=== PATIENT | female | born 1945 | race Caucasian/White ===

== ENCOUNTER 2019-07-04 01:27 | Day surgery (SDC) | payer MEDICARE, SELFPAY ==
[2019-07-02 13:31] VITALS: BMI 25.4
[2019-07-04 08:20] VITALS: BP 146/88; PULSE 80; RESP 16; TEMP 36.2; O2SAT 98; BMI 25.4
[2019-07-04] MEDS: LACTATED RINGERS 1,000 ML 150 ML IV CONT (08:57)
--- NOTE | 2019-07-04 09:13 | P.PNAN_ITS ---
Anes - Initial Pre Proc Eval Procedure: Operation Date: 07/04/19 09:30 Proposed Procedures p Screening Colonoscopy - Christopher Madsen MD Date/Time: 07/04/19 09:13 Surgeon: Christopher Madsen MD Pre Op Diagnosis: Hx Of Colon Polyps Patient Data Age: 73 Gender: F Height: 5 ft 2.4 in Weight: 64 kg Last Vital Signs Temp 97.2 F L 07/04/19 08:20 Pulse 80 07/04/19 08:20 Resp 16 07/04/19 08:20 BP 146/88 H 07/04/19 08:20 Pulse Ox 98 07/04/19 08:20 Allergies Allergy/AdvReac Type Severity Reaction Status Date / Time cephalothin [From Seffin] Allergy Mild Hypotension Verified 07/04/19 08:44 codeine Allergy Mild HYPERACTIVE Verified 07/04/19 08:44 morphine Allergy Unknown Nausea and Verified 07/04/19 08:44 Vomiting ibuprofen AdvReac Mild Confusion Verified 07/04/19 08:44 Home Medications Medication Instructions Recorded Confirmed Type losartan 100 1 tablet PO DAILY #90 tablet 05/12/19 07/04/19 Rx mg-hydrochlorothiazide 12.5 mg tablet paroxetine HCl 10 mg PO DAILY 07/02/19 07/04/19 History Patient hx anesthesia problems: none Family hx anesthesia problems: none [facility] Past Medical History Medical History (Updated 07/04/19 @ 08:50 by Shaq Epps MD) Hypertension Family History Family History (System 06/30/19 @ 14:22 by Estella Maxwell) Mother Hypertension Cerebrovascular accident Family history of coronary artery disease Social History Social History (System 06/30/19 @ 14:22 by Estella Maxwell) Smoking status: Smoker, status unknown Alcohol intake: current Anes - Eval Final PreProcedure Day of Procedure 07/04/19 09:13 Patient weight: normal Heart: regular rate and rhythm Lungs: clear to auscultation Airway: Mallampati scale class II Neurological: alert and oriented Last oral intake: >/= 8 hours ASA classification: II Emergent: no Anesthetic plan: proceed Anesthesia type and monitoring: general GIVS and standard monitoring Informed Consent: The patient's anesthetic plan and its attendant risks and benefits were discussed with the patient/family/POA. Questions were solicited and answers provided to the satisfaction of the patient/family/POA.
--- NOTE | 2019-07-04 09:22 | P.HP_ITS ---
History of Present Illness History of Present Illness Consent: Risks, benefits, and alternatives have been discussed and questions answered. Patient agrees to proceed with procedure. Chief complaint: Hx Of Colon Polyps Narrative: Daja Mckinley is a 73 year old female for screening colonoscopy. She has a history of polyps. [facility] Past Medical History Medical History Hypertension Family History Family History Mother Hypertension Cerebrovascular accident Family history of coronary artery disease Social History Social History Smoking status: Smoker, status unknown Alcohol intake: current Meds Home Medications and Allergies Home Medications Medication Instructions Recorded Confirmed Type losartan 100 1 tablet PO DAILY #90 tablet 05/12/19 07/04/19 Rx mg-hydrochlorothiazide 12.5 mg tablet paroxetine HCl 10 mg PO DAILY 07/02/19 07/04/19 History Allergies Allergy/AdvReac Type Severity Reaction Status Date / Time cephalothin [From Seffin] Allergy Mild Hypotension Verified 07/04/19 08:44 codeine Allergy Mild HYPERACTIVE Verified 07/04/19 08:44 morphine Allergy Unknown Nausea and Verified 07/04/19 08:44 Vomiting ibuprofen AdvReac Mild Confusion Verified 07/04/19 08:44 Vital Signs Vital Signs - 24 hr 07/04/19 08:20 Temperature 36.2 C L Pulse Rate 80 Respiratory Rate 16 Blood Pressure 146/88 H Pulse Oximetry 98 Exam Resp: Auscultation: clear to auscultation bilaterally Cardio: Rate: regular rate Rhythm: regular rhythm GI: GI Palp: Yes Soft to palpation and No Tenderness to palpation present (GI) Assessment and Plan Assessment and plan (1) Personal history of colonic polyps: Code(s): Z86.010 - Personal history of colonic polyps Status: Acute Assessment and Plan: Colonoscopy with possible biopsy or polypectomy or cautery or injection of substances.
[2019-07-04 09:50] VITALS: BP 141/59; PULSE 60; RESP 20; O2SAT 99
[2019-07-04 10:00] VITALS: BP 146/56; PULSE 61; RESP 18; O2SAT 99
[2019-07-04 10:10] VITALS: BP 159/58; PULSE 61; RESP 18; O2SAT 100
== END 2019-07-04 10:31 | disposition home or self-care (01) ==
PROVIDERS: PCP Family Medicine; Visit Provider Internal Medicine Gastroenterology
PROC: 0DJD8ZZ Inspection of Lower Intestinal Tract, Via Natural or Artificial Opening Endoscopic (ICD-10-PCS; CPT 45378; principal; 2019-07-04 09:30)
DX: Z12.11 Encounter for screening for malignant neoplasm of colon (principal); D12.4 Benign neoplasm of descending colon; I10 Essential (primary) hypertension
CPT/HCPCS: 45385; 88305; J2704; J7120

== ENCOUNTER 2020-08-06 14:25 | Outpatient (CLI) | payer MEDICARE, SELFPAY | END 2020-08-06 14:26 | disposition home or self-care (01) | PROVIDERS: PCP Family Medicine; Visit Provider Internal Medicine Gastroenterology | DX: R19.7 Diarrhea, unspecified (principal) | CPT/HCPCS: 87324; 87493 ==

== ENCOUNTER 2020-11-17 07:31 | Outpatient (CLI) | payer MEDICARE, SELFPAY ==
--- NOTE | ~2020-11-17 | CT_ITS ---
EXAMINATION: CT abdomen pelvis w con EXAM DATE: 11/17/2020 08:07 INDICATION: R10.30 - Lower abdominal pain, unspecified . TECHNIQUE: Spiral CT of the abdomen and pelvis was performed following intravenous injection of 100 m L Omnipaque 350. Axial, coronal and sagittal images of the abdomen and pelvis were reviewed. The do se-length product (DLP) for this examination was 349.86 mGy-cm. The exposure was tailored according to patient size (auto mA exposure control), and iterative reconstruction (ASIR) was used as additiona l dose reduction technique. Comparison is made to prior examination from 07/20/2017. FINDINGS: Left adrenal nodularity, probably coupled adenomas larger measuring about 2.8 cm. Appearanc e unchanged. Liver, spleen, right adrenal gland and pancreas are unremarkable. Gallbladder is unrema rkable. No biliary obstruction. Portal and splenic veins are patent. Kidneys enhance symmetrically . There is no hydronephrosis. The uterus is unremarkable. The bladder is unremarkable. There is no retroperitoneal or pelvic lymphadenopathy. There is moderate scattered arteriosclerotic disease . There is nonrotation/malrotation spectrum with the small bowel on the right and most of the colon on the left, although cecal base is subhepatic in position and has fluid, but does not appear obstructed . Colonic redundancy with moderate amount of colonic stool throughout the other portions of the colon . The cecum is subhepatic in position with multiple loops of small bowel and has fluid, but is normal in caliber. The appendix is normal. The stomach and small bowel are unremarkable. There is expecte d amount of colonic stool. No free intraperitoneal gas. The heart is normal in size. There are n o pericardial or pleural effusions. The lung bases are unremarkable. Mild lumbar levoscoliosis. The re are no osteoblastic or osteolytic lesions identified. IMPRESSION: 1. Malrotation/nonrotation spectrum with cecum subhepatic in position, cecal air-fluid level but no obstruction suspected. 2. Left adrenal adenomas. 3. Small umbilical hernia. Reviewed, dictated and finalized at location B. IMPRESSION: 1. Malrotation/nonrotation spectrum with cecum subhepatic in position, cecal a ir-fluid level but no obstruction suspected. 2. Left adrenal adenomas. 3. Small umbilical hernia.
[2020-11-17 07:59] LABS: Estimated Glomerular Filt Rate > 60
== END 2020-11-17 07:32 | disposition home or self-care (01) ==
LOC: ANHIMG 07:36
PROVIDERS: PCP Family Medicine; Visit Provider Internal Medicine Gastroenterology
DX: R10.30 Lower abdominal pain, unspecified (principal); D35.02 Benign neoplasm of left adrenal gland; K42.9 Umbilical hernia without obstruction or gangrene
CPT/HCPCS: 74177; Q9967

== ENCOUNTER 2021-01-08 13:03 | Outpatient (CLI) | payer MEDICARE, SELFPAY | END 2021-01-08 13:04 | disposition home or self-care (01) | PROVIDERS: PCP Family Medicine; Visit Provider Nurse Practitioner Family | DX: R19.7 Diarrhea, unspecified (principal) | CPT/HCPCS: 87324 ==

== ENCOUNTER 2021-02-17 13:09 | Outpatient (CLI) | payer MEDICARE, SELFPAY | END 2021-02-17 13:10 | disposition home or self-care (01) | PROVIDERS: PCP Family Medicine; Visit Provider Nurse Practitioner Family | DX: K52.9 Noninfective gastroenteritis and colitis, unspecified (principal); A04.72 Enterocolitis due to Clostridium difficile, not specified as recurrent | CPT/HCPCS: 87045; 87177; 87209; 87324; 87427 ==

== ENCOUNTER 2021-03-09 00:58 | Day surgery (SDC) | payer MEDICARE, SELFPAY ==
[2021-02-28 12:07] VITALS: BMI 27.3
--- NOTE | 2021-03-08 16:14 | PM.HPGS ---
History of Present Illness History of Present Illness Consent: Risks, benefits, and alternatives have been discussed and questions answered. Patient agrees to proceed with procedure. 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 Now she has chronic diarrhea, despite no longer having infection. We are suspecting that she may have developed inflammatory bowel disease secondary to her prolonged illness, or have at the minimum, microscopic colitis Review of Systems Review of Systems: All systems reviewed & are unremarkable except as noted in HPI and below PMFSH Past Medical History Medical History Abdominal pain BMI 26.0-26.9,adult BMI 27.0-27.9,adult BMI 28.0-28.9,adult Cigarette smoker one half pack a day or less Hypertension Normal colonoscopy Family History Family History Mother Hypertension Cerebrovascular accident Family history of coronary artery disease Social History Social History Social History: yes Smoking packs per day: 0.50 Smoking cigarettes per day: 10.0 Years smoked: 50 Smoking pack-years: 25.00 Smoking status: Current every day smoker Alcohol intake: current Drinks per week: 2 Substance use: never Living arrangements: alone Spiritual care concerns: No Meds Home Medications and Allergies Home Medications Medication Instructions Recorded Confirmed Type escitalopram oxalate 10 mg tablet 10 mg PO DAILY 05/26/20 02/28/21 History dicyclomine 10 mg capsule 10 mg PO QID PRN #120 cap 10/22/20 02/28/21 Rx diphenoxylate-atropine 2.5 1 tablet PO TID #270 tablet 12/23/20 02/28/21 Rx mg-0.025 mg tablet losartan 100 1 tablet PO DAILY #90 tablet 02/23/21 03/09/21 Rx mg-hydrochlorothiazide 12.5 mg tablet Lactobacillus rhamnosus GG 1 cap PO DAILY 02/28/21 02/28/21 History [Culturelle] Saccharomyces boulardii [Florastor] 250 mg PO DAILY 02/28/21 02/28/21 History Allergies Allergy/AdvReac Type Severity Reaction Status Date / Time cephalothin [From Seffin] Allergy Mild Hypotension Verified 03/09/21 06:48 codeine Allergy Mild HYPERACTIVE Verified 03/09/21 06:48 morphine Allergy Unknown Nausea and Verified 03/09/21 06:48 Vomiting ibuprofen AdvReac Mild Confusion Verified 03/09/21 06:48 Exam Const: General: alert Orientation/consciousness: patient oriented x3 Resp: Auscultation: clear to auscultation bilaterally Cardio: Rhythm: regular rhythm GI: GI Palp: Yes Soft to palpation and No Tenderness to palpation present (GI) Neuro: General: patient oriented x3 Assessment and Plan Assessment and plan (1) Chronic diarrhea: Code(s): K52.9 - Noninfective gastroenteritis and colitis, unspecified Status: Acute Assessment and Plan: Colonoscopy with possible biopsy or polypectomy or cautery or injection of substances.
[2021-03-09 06:50] VITALS: BP 182/65; PULSE 86; TEMP 36.1; O2SAT 95
[2021-03-09] MEDS: LACTATED RINGERS 1,000 ML 150 ML IV CONT (07:12)
--- NOTE | 2021-03-09 07:19 | WPDANESEPPF ---
Anes - Initial Pre Proc Eval Procedure: Operation Date: 03/09/21 08:00 Proposed Procedures p Colonoscopy - Christopher Madsen MD Date/Time: 03/09/21 07:19 Surgeon: Christopher Madsen MD Pre Op Diagnosis: diarrhea Patient Data Age: 75 Gender: F Height: 1.57 m Weight: 71.5 kg Last Vital Signs Temp 36.1 C L 03/09/21 06:50 Pulse 86 03/09/21 06:50 BP 182/65 H 03/09/21 06:50 Pulse Ox 95 03/09/21 06:50 Allergies Allergy/AdvReac Type Severity Reaction Status Date / Time cephalothin [From Seffin] Allergy Mild Hypotension Verified 03/09/21 06:48 codeine Allergy Mild HYPERACTIVE Verified 03/09/21 06:48 morphine Allergy Unknown Nausea and Verified 03/09/21 06:48 Vomiting ibuprofen AdvReac Mild Confusion Verified 03/09/21 06:48 Home Medications Medication Instructions Recorded Confirmed Type escitalopram oxalate 10 mg tablet 10 mg PO DAILY 05/26/20 02/28/21 History dicyclomine 10 mg capsule 10 mg PO QID PRN #120 cap 10/22/20 02/28/21 Rx diphenoxylate-atropine 2.5 1 tablet PO TID #270 tablet 12/23/20 02/28/21 Rx mg-0.025 mg tablet losartan 100 1 tablet PO DAILY #90 tablet 02/23/21 03/09/21 Rx mg-hydrochlorothiazide 12.5 mg tablet Lactobacillus rhamnosus GG 1 cap PO DAILY 02/28/21 02/28/21 History [Culturelle] Saccharomyces boulardii [Florastor] 250 mg PO DAILY 02/28/21 02/28/21 History Patient hx anesthesia problems: none Family hx anesthesia problems: none Results Review: All pre-operative results and documents have been reviewed as part of the pre-operative evaluation. [facility] Past Medical History Medical History Abdominal pain BMI 26.0-26.9,adult BMI 27.0-27.9,adult BMI 28.0-28.9,adult Cigarette smoker one half pack a day or less Hypertension Normal colonoscopy Family History Family History Mother Hypertension Cerebrovascular accident Family history of coronary artery disease Social History Social History Social History: yes Smoking packs per day: 0.50 Smoking cigarettes per day: 10.0 Years smoked: 50 Smoking pack-years: 25.00 Smoking status: Current every day smoker Alcohol intake: current Drinks per week: 2 Substance use: never Living arrangements: alone Spiritual care concerns: No Anes - Eval Final PreProcedure Day of Procedure 03/09/21 07:19 Patient weight: overweight Heart: regular rate and rhythm Lungs: clear to auscultation Airway: Mallampati scale class II Neurological: alert and oriented Last oral intake: >/= 8 hours ASA classification: III Emergent: no Anesthetic plan: proceed Anesthesia type and monitoring: general GIVS and standard monitoring Results Review: All pre-operative results and documents have been reviewed as part of the pre-operative evaluation. Informed Consent: The patient's anesthetic plan and its attendant risks and benefits were discussed with the patient/family/POA. Questions were solicited and answers provided to the satisfaction of the patient/family/POA.
[2021-03-09 08:28] VITALS: BP 123/50; PULSE 56; RESP 16; O2SAT 97
[2021-03-09 08:38] VITALS: BP 175/65; PULSE 61; RESP 23; O2SAT 100
[2021-03-09 08:48] VITALS: BP 179/89; PULSE 66; RESP 23; O2SAT 98
== END 2021-03-09 08:58 | disposition home or self-care (01) ==
PROVIDERS: PCP Family Medicine; Visit Provider Internal Medicine Gastroenterology
PROC: 0DJD8ZZ Inspection of Lower Intestinal Tract, Via Natural or Artificial Opening Endoscopic (ICD-10-PCS; CPT 45378; principal; 2021-03-09 08:00)
DX: K52.9 Noninfective gastroenteritis and colitis, unspecified (principal); K63.5 Polyp of colon; K62.1 Rectal polyp; K64.8 Other hemorrhoids; I10 Essential (primary) hypertension; F17.210 Nicotine dependence, cigarettes, uncomplicated
CPT/HCPCS: 45380; 45385; 88305; J2704; J7120

== ENCOUNTER 2021-05-21 15:09 | Outpatient (CLI) | payer MEDICARE, SELFPAY ==
[2021-05-21 05:28] LABS: Toxigenic C. Diff NEGATIVE (NEGATIVE)
== END 2021-05-21 15:10 | disposition home or self-care (01) ==
LOC: ANHLAB 05-31 10:33
PROVIDERS: PCP Family Medicine; Visit Provider Internal Medicine Gastroenterology
DX: R19.7 Diarrhea, unspecified (principal)
CPT/HCPCS: 87324; 87493; 89055

== ENCOUNTER 2021-06-25 19:56 | Emergency (ER) | payer MEDICARE, SELFPAY ==
[2021-06-25] VITALS (7 sets, daily range): BP systolic 136–210; BP diastolic 73–84; PULSE 71–82; RESP 10–20; TEMP 36.3; O2SAT 96–100
--- NOTE | ~2021-06-25 | CT_ITS ---
EXAMINATION: CT abdomen pelvis w con DATE: 06/25/2021 20:59 INDICATION: Lower abdominal pain. History of irritable bowel syndrome. TECHNIQUE: Computed tomography (CT) of the abdomen and pelvis was performed with 100 cc Omnipaque 350 intravenous contrast. The dose-length product was 326.17 mGy-cm. Automated exposure control and ite rative reconstruction technique were employed. COMPARISON: CT dated 11/17/2020. FINDINGS: There is malrotation of the bowel. No bowel obstruction identified. Small fat-containing um bilical hernia. Prominent parametrial vessels are noted bilaterally, which can be seen with pelvic co ngestion syndrome. There is atherosclerosis of the aorta without aneurysm. The liver, spleen, pancrea s, right adrenal gland and kidneys are unremarkable. Gallbladder is present. No lymphadenopathy. No l ytic or blastic lesions. Moderate lower lumbar spondylosis with grade 1 spondylolisthesis at L4-5 sec ondary to facet hypertrophy. There are left adrenal adenoma glands. IMPRESSION: 1. Dilated bilateral parametrial vessels, which can be seen with pelvic congestion syndrome. 2: Bowel malrotation. No obstruction. Reviewed, dictated and finalized at location A. [employer] IMPRESSION: 1. Dilated bilateral parametrial vessels, which can be seen with pelvic congest ion syndrome. 2: Bowel malrotation. No obstruction.
--- NOTE | 2021-06-25 20:06 | ECG_ITS ---
Measurements Intervals [place] Rate: 75 P: 51 DE: 219 QRS: -22 QRSD: 146 T: 114 QT: 413 QTc: 464 Interpretive Statements SINUS RHYTHM WITH FIRST DEGREE AV BLOCK LEFT BUNDLE BRANCH BLOCK [120+ ms QRS DURATION, 80+ ms Q/S IN V1/V2, 85+ ms R IN I/aVL/V5/V6] BASELINE ARTIFACT V5 ABNORMAL ECG NO PREVIOUS ECG AVAILABLE FOR COMPARISON Electronically Signed On 06-26-2021 11:05:38 [employer] by Jong Villanueva M.D.
[2021-06-25 20:16] LABS: Basophils Absolute Auto 0.1 K/mm3 (0.0-0.1); Basophils Percent Auto 0.5 % (0.2-1.2); Eosinophils Absolute Auto 0.2 K/mm3 (0-0.3); Eosinophils Percent Auto 1.3 % (0-4.4); Hematocrit 40.1 % (37.0-47.0); Hemoglobin 13.8 g/dL (12.0-15.0); Immature Granulocyte Absolute 0.03 K/mm3 (0.00-0.031); Immature Granulocyte Percent A 0.3 % (0-0.5); Lymphocytes Absolute Auto 4.17 K/mm3 (0.9-3.2); Mean Corpuscular HGB Conc 34.4 g/dl (32-36); Mean Corpuscular Hemoglobin 31.3 pg (26-34); Mean Corpuscular Volume 90.9 fl (80-100); Mean Platelet Volume 9.2 fl (7.4-10.4); Monocytes Absolute Auto 0.8 K/mm3 (0.1-0.6); Monocytes Percent Auto 7.5 % (2.6-8.5); Neutrophils Percent Auto 53.4 % (45.5-73.1); Platelet Count Result 430 k/mm3 (150-375); Red Blood Count 4.41 M/mm3 (4.2-5.4); Red Cell Distribution Width 13.1 % (11.5-14.5); White Blood Count 11.3 K/mm3 (4.5-10.0)
[2021-06-25] MEDS: SODIUM CHLORIDE 0.9% IV 1,000 ML 999 ML IV CONT (20:27)
[2021-06-25 20:32] LABS: Alanine Aminotransferase 19 U/L (4-35); Albumin Level 4.6 g/dL (3.5-5.1); Alkaline Phosphatase 144 U/L (38-126); Anion Gap 9 mmol/L (8-16); Aspartate Amino Transferase 40 U/L (14-36); Bilirubin,Total 0.4 mg/dL (0.2-1.3); Blood Urea Nitrogen 9 mg/dL (7-17); Calcium 9.1 mg/dL (8.4-10.2); Carbon Dioxide 27 mmol/L (22-30); Chloride 95 mmol/L (98-107); Estimated CRCL calculation 53 ml/min; Estimated Glomerular Filt Rate > 60; Glucose 114 mg/dL (65-110); Lipase 61 U/L (23-300); Potassium 3.6 mmol/L (3.4-5.0); Sodium 131 mmol/L (137-145)
[2021-06-25 21:28] LABS: Add Urine Microscopic? NO; Appearance Urine Clear (Clear); Bilirubin Urine Negative (Negative); Blood Urine Negative (Negative); Color Urine Colorless (Yellow); Glucose Urine UA Negative (Negative); Ketones Urine Negative (Negative); Leukocyte Esterase Ur Negative LEU/UL (Negative); Nitrate Urine Negative (Negative); Protein Urine Negative (Negative); Specific Grav Ur 1.016 (1.001-1.035); Urobilinogen Urine Negative mg/dL (<2.0)
--- NOTE | 2021-06-25 21:41 | ED.ABDPAIN ---
HPI - Abdominal Pain General Chief Complaint: Abdominal Pain Stated Complaint: Abd pain, lightheaded Time Seen by Provider: 06/25/21 20:00 Source: patient History of Present Illness HPI narrative: Patient presents with abdominal pain weakness and feeling she is going to pass out. Patient reports intermittent abdominal pain for many years who she sees Dr. Madsen for. Today her symptoms appear to be a little bit worse and she was seeing black spots like she was going to pass out so she came to the ER for evaluation. She denies chest pain or shortness of breath just reports feeling weak all over. Her abdominal pain is achy, constant is primarily in her lower abdomen no radiation no clear aggravating or alleviating factors. Related Data Home Medications Medication Instructions Recorded Confirmed escitalopram oxalate 10 mg tablet 10 mg PO DAILY 05/26/20 05/17/21 Culturelle 1 cap PO DAILY 02/28/21 05/17/21 Saccharomyces boulardii [Florastor] 250 mg PO DAILY 02/28/21 05/17/21 Allergies Allergy/AdvReac Type Severity Reaction Status Date / Time cephalothin [From Seffin] Allergy Mild Hypotension Verified 05/17/21 13:04 codeine Allergy Mild HYPERACTIVE Verified 05/17/21 13:04 morphine Allergy Unknown Nausea and Verified 05/17/21 13:04 Vomiting ibuprofen AdvReac Mild Confusion Verified 05/17/21 13:04 Review of Systems Review of Systems: CONSTITUTIONAL: Denies fever, chills, or sweats. EYES: Denies visual changes, redness, or discharge. ENT: Denies rhinorrhea, congestion, sore throat, or otalgia. CARDIOVASCULAR: Denies chest pain, palpitations, or edema. RESPIRATORY: Denies cough or dyspnea. GASTROINTESTINAL: Denies nausea, vomiting, or diarrhea. GENITOURINARY: Denies dysuria or hematuria. SKIN: Denies rash or itching. MUSCULOSKELETAL: Denies back pain, joint pain, or myalgia. NEUROLOGIC: Denies headache, numbness, or focal weakness. PSYCHIATRIC: Denies anxiety or depression. All systems reviewed & are unremarkable except as noted in HPI and below PMFSH Past Medical History Medical History Abdominal pain BMI 26.0-26.9,adult BMI 27.0-27.9,adult BMI 28.0-28.9,adult Cigarette smoker one half pack a day or less Hypertension Irritable bowel syndrome with diarrhea Normal colonoscopy Family History Family History Mother Hypertension Cerebrovascular accident Family history of coronary artery disease Social History Social History Social History: yes Smoking packs per day: 0.50 Smoking cigarettes per day: 10.0 Years smoked: 50 Smoking pack-years: 25.00 Alcohol intake: current Drinks per week: 2 Substance use: never Spiritual care concerns: No Exam Narrative: GENERAL: Well-appearing, well-nourished, and in no acute distress. HEAD: Normocephalic, atraumatic. EYES: PERRLA and EOMI. ENT: Nares clear, no rhinorrhea or epistaxis. Mucous membranes moist. NECK: Supple. No masses. No JVD CHEST: Clear to auscultation. No respiratory distress. No wheezes rales or rhonchi HEART: Regular rate and rhythm. No murmur heard. Normal peripheral pulses. ABDOMEN: Mild tenderness with palpation of the lower abdomen no rebound or guarding soft, nondistended sounds. EXTREMITIES: Normal range of motion. No edema. SKIN: Warm, dry, no rash. NEURO: No focal deficits. Alert and oriented x3. PSYCH: Normal mood and affect. Course Reevaluation(s) Reevaluation #1: Patient is feeling improved results and plan reviewed with patient. Patient is comfortable outpatient plan. Date: 06/25/21 Time: 21:44 Vital Signs Vital signs: Vital Signs Temperature 36.3 C L 06/25/21 20:01 Pulse Rate 82 06/25/21 20:01 Respiratory Rate 20 06/25/21 20:01 Blood Pressure 210/73 H 06/25/21 20:01 Pulse Oximetry 100 06/25/21 20:01 Temperature 36.3 C L
== END 2021-06-25 22:05 | disposition home or self-care (01) ==
PROVIDERS: Emergency Provider Emergency Medicine; PCP Family Medicine
DX: R42 Dizziness and giddiness (principal); R10.30 Lower abdominal pain, unspecified; I10 Essential (primary) hypertension; K58.0 Irritable bowel syndrome with diarrhea; F17.210 Nicotine dependence, cigarettes, uncomplicated; I44.7 Left bundle-branch block, unspecified; I44.0 Atrioventricular block, first degree
CPT/HCPCS: 36415; 74177; 80053; 81003; 83690; 85025; 93005; 96361; 96365; 99284; J0131; J7030; Q9967

== ENCOUNTER 2021-12-21 12:41 | Outpatient (CLI) | payer MEDICARE, SELFPAY ==
[2021-12-28 20:47] LABS: Calprotectin, Stool 35 mcg/g
== END 2021-12-21 12:42 | disposition home or self-care (01) ==
LOC: ANHLAB 12:43
PROVIDERS: PCP Family Medicine; Visit Provider Internal Medicine Gastroenterology
DX: K52.9 Noninfective gastroenteritis and colitis, unspecified (principal)
CPT/HCPCS: 83993

== ENCOUNTER → 2022-01-10 14:40 | Outpatient (CLI) | payer MEDICARE, SELFPAY ==
--- NOTE | ~2022-01-10 | MM_ITS ---
EXAMINATION: MM screening [facility] BI w galindo HISTORY: Screening mammogram TECHNIQUE: Craniocaudal and mediolateral oblique 3-D tomosynthesis images were obtained and synthetic 2-D images were generated. CAD analysis was submitted and interpreted. COMPARISON: 09/27/2017, 07/28/2014 BREAST PARENCHYMAL COMPOSITION: There are scattered areas of fibroglandular density. FINDINGS: There is no suspicious mass, calcification, or architectural distortion to suggest malignan cy in either breast. There has been no suspicious interval change. IMPRESSION: 1. No mammographic evidence of malignancy. 2. Recommend routine screening mammography in one year. BI-RADS Category 1: Negative Reviewed, dictated and finalized at location A.
--- NOTE | ~2022-01-10 | DEXA_ITS ---
Bone Density Report Name: RAFAEL MCNALLY Age: 76 Sex: Female Ethnicity: White Date of : 1945 Indication: postmenopausal; screening for osteoporosis; height loss; history of glucocorticoids; prior fracture; Referring Provider: Johanny, Altagracia Renee Study: Bone densitometry was performed. Exam Date: January 10, 2022 Accession number: [id number] Bone Density: Region BMD T-score Z-score Classification AP Spine (L1-L4) 1.103 0.5 3.1 Normal Femoral Neck (Left) 0.729 -1.1 1.1 Osteopenia Total Hip (Left) 0.895 -0.4 1.6 Normal Femoral Neck (Right) 0.664 -1.7 0.6 Osteopenia Total Hip (Right) 0.827 -0.9 1.0 Normal Total Hip Mean 0.861 -0.7 1.3 Normal World Health Organization criteria for BMD impression classify patients as: Normal (T-score at or above -1.0), Osteopenia (T-score between -1.0 and -2.5), or Osteoporosis (T-score at or below -2.5). 10-year Fracture Risk(1): Major Osteoporotic Fracture 29% Hip Fracture 11% Reported Risk Factors: [place] (), Neck BMD=0.664, BMI=27.5, previous fracture, smoking, glucocorticoids (1) FRAX(R) Version 3.08. Fracture probability calculated for an untreated patient. Fracture probability may be lower if the patient has received treatment. Previous Exams: Region Exam Age BMD T-score BMD Change BMD Change Date g/cm2 vs Baseline vs Previous AP Spine(L1-L4) 01/10/2022 76 1.103 0.5 0.081 -0.010 09/27/2017 72 1.113 0.6 0.091 0.056* 07/28/2014 68 1.057 0.1 0.035 -0.012 09/04/2012 66 1.069 0.2 0.047 0.081* 03/19/2009 63 0.988 -0.5 -0.034 0.025* 11/13/2006 61 0.964 -0.8 -0.059 -0.059 09/14/2004 59 1.022 -0.2 Total Hip(Left) 01/10/2022 76 0.895 -0.4 -0.056 -0.028* 09/27/2017 72 0.923 -0.2 -0.028 -0.039* 07/28/2014 68 0.962 0.2 0.011 -0.020 09/04/2012 66 0.982 0.3 0.031 0.096* 03/19/2009 63 0.886 -0.5 -0.065 -0.053* 11/13/2006 61 0.939 0.0 -0.012 -0.012 09/14/2004 59 0.951 0.1 Total Hip(Right) 01/10/2022 76 0.827 -0.9 -0.089 -0.017 09/27/2017 72 0.844 -0.8 -0.072 -0.087* 07/28/2014 68 0.930 -0.1 0.014 0.033* 09/04/2012 66 0.898 -0.4 -0.019 0.057* 03/19/2009 63 0.840 -0.8 -0.076 -0.065* 11/13/2006 61 0.905 -0.3 -0.011 -0.011 09/14/2004 59 0.916 -0.2
== END ==
PROVIDERS: PCP Family Medicine; Visit Provider Nurse Practitioner Obstetrics & Gynecology
DX: Z12.31 Encounter for screening mammogram for malignant neoplasm of breast (principal); Z78.0 Asymptomatic menopausal state; M85.851 Other specified disorders of bone density and structure, right thigh; M85.852 Other specified disorders of bone density and structure, left thigh
CPT/HCPCS: 77063; 77067; 77080

== ENCOUNTER 2022-07-04 15:34 | Outpatient (CLI) | payer MEDICARE, SELFPAY ==
[2022-07-04 16:35] LABS: Toxigenic C. Diff NEGATIVE (NEGATIVE)
== END 2022-07-04 15:35 | disposition home or self-care (01) ==
PROVIDERS: PCP Family Medicine; Visit Provider Nurse Practitioner Family
DX: R19.7 Diarrhea, unspecified (principal)
CPT/HCPCS: 87493

== ENCOUNTER 2022-07-17 13:59 | Emergency (ER) | payer MEDICARE, SELFPAY ==
[2022-07-17] VITALS (7 sets, daily range): BP systolic 155–196; BP diastolic 63–97; PULSE 52–59; RESP 17–20; TEMP 36.6; O2SAT 96–99
--- NOTE | ~2022-07-17 | XR_ITS ---
EXAMINATION: XR chest 1V portable INDICATION: Chest pain TECHNIQUE: Portable AP chest at 1739 hours COMPARISON: None available FINDINGS: The lungs are free of acute opacities. No pleural effusion or pneumothorax. The cardiomedia stinal silhouette is normal. Calcified left hilar lymph nodes are consistent with old granulomatous d isease. There is partially imaged orthopedic hardware in the left humerus. IMPRESSION: 1. No acute cardiopulmonary abnormality. Reviewed, dictated and finalized at location F.
--- NOTE | ~2022-07-17 | CT_ITS ---
EXAMINATION: CT brain wo con DATE: 07/17/2022 15:46 INDICATION: Head injury. Headache. Hypertension. TECHNIQUE: Computed tomography (CT) of the head was performed without intravenous contrast. The mA wa s adjusted according to patient size. Iterative reconstruction technique was employed. Exam dose: 60 5.33 mGy-cm total exam DLP. COMPARISON: 08/05/2012 CT brain FINDINGS: There is nonspecific diminished attenuation of the cerebral white matter, likely due to chr onic small vessel ischemic changes. Prominent bilateral carotid siphon and supraclinoid internal manzanares tid artery calcifications are noted. Bilateral chronic basal ganglia lacunar infarcts. No intracranial mass lesion or hemorrhage or recent cerebrovascular accident is evident. No midline s hift or mass effect. No subdural or epidural hematoma. There is opacification of some posterior inferior right mastoid air cells. The mastoid air cells and included paranasal sinuses are otherwise unremarkable. No fracture or bone destruction of the cranial vault. IMPRESSION: Bilateral chronic basal ganglia lacunar infarcts Cerebral atherosclerosis and chronic small vessel ischemic changes of the cerebral white matter No acute intracranial finding or skull fracture Reviewed, dictated and finalized at Location A. Reviewed, dictated and finalized at location B. IMPRESSION: Bilateral chronic basal ganglia lacunar infarcts Cerebral atherosclerosis and chronic small vessel ischemic changes of the cereb ral white matter No acute intracranial finding or skull fracture
--- NOTE | ~2022-07-17 | CT_ITS ---
EXAMINATION: CTA chest abdomen DATE: 07/17/2022 18:39 INDICATION: Chest and abdominal pain TECHNIQUE: Computed tomographic angiography (CTA) of the chest and abdomen was performed with 100 mL Omnipque-350 intravenous contrast. Maximum intensity projection 3D-reconstructions of the aorta and o ther arteries were constructed by the technologist on a separate workstation. The dose-length product (DLP) was 286.43 mGy-cm. Automated exposure control and iterative reconstruction technique were empl oyed. COMPARISON: 06/25/2021 FINDINGS: CHEST CTA: There is no aneurysm or dissection of the thoracic aorta. There is mild calcified atherosclerosis wit hout hemodynamically significant stenosis. There is mild scarring of the lung apices. Mild emphysema is noted. There is mild dependent atelectasis. No pleural effusion or pneumothorax. No pathologically enlarged thoracic lymph nodes are identified. The heart size is normal. Calcified coronary artery at herosclerosis is noted. Calcified pulmonary nodules and calcified left hilar and subcarinal lymph nod es are consistent with old granulomatous disease. ABDOMEN AND PELVIS CTA: There is no aneurysm or dissection of the abdominal aorta. There is calcified atherosclerosis and mod erate stenosis at the origin of the celiac axis. There is calcified atherosclerosis at the origins of the superior mesenteric and inferior mesenteric arteries without hemodynamically significant stenosi s. An accessory mesenteric vessel arises from the mid abdominal aorta. There are two renal arteries b ilaterally. There is mild to moderate stenosis at the origin of the larger of the two right renal art eries. The liver, spleen, pancreas, gallbladder, and right adrenal gland are normal. There is a chron ic low-density left adrenal mass, consistent with an adenoma. The kidneys are unremarkable. No pathol ogically enlarged abdominal lymph nodes are identified. No free intraperitoneal gas or evidence of nettie wel obstruction. Severe lumbar spondylosis is noted. IMPRESSION: 1. No aneurysm or dissection of the aorta. Additional vascular disease of the abdomen as described ab ove. Reviewed, dictated and finalized at location F. IMPRESSION: 1. No aneurysm or dissection of the aorta. Additional vascular disease of the a bdomen as described above.
--- NOTE | 2022-07-17 17:31 | ECG_ITS ---
Measurements Intervals [place] Rate: 56 P: 54 SC: 200 QRS: -28 QRSD: 150 T: 142 QT: 444 QTc: 431 Interpretive Statements SINUS BRADYCARDIA LEFT BUNDLE BRANCH BLOCK ABNORMAL ECG COMPARED TO ECG 06/25/2021 20:11:00 SINUS BRADYCARDIA NOW PRESENT Electronically Signed On 07-17-2022 21:41:53 CDT by Richard Fernandes D.O.
--- NOTE | 2022-07-17 17:34 | ED.GENADULT ---
HPI - General Adult General Chief complaint: Recheck/Abnormal Lab/Rx Stated complaint: High Blood Pressure Time Seen by Provider: 07/17/22 17:12 History of Present Illness HPI narrative: 76-year-old female with a history of hypertension and IBS reports for evaluation of high blood pressure. Patient was at her GI appointment today, they took her vitals and her BP was 190 systolic and they sent her to the ED. Patient is complaining of frontal headache which she reports is at baseline headache for her. She reported migrating abdominal pain which she attributed to gas pains. The pain did not radiate anywhere and she reports it is unchanged from her normal gas pains. She denies CP, vision changes, focal numbness or weakness, difficulty ambulating, dizziness or lightheadedness, shortness of breath, back pain, neck pain. Pt reports her BP at home usually runs 130-140/70s. She did take her BP medications this morning and reports taking them daily as prescribed. She denies personal history of CA, heart failure, diabetes, hyperlipidemia. Reports no family history of CAD or diabetes. Related Data Home Medications Medication Instructions Recorded Confirmed escitalopram oxalate 10 mg tablet 10 mg PO DAILY 05/26/20 07/17/22 (Lexapro) Saccharomyces boulardii 250 mg 250 mg PO DAILY 02/28/21 07/17/22 capsule (Florastor) Allergies Allergy/AdvReac Type Severity Reaction Status Date / Time cephalothin [From Seffin] Allergy Mild Hypotension Verified 07/18/22 16:55 codeine Allergy Mild HYPERACTIVE Verified 07/18/22 16:55 morphine Allergy Unknown Nausea and Verified 07/18/22 16:55 Vomiting ibuprofen AdvReac Mild Confusion Verified 07/18/22 16:55 Review of Systems Review of Systems: CONSTITUTIONAL: Denies fever, chills EYES: Denies visual changes, redness, or discharge. ENT: Denies rhinorrhea, congestion, sore throat, or otalgia. CARDIOVASCULAR: Denies palpitations, or edema. RESPIRATORY: Denies cough or dyspnea. GASTROINTESTINAL: Denies abdominal pain, nausea, vomiting, or diarrhea. GENITOURINARY: Denies dysuria or hematuria. SKIN: Denies rash or itching. MUSCULOSKELETAL: Denies back pain, joint pain, or myalgia. NEUROLOGIC: Denies numbness, dizziness, or weakness. PSYCHIATRIC: Denies anxiety or depression. [facility] Past Medical History Medical History Abdominal pain BMI 26.0-26.9,adult BMI 27.0-27.9,adult BMI 28.0-28.9,adult Cigarette smoker one half pack a day or less Hypertension Irritable bowel syndrome with diarrhea Normal colonoscopy Surgical History Surgical History History of bladder surgery History of shoulder surgery History of tonsillectomy Family History Family History Mother Hypertension Cerebrovascular accident Family history of coronary artery disease Father Tuberculosis Sibling Brain aneurysm Social History Social History Social History: yes Smoking packs per day: 0.50 Smoking cigarettes per day: 10.0 Years smoked: 50 Smoking pack-years: 25.00 Smoking status: Current every day smoker Tobacco type: cigarettes Second hand tobacco smoke exposure: No Alcohol intake: current Drinks per week: 2 Substance use: never Substance use type: does not use Living arrangements: alone 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 Patient resting in exam bed comfortably. She is pleasant and conversational. HEAD: Normocephalic, atraumatic. EYES: PERRLA and EOMI. ENT: Nares clear, no rhinorrhea or epistaxis. Mu
[2022-07-17] MEDS: ASPIRIN 81 MG CHEWABLE TABLET 324 MG PO (17:52)
[2022-07-17 18:02] LABS: Basophils Absolute Auto 0.1 K/mm3 (0.0-0.1); Basophils Percent Auto 0.5 % (0.2-1.2); Eosinophils Absolute Auto 0.2 K/mm3 (0-0.3); Eosinophils Percent Auto 1.8 % (0-4.4); Hematocrit 35.3 % (37.0-47.0); Hemoglobin 12.1 g/dL (12.0-15.0); Immature Granulocyte Absolute 0.02 K/mm3 (0.00-0.031); Immature Granulocyte Percent A 0.2 % (0-0.5); Lymphocytes Absolute Auto 3.14 K/mm3 (0.9-3.2); Lymphocytes Percent Auto 32.4 % (18.3-44.2); Mean Corpuscular HGB Conc 34.3 g/dl (32-36); Mean Corpuscular Hemoglobin 30.4 pg (26-34); Mean Corpuscular Volume 88.7 fl (80-100); Monocytes Absolute Auto 0.7 K/mm3 (0.1-0.6); Monocytes Percent Auto 7.1 % (2.6-8.5); Neutrophils Absolute Auto 5.6 K/mm3 (1.3-6.7); Platelet Count Result 320 k/mm3 (150-375); Red Blood Count 3.98 M/mm3 (4.2-5.4); Red Cell Distribution Width 13.1 % (11.5-14.5); White Blood Count 9.7 K/mm3 (4.5-10.0)
[2022-07-17 18:11] LABS: Appearance Urine Clear (Clear); Bilirubin Urine Negative (Negative); Blood Urine Negative (Negative); Color Urine Yellow (Yellow); Glucose Urine UA Negative (Negative); Ketones Urine Negative (Negative); Leukocyte Esterase Ur Negative LEU/UL (Negative); Nitrate Urine Negative (Negative); Protein Urine Negative (Negative); Specific Grav Ur 1.006 (1.001-1.035); Urobilinogen Urine 0.2 mg/dL (<2.0)
[2022-07-17 18:12] LABS: Alanine Aminotransferase 17 U/L (6-35); Albumin Level 4.3 g/dL (3.5-5.1); Alkaline Phosphatase 114 U/L (38-126); Anion Gap 6 mmol/L (8-16); Aspartate Amino Transferase 20 U/L (14-36); Bilirubin,Total 0.5 mg/dL (0.2-1.3); Blood Urea Nitrogen 8 mg/dL (7-17); Calcium 8.7 mg/dL (8.4-10.2); Carbon Dioxide 30 mmol/L (22-30); Chloride 101 mmol/L (98-107); Estimated CRCL calculation 52 ml/min; Estimated Glomerular Filt Rate > 60; Glucose 96 mg/dL (65-110); Lipase 26 U/L (23-300); Potassium 3.9 mmol/L (3.4-5.0); Sodium 137 mmol/L (137-145)
[2022-07-17 18:14] LABS: Add Urine Microscopic? NO
[2022-07-17 18:19] LABS: Partial Thromboplastin Time 25.3 SECONDS (22.3-36.8); Prothrombin Time 12.9 Seconds (11.1-14.7)
[2022-07-17 18:25] LABS: Troponin I < 0.012 ng/mL (0.000-0.034)
[2022-07-17 21:10] LABS: Troponin I < 0.012 ng/mL (0.000-0.034)
[2022-07-17] MEDS: amLODIPine BESYLATE 5 MG TABLET PO (21:48)
--- NOTE | 2022-07-17 22:23 | PC.NURSE ---
Manual blood pressure on left arm had a systolic of 240. Manual blood pressure on right arm had a systolic of 220. Zoe notified.
[2022-07-17] MEDS: hydrALAZINE HCL 20 MG/ML VIAL 10 MG IV PUSH (22:47)
== END 2022-07-17 23:16 | disposition home or self-care (01) ==
PROVIDERS: Emergency Provider Physician Assistant; PCP Family Medicine
DX: I10 Essential (primary) hypertension (principal); R51.9 Headache, unspecified; K58.0 Irritable bowel syndrome with diarrhea; F17.210 Nicotine dependence, cigarettes, uncomplicated; I67.2 Cerebral atherosclerosis; K55.1 Chronic vascular disorders of intestine; I70.1 Atherosclerosis of renal artery; E27.8 Other specified disorders of adrenal gland; I44.7 Left bundle-branch block, unspecified; R00.1 Bradycardia, unspecified
CPT/HCPCS: 36415; 70450; 71045; 71275; 74175; 80053; 81003; 83690; 84484; 85025; 85610; 85730; 93005; 96365; 96372; 96375; 99284; A9270; J0131; J0360; Q9967

== ENCOUNTER 2022-07-18 16:52 | Emergency (ER) | payer MEDICARE, SELFPAY ==
[2022-07-18 17:03] VITALS: BP 177/52; PULSE 60; RESP 20; TEMP 36.7; O2SAT 98
[2022-07-18 21:17] VITALS: BP 173/69; PULSE 57; RESP 18; O2SAT 96
--- NOTE | 2022-07-18 22:25 | ED.RECABL ---
HPI - Recheck/Abnormal Lab/Rx General Chief Complaint: Recheck/Abnormal Lab/Rx Stated Complaint: high BP Time Seen by Provider: 07/18/22 22:04 History of Present Illness HPI narrative: Patient is a 76-year-old female with a history of hypertension here due to elevated blood pressure rates at home. She was seen in the ED and evaluated last evening for the same. She had a full work-up including head CT, CTA, labs, EKG and chest x-ray all of which were reassuring. She was placed on amlodipine after discussion with her primary care doctor. Patient has been taking her blood pressure every 30 minutes at home and is concerned that her systolic read is still over 170. She continues to deny any chest pain, shortness of breath, fevers or chills, altered mental status, headache or visual changes. Related Data Home Medications Medication Instructions Recorded Confirmed escitalopram oxalate 10 mg tablet 10 mg PO DAILY 05/26/20 07/17/22 (Lexapro) Saccharomyces boulardii 250 mg 250 mg PO DAILY 02/28/21 07/17/22 capsule (Florastor) Allergies Allergy/AdvReac Type Severity Reaction Status Date / Time cephalothin [From Seffin] Allergy Mild Hypotension Verified 07/18/22 16:55 codeine Allergy Mild HYPERACTIVE Verified 07/18/22 16:55 morphine Allergy Unknown Nausea and Verified 07/18/22 16:55 Vomiting ibuprofen AdvReac Mild Confusion Verified 07/18/22 16:55 Review of Systems Review of Systems: Gen.: Denies fevers or chills Eyes: Denies eye pain or visual change ENT: Denies congestion Respiratory: Denies shortness of breath or cough CV: Denies chest pain or palpitations GI: Denies abdominal pain nausea, emesis or diarrhea denies burning, urgency, frequency or hematuria Musculoskeletal: Denies back pain or muscle pain Neuro: Denies numbness, tingling, weakness or focal weakness Skin: Denies rash Except as documented, all other systems reviewed and negative [facility] Past Medical History Medical History Abdominal pain BMI 26.0-26.9,adult BMI 27.0-27.9,adult BMI 28.0-28.9,adult Cigarette smoker one half pack a day or less Hypertension Irritable bowel syndrome with diarrhea Normal colonoscopy Surgical History Surgical History History of bladder surgery History of shoulder surgery History of tonsillectomy Family History Family History Mother Hypertension Cerebrovascular accident Family history of coronary artery disease Father Tuberculosis Sibling Brain aneurysm Social History Social History Social History: yes Smoking packs per day: 0.50 Smoking cigarettes per day: 10.0 Years smoked: 50 Smoking pack-years: 25.00 Smoking status: Current every day smoker Tobacco type: cigarettes Second hand tobacco smoke exposure: No Alcohol intake: current Drinks per week: 2 Substance use: never Substance use type: does not use Living arrangements: alone 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 Head: Normocephalic and atraumatic. EYES: PERRLA/EOMI, conjunctivae clear NOSE: No nasal drainage EARS: External ear normal in appearance THROAT: Oropharynx is clear. Mucous membranes are moist. NECK: Supple. No adenopathy, no masses. RESPIRATORY: Airway patent, respirations nonlabored. Clear to auscultation bilaterally, no rales, rhonchi, wheezing. CARDIOVASCULAR: Regular rate and rhythm without murmurs, rubs, or gallops. ABDOMINAL: Normoactive bowel sounds. Soft, nontender, nondistended. No rebound tenderness or guarding. MUSCU
[2022-07-18 22:34] VITALS: BP 172/60; PULSE 59; RESP 16; O2SAT 97
== END 2022-07-18 22:36 | disposition home or self-care (01) ==
PROVIDERS: Emergency Provider Physician Assistant; PCP Family Medicine
DX: I10 Essential (primary) hypertension (principal); K58.0 Irritable bowel syndrome with diarrhea; F17.210 Nicotine dependence, cigarettes, uncomplicated
CPT/HCPCS: 99281

== ENCOUNTER 2022-07-22 12:11 | Outpatient (CLI) | payer MEDICARE, SELFPAY ==
[2022-07-27 19:56] LABS: Gastrin 18 pg/mL (<=100)
[2022-07-28 04:27] LABS: Calcitonin <2 pg/mL (<=5)
== END 2022-07-22 12:12 | disposition home or self-care (01) ==
PROVIDERS: PCP Family Medicine; Visit Provider Nurse Practitioner Family
DX: K52.9 Noninfective gastroenteritis and colitis, unspecified (principal)
CPT/HCPCS: 36415; 82308; 82941; 83497; 87045; 87177; 87209; 87269; 87427

== ENCOUNTER 2024-07-21 16:07 | Outpatient (CLI) | payer MEDICARE, SELFPAY ==
--- NOTE | ~2024-07-21 | CT_ITS ---
EXAMINATION: CT abdomen pelvis w con DATE: 07/21/2024 16:55 INDICATION: Left lower quadrant abdominal pain TECHNIQUE: Computed tomography (CT) of the abdomen and pelvis was performed with 100 mL Omnipaque-350 intravenous contrast. Automated exposure control and iterative reconstruction technique were employe d. The dose-length product was 414.26 mGy-cm. COMPARISON: 07/17/2022 FINDINGS: Minimal bibasilar atelectasis. Small fat-containing Bochdalek hernia along the posterior right hemidi aphragm. Heart size normal. Atherosclerotic coronary artery calcification. No pericardial or pleural effusion. Small sliding-type hiatal hernia. Liver, gallbladder, spleen, pancreas, bilateral kidneys a nd right adrenal gland are normal. 2.7 x 1.2 cm left adrenal mass which without significant interval change since prior CT and with characteristic low-attenuation on noncontrast CT dated 07/20/2017 consi stent with an adenoma. Which would be most consistent with an adenoma. Bowels are normal with no evid ent wall thickening or obstruction. The appendix is not visualized. No pericecal inflammatory change to suggest acute appendicitis. Bladder, uterus and bilateral adnexa are unremarkable. No free intrape ritoneal gas or fluid. No pathologically enlarged abdominal or pelvic lymphadenopathy. There is calci fied atherosclerosis of the aorta and many of the other arteries. Small fat-containing umbilical mia ia. Mild lumbar levocurvature with severe spondylosis. IMPRESSION: 1. No acute intra-abdominal/pelvic process. 2. Small sliding-type hiatal hernia. 3. Small fat-containing umbilical hernia. Reviewed, dictated and finalized at location B.
[2024-07-21 16:48] LABS: Estimated Glomerular Filt Rate > 60
--- OUTSIDE RECORDS SUMMARY | 2024-07-21 17:26 | XMS_ITS | Clinical Summary ---
Author Organization [facility] [address] Address [address] [place] [address] Care Team Providers Care Clinical Data Specialist Name Role Phone Jong Villanueva MD Unavailable [phone] Vira Fuentes Primary Care Provider [phone] Christopher Madsen MD Unavailable Allergies Active Allergy Reactions Criticality Noted Date Comments Cefuroxime Hives Medium Codeine Nausea only Low Diphenadryl Anxiety Low 10/02/2022 Medications dicyclomine (BENTYL) 20 mg tablet Take 1 tablet (20 mg total) by mouth as needed 04/19/2022 Active escitalopram (LEXAPRO) 10 mg tablet Take 1 tablet (10 mg total) by mouth daily 04/27/2022 Active losartan (COZAAR) 100 mg tablet 1 tablet (100 mg total) daily 05/03/2022 Active diphenoxylate-a tropine (LOMOTIL) 2.5-0.025 mg per tabletIndicatio ns:diarrhea Take 1 tablet by mouth as needed for diarrhea Active metoprolol XL (TOPROL-XL) 25 mg extended release tablet Take 1 tablet (25 mg total) by mouth daily Active cholecalciferol (VITAMIN D-3) 1,000 unit capsule Take 1 capsule (1,000 Units total) by mouth daily Active amLODIPine (NORVASC) 5 mg tablet Take 1 tablet (5 mg total) by mouth daily 11/06/2022 Active Active Problems No known active problems Surgical History Surgery Date Site/Laterality Comments BLADDER SURGERY Bladder Surgery - (Added by TW Conv) Medical History Medical History Date Comments Anxiety Hypertension Family History Medical History Relation Name Comments Hypertension Daughter Hypertension Mother Stroke Mother Cataracts Other Cataract Both E yes - (Added by TW Conv) Brain Aneurysm Sister Diabetes Son Hypertension Son Relation Name Status Comments Daughter Alive Mother Other Sister Son Alive Social History Tobacco Use Types Packs/Day Years Used Date Smoking Tobacco: Former Cigarettes Smokeless Tobacco: Never Tobacco Cessation:Counseling Given: Not Answered Comments Unknown Sex and Gender Information Value Date Recorded Sex Assigned at Not on file 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 Gender Identity Not on file Sexual Orientation Not on file Obstetrics History Last Filed Vital Signs Vital Sign Reading Time Taken Comments Blood Pressure 145/78 01/17/2023 9:37 AM CDT Pulse 57 01/17/2023 9:37 AM CDT Temperature 36.7 C (98.1 F) 01/17/2023 9:37 AM CDT Respiratory Rate - - Oxygen Saturation 99% 01/17/2023 9:37 AM CDT Inhaled Oxygen Concentration - - Weight 64.9 kg (143 lb) 01/17/2023 9:37 AM CDT Height 157.5 cm (5' 2 ) 01/17/2023 9:37 AM CDT Body Mass Index 26.16 01/17/2023 9:37 AM CDT Plan of Treatment Health Maintenance Due Date Last Done Comments Depression Screening 1945 Fall Risk Assessment 1945 Osteoporosis Screening-Bone Density Scan 1945 DTaP/Tdap/Td Vaccine (1 - Tdap) 09/12/1954 Hepatitis B Screening 09/12/1961 Pneumococcal vaccine 65+ (1 of 1 - PCV) 09/12/1993 Well Visit 65+ 09/12/2008 Zoster Vaccine (2 of 3) 04/23/2012 02/27/2012 Covid-19 Vaccine (6 2023-2 5 season) 2023 01/30/2022, 10/29/2021, 03/11/2021, Additional history exists Influenza Vaccine (#1) 2023 , 03/11/2021, 01/30/2020, Additional history exists Insurance MEDICARE COMMERCIAL GENERIC MEDICARE MEDICARE COMMERCIAL GENERIC Care Teams Clinical Data Specialist Relationship Specialty Start Date End Date Vira Fuentes PA [address] [place] [address] PCP - General Physician Commodity Supervisor 09/04/22 Jong Villanueva MD Consulting Physician Cardiology 06/21/21 Christopher Madsen MD [address] [facility] [facility] [address] [address] Referring Physician Gastroenterology 10/02/22
--- OUTSIDE RECORDS SUMMARY | 2024-07-21 17:26 | XMS_ITS | Referral Summary ---
Author Organization [facility] [address] Address [address] [place] [address] Care Team Providers Care Merchandise Support Associate Name Role Phone Jong Villanueva MD Unavailable [phone] Vira Fuentes Primary Care Provider [phone] Christopher Madsen MD Unavailable Allergies Active Allergy [...] Active Active Problems No known active problems Social History Tobacco Use Types Packs/Day Years Used Date Smoking Tobacco: Former Cigarettes Smokeless Tobacco: Never Tobacco Cessation:Counseling Given: Not Answered Comments Unknown Sex and Gender Information Value Date Recorded Sex Assigned at Not on file 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 Gender Identity Not on file Sexual Orientation Not on file Last Filed Vital Signs Vital Sign Reading [...] 01/17/2023 9:37 AM CDT Plan of Treatment Not on file Insurance MEDICARE COMMERCIAL GENERIC MEDICARE MEDICARE COMMERCIAL [facility] Care Teams Merchandise Support Associate Relationship Specialty Start Date End Date Vira Fuentes PA [address] [place] [address] PCP - General Physician Disbursement Clerk 09/04/22 Jong Villanueva MD Consulting Physician Cardiology 06/21/21 Christopher Madsen MD [address] [facility] [address] [facility] [address] [place] [address] Referring Physician Gastroenterology 10/02/22
--- OUTSIDE RECORDS SUMMARY | 2024-07-21 17:26 | XMS_ITS | Clinical Summary ---
Author Organization [facility] [employer] Address [address] [place] [address] [place] [address] Care Team Providers Care Fiber Optic Splicer Name Role Phone Guilherme Alexis MD Primary Care Provider [phone] Source Comments [facility] [employer],non-owned Affiliates and Associated Physician Practices is amultiple site organization consisting of ambulatory clinics and hospital sitesin [place], [place], [place] and [place]. This disclosure is being madepursuant to the Care Everywhere program and may not contain all information available regarding this patient. Last updated 18.[facility] [employer] Allergies Active Allergy Reactions Criticality Noted Date Comments Cefuroxime Itching 10/14/2018 Ibuprofen Other 10/14/2018 Affects her brain function Medications * Be aware that medications may not be up to date on this document. Alwaysverify current medications with the patient. Medication Sig Dispensed Refills Start Date End Date Status medroxyPROGESTERone (PROVERA) 2.5 MG tablet Take 2.5 mg by mouth once daily Active estradiol (ESTRACE) 0.25 MG TABS Take by mouth Twice Daily, Three Times a Week Active escitalopram (LEXAPRO) 10 MG tablet Take 10 mg by mouth once daily Active losartan-hydroCHLOROth iazide (HYZAAR) 100-12.5 MG tablet Take 1 tablet by mouth once daily Active Cholecalciferol (VITAMIN D-3) 1000 units Take by mouth once daily Active Aspirin (SB LOW DOSE ASA EC) 81 MG Take 81 mg by mouth once daily Active Active Problems No known active problems Social History Tobacco Use Types Packs/Day Years Used Date Smoking Tobacco: Every Day Smokeless Tobacco: Never Sex and Gender Information Value Date Recorded Sex Assigned at Not on file Gender Identity Not on file Sexual Orientation Not on file Plan of Treatment Health Maintenance Due Date Last Done Comments BONE DENSITY TESTING 1945 MEDICARE AWV 12 MONTHS 1945 DTAP/TDAP/TD VACCINES (1 - Tdap) 09/12/1962 PNEUMOCOCCAL VACCINE 50+ (1 of 2 - PCV) 09/12/1962 ZOSTER VACCINE (1 of 2) 09/12/1993 Respiratory Syncytial Virus (RSV) Vaccine Pt: or over 60 yrs (1 - 1-dose 75+ series) 09/12/2018 COVID-19 VACCINE ( - 2023-2 5 season) 2023 INFLUENZA VACCINE (#1) 2023 DEPRESSION SCREENING 04/23/2024 HEPATITIS B VACCINE Aged Out No longe r eligible based on patient's age to complete this topic HIB VACCINE Aged Out No longer eligi ble based on patient's age to complete this topic HPV VACCINE Aged Out No longer eligi ble based on patient's age to complete this topic MENINGOCOCCAL (Group B) VACC INE SHARED DECISION-MAKING Aged Out No longer eligibl e based on patient's age to complete this topic MENINGOCOCCAL GROUPS A/C/Y/W VACCINE Aged Out No longer eligible b ased on patient's age to complete this topic Care Teams Fiber Optic Splicer Relationship Specialty Start Date End Date Guilherme Alexis MD [address] [place] [address] PCP - General 03/10/21
[2024-07-21 17:46] LABS: Alanine Aminotransferase 17 U/L (6-35); Albumin Level 4.2 g/dL (3.5-5.1); Alkaline Phosphatase 167 U/L (38-126); Anion Gap 10 mmol/L (4-12); Aspartate Amino Transferase 22 U/L (14-36); Bilirubin,Total 0.7 mg/dL (0.2-1.3); Blood Urea Nitrogen 8 mg/dL (7-17); Calcium 9.1 mg/dL (8.4-10.2); Carbon Dioxide 27 mmol/L (22-30); Chloride 92 mmol/L (98-107); Estimated Glomerular Filt Rate > 60; Glucose 96 mg/dL (65-110); Potassium 4.3 mmol/L (3.4-5.0); Sodium 129 mmol/L (137-145)
[2024-07-21 17:55] LABS: Basophils Absolute Auto 0.1 K/mm3 (0.0-0.1); Basophils Percent Auto 0.7 % (0.2-1.2); Eosinophils Absolute Auto 0.2 K/mm3 (0-0.3); Eosinophils Percent Auto 2.8 % (0-4.4); Hematocrit 36.3 % (37.0-47.0); Hemoglobin 12.1 g/dL (12.0-15.0); Immature Granulocyte Absolute 0.02 K/mm3 (0.00-0.031); Immature Granulocyte Percent A 0.2 % (0-0.5); Lymphocytes Absolute Auto 2.57 K/mm3 (0.9-3.2); Lymphocytes Percent Auto 31.7 % (18.3-44.2); Mean Corpuscular HGB Conc 33.3 g/dl (32-36); Mean Corpuscular Hemoglobin 29.5 pg (26-34); Mean Corpuscular Volume 88.5 fl (80-100); Mean Platelet Volume 10.4 fl (7.4-10.4); Monocytes Absolute Auto 0.6 K/mm3 (0.1-0.6); Monocytes Percent Auto 7.5 % (2.6-8.5); Neutrophils Absolute Auto 4.6 K/mm3 (1.3-6.7); Neutrophils Percent Auto 57.1 % (45.5-73.1); Platelet Count Result 354 k/mm3 (150-375); Red Cell Distribution Width 12.9 % (11.5-14.5); White Blood Count 8.1 K/mm3 (4.5-10.0)
== END 2024-07-21 16:08 | disposition home or self-care (01) ==
PROVIDERS: Physician Assistant Medical; PCP Family Medicine; Visit Provider Family Medicine
DX: K44.9 Diaphragmatic hernia without obstruction or gangrene (principal); K42.9 Umbilical hernia without obstruction or gangrene
CPT/HCPCS: 36415; 74177; 80053; 85025; Q9967

== ENCOUNTER 2024-09-20 19:37 | Emergency (ER) | payer MEDICARE, OTHER, SELFPAY ==
--- NOTE | ~2024-09-20 | XR_ITS ---
EXAMINATION: XR chest 2V DATE: 09/21/2024 00:01 INDICATION: Presyncope TECHNIQUE: frontal and lateral views of the chest were obtained. COMPARISON: Chest radiograph and CT dated 07/17/2022 FINDINGS: A few small bilateral calcified pulmonary nodules along with calcified mediastinal and bilateral agueda r lymph nodes consistent with old granulomatous disease. Small fat-containing Bochdalek hernia at the posterior right lung base seen on CT is also evident on the lateral radiograph. No new airspace opac ities, pulmonary edema, pleural effusion or pneumothorax. Cardiomediastinal silhouette is within norm al limits for AP technique. Old healed proximal left humeral fracture with internal fixation. IMPRESSION: 1. No acute cardiopulmonary disease. Reviewed, dictated and finalized at location A.
--- NOTE | ~2024-09-20 | CT_ITS ---
EXAMINATION: CT abdomen pelvis w con DATE: 09/21/2024 00:41 INDICATION: Left lower quadrant abdominal pain TECHNIQUE: Computed tomography (CT) of the abdomen and pelvis was performed with 100 mL Omnipaque-350 intravenous contrast. Automated exposure control and iterative reconstruction technique were employe d. The dose-length product was 325.62 mGy-cm. COMPARISON: None FINDINGS: Small fat-containing Bochdalek hernia at the posterior right lung base with minimal right basilar ate lectasis. Heart size is normal. No pericardial or pleural effusion. Small sliding-type hiatal hernia. Liver, gallbladder, spleen, pancreas, bilateral kidneys and right adrenal gland are normal. Unchange d 2.6 x 1.4 cm left adrenal mass with characteristic low-attenuation on noncontrast CT dated 8 consistent with an adenoma. Intestinal malrotation with the small bowel in the right abdomen and th e colon in the left abdomen. No bowel obstruction. Normal appendix. Bladder, uterus and bilateral adn exa are unremarkable. There is calcified atherosclerosis of the aorta and many of the other arteries. No free intraperitoneal gas or fluid. No pathologically enlarged abdominal or pelvic lymphadenopathy . Severe lower lumbar spondylosis. IMPRESSION: 1. No acute intra-abdominal/pelvic process. 2. Intestinal malrotation. 3. Small sliding-type hiatal hernia. Reviewed, dictated and finalized at location A.
--- OUTSIDE RECORDS SUMMARY | 2024-09-20 19:41 | XMS_ITS | Clinical Summary ---
Author Organization [facility] [employer] Address [address] [place] [address] [place] [address] Care Team Providers Care Metal Mover Name Role Phone Guilherme Alexis MD Primary Care Provider [phone] Source Comments [facility] [employer]non-owned Affiliates and Associated Physician Practices is amultiple site organization consisting of ambulatory clinics and hospital sitesin [place], [place], [place] and [place]. This disclosure is being madepursuant to the Care Everywhere program and may not contain all information available regarding this patient. Last updated 18.[facility] [employer] Allergies Active Allergy Reactions Criticality Noted Date Comments Cefuroxime Itching 10/14/2018 Ibuprofen Other 10/14/2018 Affects her brain function Medications * Be aware that medications may not be up to date on this document. Alwaysverify current medications with the patient. medroxyPROGESTER one (PROVERA) 2.5 MG tablet Take 2.5 mg by mouth once daily Active estradiol (ESTRACE) 0.25 MG TABS Take by mouth Twice Daily, Three Times a Week Active escitalopram (LEXAPRO) 10 MG tablet Take 10 mg by mouth once daily Active losartan-hydroCH LOROthiazide (HYZAAR) 100-12.5 MG tablet Take 1 tablet by mouth once daily Active Cholecalciferol (VITAMIN D-3) 1000 units Take by mouth once daily Active Aspirin (SB LOW DOSE ASA EC) 81 MG Take 81 mg by mouth once daily Active Active Problems No known active problems Social History Tobacco Use Types Packs/Day Years Used Date Smoking Tobacco: Every Day Smokeless Tobacco: Never Comments Unknown Sex and Gender Information Value Date Recorded Sex Assigned at Not on file Legal Sex Female 3:43 PM CDT Gender Identity Not on file Sexual Orientation [...] VACCINE ( - 2023-2 5 season) 2023 DEPRESSION SCREENING 04/23/2024 INFLUENZA VACCINE (Season Ended) 2024 HEPATITIS B VACCINE Aged Out No longe [...] on patient's age to complete this topic Insurance MEDICARE MEDICARE MEDICARE COMMERCIAL GENERIC MEDICARE MEDICARE Care Teams Metal Mover Relationship Specialty Start Date End Date Guilherme Alexis MD [address] [place] [address] PCP - General 03/10/21
--- OUTSIDE RECORDS SUMMARY | 2024-09-20 19:41 | XMS_ITS | Clinical Summary ---
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 Gender Identity Not on file Sexual [...] 9:37 AM CDT Height 157.5 cm (5' 2) 01/17/2023 9:37 AM CDT Body Mass Index [...] (2 of 3) 04/23/2012 02/27/2012 Covid-19 Vaccine (2023-2 5 season) 2023 01/30/2022, 10/29/2021, 03/11/2021, Additional history exists Influenza Vaccine (Season Ended) 2024 01/30/2022, 03/11/2021, 01/30/2020, Additional history exists Insurance MEDICARE COMMERCIAL GENERIC MEDICARE MEDICARE COMMERCIAL GENERIC Care Teams Automobile Assembler Relationship Specialty Start Date End Date Vira Fuentes PA [address] [place] [address] PCP - General Physician Taxation Inspector 09/04/22 Jong Villanueva MD Consulting Physician Cardiology 06/21/21 Christopher Madsen MD [address] [facility] [address] [address] Referring Physician Gastroenterology 10/02/22
--- OUTSIDE RECORDS SUMMARY | 2024-09-20 19:41 | XMS_ITS | Data Portability ---
Author Organization [facility] [place] Address [address] [place] [address] Care Team Providers Care Hand Edger Name Role Phone POLA ARRIAGA Primary Care Provider [phone] Assessment Encounter Date Assessment Date Assessment LastModified by Organization Details LastModified Time 01/21/2020 01/21/2020 26yrs Not SA Pap Hx wnl per pt. [email or web address] Not available 01/21/2020 12:52:11 08/02/2021 08/02/2021 Annual gynecological exam performed. Patient will come back in a year unless there are new symptoms. This patient is a [age] -year-old female with pelvic pain. We have agreed to complete the evaluation with pelvic ultrasound. The patient will return after the pelvic ultrasound to discuss those findings and to develop a treatment plan. A comprehensive history and physical exam was performed today. We spent over 25 minutes [id number]. The patient was given precautions. She will contact clinic if pelvic pain increases in frequency or intensity. Also notify clinic of any new symptoms associated with pelvic pain. She does not appear to have an acute pelvic infection today, but was asked to contact us Immediately with nausea, vomiting, fever, chills. [email or web address] Not available 08/02/2021 11:13:02 Plan of Treatment Reminders Order Date Submit Date Provider Last Modified By Organization Details Last Modified Time Details Appointments None recorded. Lab None recorded. Referral dermatologi st referral - Pruritic rashPlease contact this patient to schedule an appointment or if she has already been seen, please fax over the consults notes. Thank you.Ax Survey Worker d are the patients demographic s and most recent office visit notes.If you have any questions, please contact me at [phone].Thank you,Shi, Referral's 2021 [facility], [address] [place], [address], 15:38:52 Procedures None recorded. Surgeries None recorded. Imaging DEXA, axial skeleton + vertebral fracture assessment 2021 [facility], [address], [place], [address], 2 12:19:15 MAMMO, screening, bilateral [email or web address] [place] [address] Imaging, [address], [place], [address], 0 15:18:45 DEXA, axial skeleton + vertebral fracture assessment 2019 020 [email or web address] [place] [facility], [address], [place], [address], 0 15:18:45 Medication Orders escitalopra m 10 mg tablet 2021 [id number], [address] [facility], [place], [place], [id number], 11:14:01 Lexapro 10 mg tablet [address] [facility], [address] [place], [address], 0 12:51:13 Patient TargetsNo targets recorded. Patient InstructionsNo instructions recorded. Reason for Referral Configuration Consultant Referral for P ruritic rash Pruritic rash Pruritic rashPlease contact this patient to schedule an appointment or if she has already been seen, please fax over the consults notes. Thank you.Attached are the patients demographics and most recent office visit notes.If you have any questions, please contact me at [phone].Thank you,Shi, Referral's Referring Physician: Altagracia Orlando, BENCH EXAMINER, Encounter Date: 08/02/2021 Results Created Date Observation Date Name Description Value Unit Range Abnormal Flag Note LastModifiedBy Organization Detail LastModifiedTime 08/03/19 22 08/02/2021 CULTU RE: URINE result report SEE RESULT S BELOW Test: Cultu re: Urine Speci men Sourc e: Urine - Clean Catch Speci men Type: Urine Speci men Date: 2021 11:06 AM Resul t Date: 2021 9:43 PM Resul t Statu s: Final resul t Abnor mal: No Resul ting Lab: [facility] [address] [facility] [address] Tel: CULTU RE ----- ----- ----- --- No growt h in 1 day (dete ction level of 10,00 0 colon ies / ml.) Not Available [facility] (Lab) [address] [facility], [place], [address], 08/03/2021 22:45:48 08/04/19 22 08/03/2021 urina lysis , dipst ick Leukocytes +3 Not Available Cara huddleston [address], [place], [address], 08/03/2021 17:41:30 08/04/19 22 08/03/2021 urina lysis , dipst ick Nitrite normal Not Available [place] [address], [place], [address], 08/03/2021 17:41:30 08/04/19 22 08/03/2021 urina lysis , dipst ick Urobilinogen normal Not Available Shala berumen [address], [place], [address], 08/03/2021 17:41:30 08/04/19 22 08/03/2021 urina lysis , dipst ick Protein trace Not Available [place] [address], [place], [address], 08/03/2021 17:41:30 08/04/19 22 08/03/2021 urina lysis , dipst ick pH 8 Not Available [place] [address], [place], [address], 08/03/2021 17:41:30 08/04/19 22 08/03/2021 urina lysis , dipst ick Specific [place] 1.010 Not Available [facility] lisandra [address], [place], [address], 08/03/2021 17:41:30 08/04/19 22 08/03/2021 urina lysis , dipst ick Ketone normal Not Available [place] [address], [place], [address], 08/03/2021 17:41:30 08/04/19 22 08/03/2021 urina lysis , dipst ick Bilirubin normal Not Available [facility] [address], [place], [address], 08/03/2021 17:41:30 08/04/19 22 08/03/2021 urina lysis , dipst ick Glucose normal Not Available [place] [address], [place], [address], 08/03/2021 17:41:30 08/04/19 22 08/03/2021 urina lysis , dipst ick Appearance normal Not Available Cara huddleston [address], [place], [address], 08/03/2021 17:41:30 08/04/19 22 08/03/2021 urina lysis , dipst ick Color normal Not Available [place] [address], [place], [address], 08/03/2021 17:41:30 01/12/20 22 01/10/2022 MAMMO , scree frank, bilat eral No observ ation record ed. [email or web address] [place] [facility] [address], [place], [address], 01/13/2022 14:42:53 01/20/20 DEXA, axial skele ton + verte bral fract ure asses sment No observ ation record ed. [email or web address] [place] [facility] [address], [place], [address], 01/19/2022 12:19:20 01/23/20 23 05/12/2022 CT, abdom en, w/wo contr ast No observ ation record ed. [email or web address] [facility] [address] [place], [address], 01/22/2023 16:08:33 Result Notes None recorded. Problems Name Problem SNOMED Code Status Onset Date Resolution Date Notes Provider Name and Address Organization Details Recorded Time Screenin g for malignan t neoplasm of rectum Completed 201308/01/2021 Screening for malignant neoplasms of the rectum;Pr actice ID: 0001 Rachael choudhary [facility] 2 18:30:59 Feces contents abnormal [id number] Completed 201408/01/2021 Nonspecif ic abnormal findings in stool contents; Practice ID: 0001 Rachael choudhary [facility] 2 18:30:59 Adult health examinat ion Completed 201408/01/2021 Routine general medical examinati on at a health care facility; Practice ID: 0001 Rachael choudhary [facility] 2 18:30:59 Speciali zed medical examinat ion Completed 201408/01/2021 Routine gynecolog ical examinati on;Practi ce ID: 0001 Rachael Easton [facility] 2 18:30:59 Screenin g for malignan t neoplasm of cervix Completed 201408/01/2021 Pap Smear;Pra ctice ID: 0001 [facility] 18:30:[address] Concept Completed 201508/01/2021 Encntr for general adult medical exam w/o abnormal findings; Practice ID: 0001 Rachael Easton [facility] 2 18:30:[address] Concept Completed 201508/01/2021 Encntr for executive assistant to general counsel exam (general) (routine) w/o abn findings; Practice ID: 0001 Rachael Easton [facility] 2 18:30:59 Menopaus e present [id number] Completed 201708/01/2021 Menopausa l and female climacter ic states;Pr actice ID: 0001 Rachael Easton [facility] 2 18:30:59 Pelvic and perineal pain [id number] Completed 201708/01/2021 Pelvic and perineal pain;Prac savanah ID: 0001 Rachael Easton [facility] 2 18:30:59 Emotiona l state finding Completed 201708/01/2021 Other specified anxiety disorders ;Practice ID: 0001 Rachael Easton [facility] 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 2 18:30:59 Problem Notes None recorded. Procedures Surgical History Date Name Laterality Status Provider Name and Address Organization Details Recorded Time 08/03/19 22 Date of Last Pap Smear completed [facility] 08/02/2021 11:14:22 04/23/19 15 procedure on shoulder completed [facility] 08/03/2021 17:37:00 04/23/19 08 Hysteroscopy completed [facility] 08/03/2021 17:36:42 Imaging Results None recorded. Procedure Notes None recorded. Medical Equipment None Reported. Allergies Allergen ID Allergen Name Allergen Category Reaction Reaction Severity Criticality Documentation Date Start Date Code Code System Note Provider Name and Address Organization Details Recorded Time 2209 cefuroxim e Not available Not available Not available Not available 01/21/2020 2194 RxNorm [facility] 12:11:53 2211 codeine medicatio n Not available Not available Not available 01/21/2020 2670 RxNorm [facility] 0 12:11:58 2212 ibuprofen medicatio n Not available Not available Not available 01/21/2020 5640 RxNorm [facility] 12:12:04 Medications Name Sig Start Date Stop Date Status Note LastModified by Organization Details LastModified Time nystatin 100,000 unit/gram topical ointment active Not Available Not Available Not Available valacyclo vir 1 gram tablet TAKE 1 TABLET BY MOUTH THREE TIMES DAILY FOR 7 DAYS active Not Available Not Available No t Available medroxypr ogesteron e 2.5 mg tablet take 1 Tablet by oral route every day 2018 active Prescrib ed Elsewher e: No Locat ion: [facility] odify By: lbillhar tz Encou nter DateTime : 07/25/19 19 11:30:00 AM Not Available Not Available Not Available Vivelle 0.05 mg/24 hr transderm al patch apply 1 patch by transder mal route 2 times every week 03/20 completed Prescrib ed Elsewher e: Yes Loca tion: Jae mcelroy [facility] odify By: alex Jacobs nter DateTime : 03/18/20 11 05:31:53 PM Not Available Not Available Not Available diphenoxy late-atro pine 2.5 mg-0.025 mg tablet TAKE 1 TABLET BY MOUTH THREE TIMES DAILY active Not Available Not Available No t Available amlodipin e 5 mg tablet TAKE 1 TABLET BY MOUTH DAILY active Not Available Not Available No t Available omeprazol e 40 mg capsule,d elayed release 01/20 completed Not Available Not Available Not Available vancomyci n 125 mg capsule active Not Available Not Available Not Available flaxseed oil 1,000 mg capsule 06/16 completed Prescrib ed Elsewher e: Yes Loca tion: [facility] odify By: nabila alvaradounter DateTime : 05/12/19 15 02:30:00 PM Not Available Not Available Not Available estradiol 1 mg tablet take 1 tablet by oral route every day 11/25 completed Prescrib ed Elsewher e: No Locat ion: [facility] odify By: emerson hull DateTime : 07/25/19 19 11:30:00 AM Not Available Not Available Not Available Zoloft 50 mg tablet take 1 tablet (50MG) by oral route every day 03/27 completed Prescrib ed Elsewher e: No Locat ion: [facility] odify By: nathan hull DateTime : 03/20/20 11 10:00:00 AM Not Available Not Available Not Available hyoscyami ne ER 0.375 mg tablet,ex tended release,1 2 hr TAKE 1 TABLET BY MOUTH EVERY 12 HOURS active Not Available Not Available No t Available dicyclomi ne 20 mg tablet TAKE 1 TABLET BY MOUTH FOUR TIMES DAILY NEEDED FOR ABDOMINA L PAIN active Not Available Not Available No t Available Prednison e Intensol 5 mg/mL oral concentra te take 1 millilit er by oral route 4 times every day 03/20 completed Prescrib ed Elsewher e: Yes Loca tion: Jae mcelroy [facility] odify By: smcfrancine Wilkste r DateTime : 03/18/20 11 05:31:53 PM Not Available Not Available Not Available CellCept 250 mg capsule take 6 capsule by oral route 2 times every day 03/20 completed Prescrib ed Elsewher e: Yes Loca tion: Jae mcelroy [facility] odify By: smcfrancine Wilkste r DateTime : 03/18/20 11 05:31:53 PM Not Available Not Available Not Available estradiol 0.5 mg tablet take 1 tablet by oral route every day 11/25 completed Prescrib ed Elsewher e: No Locat ion: Jae mcelroy [facility] odify By: emerson hull DateTime : 11/26/19 19 01:54:16 PM Not Available Not Available Not Available metoprolo l succinate ER 25 mg tablet,ex tended release 24 hr TAKE 1 TABLET BY MOUTH DAILY active Not Available Not Available No t Available Paxil 10 mg tablet take 1 tablet by oral route every day 11/25 completed Prescrib ed Elsewher e: No Locat ion: Jae mcelroy [facility] odify By: emerson hull DateTime : 07/25/19 19 11:30:00 AM Not Available Not Available Not Available losartan 100 mg tablet TAKE 1 TABLET BY MOUTH DAILY active Not Available Not Available No t Available colestipo l 1 gram tablet TAKE 1 TABLET BY MOUTH TWICE DAILY FOR ONE MONTH, THEN 1-2 TIMES DAILY NEEDED. OTHER MEDICATI ONS SHOULD BE ADMINIST ERED AT LEAST 1 HOUR BEFORE OR 4 HOURS AFTER COLESTIP OL active Not Available Not Available No t Available dicyclomi ne 10 mg capsule TAKE 2 CAPSULES BY MOUTH THREE TIMES DAILY NEEDED FOR ABDOMINA L DISCOMFO RT active Not Available Not Available No t Available Bactrim 400 mg-80 mg tablet take 2 tablet by oral route every 12 hours 07/24 completed Prescrib ed Elsewher e: Yes Loca tion: Jae mcelroy [facility] odify By: ninoska juarez DateTime : 06/16/19 16 02:00:00 PM Not Available Not Available Not Available escitalop hali 10 mg tablet TAKE 1 TABLET BY MOUTH EVERY DAY active Not Available Not Available No t Available escitalop hali 20 mg tablet TAKE 1 TABLET BY MOUTH DAILY active Not Available Not Available No t Available Calcio Yayo 500 mg tablet active Prescrib ed Elsewher e: Yes Loca tion: Jae mcelroy [facility] odify By: nathan hull DateTime : 05/12/19 15 02:30:00 PM Not Available Not Available Not Available chlorhexi dine gluconate 0.12 % mouthwash SWISH 15ML BY MOUTH FOR 30 SECONDS TWO TO THREE TIMES DAILY active Not Available Not Available No t Available losartan 100 mg-hydroc hlorothia zide 12.5 mg tablet TAKE 1 TABLET BY MOUTH DAILY active Not Available Not Available No t Available Lexapro active Not Available Not Avail able Not Available Vitamin D3 10 mcg (400 unit) capsule active Prescrib ed Elsewher e: Yes Loca tion: Jae mcelroy [facility] odify By: nathan hull DateTime : 05/12/19 15 02:30:00 PM Not Available Not Available Not Available B Complex 1.7 mg-20 mg-2 mg-1.2 mg/mL sublingua l liquid active Prescrib ed Elsewher e: Yes [facility]: nathan hull DateTime : 05/12/19 15 02:30:00 PM Not Available Not Available Not Available Cholestyr amine Light 4 gram oral powder active Not Available Not Available Not Available GaviLyte- G 236 gram-22.7 4 gram-6.74 gram-5.86 gram oral solution 01/20 completed Not Available Not Available Not Available Fish Oil 100 mg-160 mg-1,000 mg capsule 07/24 completed Prescrib ed Elsewher e: Yes Loca tion: James navi [facility] odify By: ninoska Mcelroy ncounter DateTime : 05/12/19 15 02:30:00 PM Not Available Not Available Not Available Women's 50+ Daily Formula (with ginkgo) 400 mcg-120 mg tablet active Prescrib ed Elsewher e: Yes Loca tion: Jae mcelroy [facility] odify By: nathan hull DateTime : 05/12/19 15 02:30:00 PM Not Available Not Available Not Available Vitals Date Recorded Systolic blood pressure Diastolic blood pressure Provider Name and Address Organization Details Last Updated DateTime 08/02/2021 132 mm[Hg] 82 mm[Hg] Altagracia Orlando, [facility]- [address], [place], [address], [facility] 08/02/2021 11:27:31 Date Recorded Body height Body mass index (BMI) Body weight Provider Name and Address Organization Details Last Updated DateTime 08/02/2021 152.4 cm 28.7 kg/m2 47559.08 g Fanny Grewal [facility] 08/02/2021 11:13:45 Date Recorded Body height Body mass index (BMI) Body weight Systolic blood pressure Diastolic blood pressure Provider Name and Address Organization Details Last Updated DateTime 01/21/2020 152.4 cm 29.7 kg/m2 68560.04 g 140 mm[Hg] 82 mm[Hg] Florencia Rockwell [facility] 0 12:23:53 Date Recorded Body height Body mass index (BMI) Body weight Systolic blood pressure Diastolic blood pressure Provider Name and Address Organization Details Last Updated DateTime 01/29/2023 152.4 cm 28.7 kg/m2 50590.08 g 115 mm[Hg] 75 mm[Hg] Betty Myra [facility] 3 14:45:14 Social History Question Answer Notes LastModified by Organizat ion Details LastModified Time Tobacco Smoking Status Never Smoker Not Available [facility] 02/24/2020 03:28:11 Are You Blind Or Do You Have Difficulty Seeing? No [email or web address] Information n ot available 08/03/2021 What Is Your Level Of Caffeine Consumption? Occasional [email or web address] Information not available 08/03/2021 In The 14 Days Before Symptom Onset, Have You Had Close Contact With A Laboratory-confirm ed COVID-19 While That Case Was Ill? No [email or web address] Information n ot available 08/03/2021 In The 14 Days Before Symptom Onset, Have You Had Close Contact With A Person Who Is Under Investigation For COVID-19 While That Person Was Ill? No [email or web address] Information not available 08/03/2021 Have You Been To An Area Known To Be High Risk For COVID-19? No Information not available 08/03/2021 Are You Deaf Or Do You Have Serious Difficulty Hearing? No [email or web address] Information not available 08/03/2021 What Type Of Diet Are You Following? REGULAR [email or web address] Information n ot available 08/03/2021 Have You Ever Been Counseled For Unhealthy Alcohol Use? No [email or web address] Information not available 08/03/2021 Do You Use Your Seat Belt Or Car Seat Routinely? Yes [email or web address] Information not available 08/03/2021 Do You Have Smoke And Carbon Monoxide Detectors In Your Home? Yes [email or web address] Information not available 08/03/2021 Do You Use Sunscreen Routinely? Yes [email or web address] Information not available 08/03/2021 Has Tobacco Cessation Counseling Been Provided? No [email or web address] Information not available 08/03/2021 Do You Have Difficulty Walking Or Climbing Stairs? No [email or web address] Information not available 08/03/2021 Sex: Unknown Functional Status Question Answer Note LastModified by Organizat ion Details LastModified Time Do you use any illicit or recreational drugs? No Information not available 08/03/2021 Do you or have you ever used any other forms of tobacco or nicotine? No [email or web address] Information not available 08/03/2021 What is your level of alcohol consumption? Occasional [email or web address] Information not available 08/03/2021 Are you able to walk? YESWOREST Information not available 08/03/2021 Are you able to care for yourself? Yes [email or web address] Information n ot available 08/03/2021 Do you have difficulty dressing or bathing? No [email or web address] Information not available 08/03/2021 What is your exercise level? Occasional [email or web address] Information not available 08/03/2021 Mental Status Question Answer Note LastModified by Organization D etails LastModified Time Do you feel stressed (tense, restless, nervous, or anxious, or unable to sleep at night)? [id number] [email or web address] Information not available 08/03/2021 Family History Relationship Description Onset Age of this Age Resolved Age Notes LastModified by Organization Details LastModified Time Mother Hypertensive disorder [email or web address] Not available 2019 12:12:52 Mother Acute stroke [email or web address] Not availa ble 01/21/2020 12:12:57 Medical History Condition Response Other Y Blood Transfusion N Dermatologic Disorders N Gestational Diabetes N Anxiety Disorder Y Autoimmune disease N Arthritis N Polyps N Infertility N Acid Reflux (GERD) N Cancer N Stroke N Neurologic/Epilepsy Y Fibromyalgia N Headaches N Kidney Disease N Heart Problems N Kidney or Bladder Problems Y Eating Disorder N Art (IVF or FET) N Hepatitis/Liver Disease N No Past Medical History N Asthma N Trauma/Violence N Thrombophilias N Allergies (Food, seasonal, environmental ) N Breast Cancer N Drug/Latex Allergies/Reactions Y Lung Disease N Defects or Inherited Disease N Breast Problem N Hematologic disorders N Anesthesia Complications N History of STI Y Deep Vein Thrombosis N Polycystic ovary syndrome N History of abnormal pap N Endometriosis N High Cholesterol N Thyroid Problems N GI Problems Y Anemia N Psychiatric Illness N Ovarian Cancer N Diabetes N Pulmonary (TB, Asthma) N Eczema N Abuse/Domestic Violence N Depression/ depression Y Heart Disease N Pre-Eclampsia N Hypertension Y Osteoporosis Y Gynecological History Statement/Question Response Abnormal Pap N Date of Last Mammogram Date of LMP 04/23/2008 Date of DEXA bone scan 09/27/2017 Date of Last Pap Smear 08/02/2021 Current Control Method Menopause LMP Approximate Obstetrics History GPAL:G 3 P 1 1 1 2 Type Value Full Term 1 Spontaneous 1 Premature 1 Living 2 Total 3 Past Encounters Encounter ID Performer Location Encounter Start Date Encounter Closed Date Diagnosis/Indication Diagnosis SNOMED-CT Code Diagnosis ICD10 Code Diagnosis Note [id number] Altagracia Orlando [facility] [address],[facility] [place] [address] 01/21/2020 12:09:07 01/21/2020 12:58:06 Menopausal syndrome 388989153 N95.1 Happy on this medication . RF sent x 1yr supply Time spent in visit is a total of 15mins with at least 50% of visit consisting of counseling and review of plan of care. Screening mammography 24 344756 Z12.31 Screening for osteoporosis 002430494 Z13.820 [id number] [facility]racia Orlando [facility] [address] [address] 08/02/2021 10:30:34 08/02/2021 11:26:53 Gynecologic examination 08827588 Z01.419 Take Calcium with Vitamin D 12-1500mg daily. Do monthly self breast exams. It is advised to get annual flu shot in the fall and she could obtain at [facility] or [facility] care clinic. If you haven't received the Tdap vaccine in the last 10 years you should obtain one as well. Have mammogram yearly, bone density every 2-3 years and colonoscop y every 5-10 years depending on findings and history. Engage in daily exercise of low impact aerobic exercise 45-60 minutes 4-5 times weekly. Avoid tobacco and illicit drugs as well as using moderation with alcohol intake less than 1-2 8 oz beverages daily. This lifestyle behavior pattern will lead to less health conditions and longer life span. If BMI greater than 25 weight watchers or dietary consult advised. Questions have been answered. Patient appears to understand instructio ns, but if you have any further questions call or respond to this email Pap/hpvUSP STF recommends against screening for cervical cancer in women older than 65yo, those who've had a hysterecto my for non-cancer indication s, & who have had adequate prior screening & are not otherwise at high risk for cervical cancer.STD Screen declined, Not SAGenetic Screen discussedC olon Screen UTDDexa Screen orderdRout ine Labs UTD PCPMammo ordered Postmenopausal state [phone] 91011 Z78.0 Menopausal syndrome 1237 37659 N95.1 Happy on this medication . RF sent x 1yr supply Time spent in visit is a total of 15mins with at least 50% of visit consisting of counseling and review of plan of care. Pruritic rash 11733692 L 28.2 Red slightly raised spots that have some itch to them present for almost 6mos.Not multiplyin g but not resolving. She uses anti-itch cream which helps but requests a referral for further evaluation . [id number] Zev Stoddard MD [place] [address] [address] 01/29/2023 14:26:00 01/30/2023 08:57:23 Pain in pelvis [id number] R10.2 This patient is a 77-year-ol d female presents for pelvic pain. She was seen by Gastroente rology. CT of her abdomen and pelvis was performed. There was some dilated blood vessels around the uterus and ovaries. She was asked to consider pelvic congestion syndrome and was sent us. We talked about her symptoms. She has symptoms consistent with pelvic congestion syndrome. She also has a intestinal disorder and had a long bout with E coli. That is when her pain began. Is been present for years. We talked about the diagnosis of pelvic congestion syndrome. We talked about imaging. We had she was examined and she was tender in the adnexa bilaterall y. The uterus was not tender. We are going to consider her CT venography of the pelvis. Also a an interventi onal radiologis t to perform diagnosis of vascular dilation of the pelvis and possible treatment. She will contact us when she wants to move forward in this. We spent 40 minutes face-to-fa ce. We had a lengthy visit talked about a lot of detail on pelvic congestion syndrome. Health Concerns Section Related Observation LastModified by Organization Detai ls LastModified Time None Recorded Concern Status LastModified by Organization Details LastModified Time None Recorded Advance Directives Directive None Recorded Payers Encounter Date Sequence Insurance Name Policy Number Policy Tripp Covered Member ID Tripp Member ID Guarantor Name 01/21/2020 2 [employer] (MEDICARE SUPPLEMENT) Daja Aemisegger [id number] 01/21/2020 1 [place] Daja R Aemisegger [id number] 08/02/2021 2 [employer] (MEDICARE SUPPLEMENT) Daja Aemisegger [id number] 08/02/2021 1 [place] Daja R Aemisegger [id number] 01/29/2023 2 [employer] (MEDICARE SUPPLEMENT) Daja Aemisegger [id number] 01/29/2023 1 [place] Daja R Aemisegger [id number] Notes Date Note Type Note Provider Name and Address Organization Details Recorded Time 01/21/2020 text/html Patient is a 74y o white female here today for medication check of Lexapro & updated mammo/dexa orders. She is doing well on this medication & would like to continue. Still has a few hot flashes when tries to d/c med. Happy staying on it. Also feels it helps her mood. No complaints or issues this year. Altagracia Orlando [facility] [address], [place], [address], [facility] 01/21/2020 12:52:31 08/02/2021 text/html Annual Crime Lab Technician Post-MenopausalRepor ramirez bypatient.Menopausal Symptoms:no menopausal symptoms; normal vaginal lubrication Vaginal Bleeding:history of menopause having occurred; no history of post menopausal bleeding Urinary Symptoms:no hematuria; no incontinence; no nocturia; no urinary frequency Vulva:no genital lesion; no vulvar atrophy Vagina:normal vaginal discharge; no vaginal atrophy Breast:no breast lump; no nipple discharge; no breast pain Sexual Complaints:no sexual complaints Psychological Symptoms:no depression; no anxiety Preventive Measures:encourage regular mammograms starting age 40; encourage self breast examination; encourage regular exercise; encourage no tobacco use; mammogram performed within the past year; needs to schedule mammogram; history of recent colonoscopy; needs to schedule bone density Altagracia Orlando [facility] [address], [place], [address], [facility] 08/02/2021 11:27:43 01/29/2023 text/html This patient is a 77-year-old female presents for pelvic pain. She was seen by Gastroenterology. CT of her abdomen and pelvis was performed. There was some dilated blood vessels around the uterus and ovaries. She was asked to consider pelvic congestion syndrome and was sent us. We talked about her symptoms. She has symptoms consistent with pelvic congestion syndrome. She also has a intestinal disorder and had a long bout with E coli. That is when her pain began. Is been present for years. We talked about the diagnosis of pelvic congestion syndrome. We talked about imaging. We had she was examined and she was tender in the adnexa bilaterally. The uterus was not tender. We are going to consider her CT venography of the pelvis. Also a an interventional radiologist to perform diagnosis of vascular dilation of the pelvis and possible treatment. She will contact us when she wants to move forward in this. We spent 40 minutes [id number]. We had a lengthy visit talked about a lot of detail on pelvic congestion syndrome. More than 50% was counseling Zev Stoddard MD [address], [place], [address], [facility] 01/29/2023 21:36:15 OBGyn Episode Ob Episode Information Episode Created Date Number of Fetuses Patient Bloodtype Patient rh Status Prepregnancy Weight lbs Domestic Partner Domestic Partner Phone Father Name Dietary Server Status 01/21/20 20 1 CLOSED Fetus Data First Name Last Name Admitted to NICU Weight (g) Sex Living Outcome Pediatric Complications Fetus ID Race Codes Race Delivery Type 3175.14 4 Full Term 4906 Vaginal Delivery Johnathon Calculation Initial Johnathon Date Initial Exam Date Initial Exam Provider Initial Ultrasound Date Last Menstrual Period Date Ultra Sound Weeks Gestation 0 Eighteen To Twenty Week Johnathon Update Ultra Sound Date Fundal Height At Umbil Quickening Date Ultra Sound Latest Weeks Gestation Final Johnathon Confirmed By Final Johnathon Confirmed Date Final Johnathon Date Ultra Sound Latest Days Gestation 0 0 Menstrual History Last Menstrual Date Menses Monthly On Bcp Conception Prior Menses Frequency Hcg Plus Date Menarche Onset Age Delivery Information Delivery Date Delivery Type Labor Anesthesia Weeks Gestation Incision Type Labor Labor Length Hrs Delivered By Post Complications Tubal Sterilization Discharge Date Comments 7 37 Discharge Information Feeding Method Contraceptive Method Maternal HG B and HCT Levels Ob Episode Information Episode Created Date Number of Fetuses Patient Bloodtype Patient rh Status Prepregnancy Weight lbs Domestic Partner Domestic Partner Phone Father Name Dietary Server Status 01/21/20 20 1 CLOSED Fetus Data First Name Last Name Admitted to NICU Weight (g) Sex Living Outcome Pediatric Complications Fetus ID Race Codes Race Delivery Type 2608.15 4 M Prematur e 4907 Vaginal Delivery Johnathon Calculation Initial Johnathon Date Initial Exam Date Initial Exam Provider Initial Ultrasound Date Last Menstrual Period Date Ultra Sound Weeks Gestation 0 Eighteen To Twenty Week Johnathon Update Ultra Sound Date Fundal Height At Umbil Quickening Date Ultra Sound Latest Weeks Gestation Final Johnathon Confirmed By Final Johnathon Confirmed Date Final Johnathon Date Ultra Sound Latest Days Gestation 0 0 Menstrual History Last Menstrual Date Menses Monthly On Bcp Conception Prior Menses Frequency Hcg Plus Date Menarche Onset Age Delivery Information Delivery Date Delivery Type Labor Anesthesia Weeks Gestation Incision Type Labor Labor Length Hrs Delivered By Post Complications Tubal Sterilization Discharge Date Comments 3 36 Discharge Information Feeding Method Contraceptive Method Maternal HG B and HCT Levels Ob Episode Information Episode Created Date Number of Fetuses Patient Bloodtype Patient rh Status Prepregnancy Weight lbs Domestic Partner Domestic Partner Phone Father Name Dietary Server Status 01/21/20 20 1 CLOSED Fetus Data First Name Last Name Admitted to NICU Weight (g) Sex Living Outcome Pediatric Complications Fetus ID Race Codes Race Delivery Type , Spontane ous 4908 Johnathon Calculation Initial Johnathon Date Initial Exam Date Initial Exam Provider Initial Ultrasound Date Last Menstrual Period Date Ultra Sound Weeks Gestation 0 Eighteen To Twenty Week Johnathon Update Ultra Sound Date Fundal Height At Umbil Quickening Date Ultra Sound Latest Weeks Gestation Final Johnathon Confirmed By Final Johnathon Confirmed Date Final Johnathon Date Ultra Sound Latest Days Gestation 0 0 Menstrual History Last Menstrual Date Menses Monthly On Bcp Conception Prior Menses Frequency Hcg Plus Date Menarche Onset Age Delivery Information Delivery Date Delivery Type Labor Anesthesia Weeks Gestation Incision Type Labor Labor Length Hrs Delivered By Post Complications Tubal Sterilization Discharge Date Comments 6 Discharge Information Feeding Method Contraceptive Method Maternal HG B and HCT Levels
--- OUTSIDE RECORDS SUMMARY | 2024-09-20 19:41 | XMS_ITS | Referral Summary ---
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
[2024-09-20 19:54] VITALS: BP 139/53; PULSE 61; RESP 18; TEMP 36.4; O2SAT 97
--- OUTSIDE RECORDS SUMMARY | 2024-09-20 22:59 | XMS_ITS | Clinical Summary ---
Author Organization [facility] [employer] Address [address] [place] [address] [place] [address] Care Team Providers Care Employee Relations Assistant Name Role Phone Guilherme Alexis MD Primary Care Provider [phone] Source Comments [facility] [employer],non-owned Affiliates and Associated Physician Practices is amultiple site organization consisting of ambulatory clinics and hospital sitesin [place], [place], [place] and [place]. This disclosure is being madepursuant to the Care Everywhere program and may not contain all information available regarding this patient. Last updated 18.[facility] [employer] Allergies Active Allergy Reactions Criticality Noted Date [...] MEDICARE COMMERCIAL GENERIC MEDICARE MEDICARE Care Teams Employee Relations Assistant Relationship Specialty Start Date End Date Guilherme Alexis MD [address] [place] [address] PCP - General 03/10/21
--- NOTE | 2024-09-20 23:18 | ECG_ITS ---
Test Date: 2024-09-20 23:38:28 Measurements Intervals [place] Rate: 53 P: 74 [place]: 220 QRS: -28 QRSD: 146 T: 268 QT: 466 QTc: 439 Interpretive Statements SINUS BRADYCARDIA WITH FIRST DEGREE AV BLOCK LEFT BUNDLE BRANCH BLOCK BASELINE ARTIFACT- I, II, III, AVR, AVL, AVF, V2 ABNORMAL ECG No previous ECG available for comparison Electronically Signed On 09-21-2024 07:09:41 CDT by Richard Fernandes D.O.
[2024-09-20 23:33] VITALS: BP 174/76; PULSE 52; RESP 14; O2SAT 98
[2024-09-20 23:41] LABS: Basophils Percent Auto 0.4 % (0.2-1.2); Eosinophils Absolute Auto 0.1 K/mm3 (0-0.3); Eosinophils Percent Auto 1.3 % (0-4.4); Hematocrit 34.4 % (37.0-47.0); Hemoglobin 11.2 g/dL (12.0-15.0); Immature Granulocyte Absolute 0.02 K/mm3 (0.00-0.031); Immature Granulocyte Percent A 0.2 % (0-0.5); Lymphocytes Absolute Auto 3.07 K/mm3 (0.9-3.2); Lymphocytes Percent Auto 28.1 % (18.3-44.2); Mean Corpuscular HGB Conc 32.6 g/dl (32-36); Mean Corpuscular Hemoglobin 28.9 pg (26-34); Mean Corpuscular Volume 88.9 fl (80-100); Mean Platelet Volume 10.1 fl (7.4-10.4); Monocytes Percent Auto 8.9 % (2.6-8.5); Neutrophils Absolute Auto 6.7 K/mm3 (1.3-6.7); Neutrophils Percent Auto 61.1 % (45.5-73.1); Platelet Count Result 286 k/mm3 (150-375); Red Blood Count 3.87 M/mm3 (4.2-5.4); Red Cell Distribution Width 13.3 % (11.5-14.5); White Blood Count 10.9 K/mm3 (4.5-10.0)
--- NOTE | 2024-09-20 23:43 | PC.NURSE ---
Pt advised that straight cath will be needed if she is unable to provide urine sample. Pt refused.
[2024-09-20 23:51] LABS: Prothrombin Time 13.2 Seconds (11.1-14.7)
[2024-09-20 23:52] LABS: Alanine Aminotransferase 20 U/L (6-35); Albumin Level 3.9 g/dL (3.5-5.1); Alkaline Phosphatase 119 U/L (38-126); Anion Gap 6 mmol/L (4-12); Aspartate Amino Transferase 27 U/L (14-36); Bilirubin,Total 0.4 mg/dL (0.2-1.3); Blood Urea Nitrogen 10 mg/dL (7-17); Calcium 8.9 mg/dL (8.4-10.2); Carbon Dioxide 29 mmol/L (22-30); Chloride 97 mmol/L (98-107); Estimated CRCL calculation 47 ml/min; Estimated Glomerular Filt Rate > 60; Glucose 99 mg/dL (65-110); Lipase 33 U/L (23-300); Partial Thromboplastin Time 22.6 Seconds (22.3-36.8); Potassium 3.7 mmol/L (3.4-5.0); Sodium 132 mmol/L (137-145)
[2024-09-21 00:03] LABS: Troponin I < 0.012 ng/mL (0.000-0.034)
--- NOTE | 2024-09-21 00:14 | ED_ITS ---
HPI - General Adult General Chief complaint: Unspecified <Candelaria Horvath PA-C - Last Filed: 09/21/24 03:02> Stated complaint: High BP, dizzy, N/V, cold sweats, fatigue <Candelaria Horvath PA-C - Last Filed: 09/21/24 03:02> Time Seen by Provider: 09/20/24 22:50 <Candelaria Horvath PA-C - Last Filed: 09/21/24 03:02> History of Present Illness HPI narrative: 79-year-old female with history of hypertension, IBS, chronic left lower quadrant abdominal pain presents to the emergency department with daughter at bedside for an episode of lightheadedness, nausea vomiting that occurred at noon yesterday. Patient states she was walking in from outside when she began to feel lightheaded. She went to the bathroom and had a sudden episode of nausea and 3 episodes of emesis and diaphoresis. States her symptoms have since resolved but she has had intermittent ?cold sweats?. She denies chest pain, shortness of breath, syncope, fevers, dysuria or hematuria, diarrhea, lower extremity edema, melena or hematochezia. She is endorsing some lower abdominal cramping which was present earlier today, went away after she took dicyclomine and then returned. She states she does have chronic lower abdominal cramping has been told she has IBS. She also endorses a history of diverticulitis. On my evaluation she states she feels ?great?. She denies any current dizziness or lightheadedness, chest pain or shortness of breath. She also notes tshe took her metoprolol, losartan and amlodipine in the morning with water and had not had anything to eat prior to her episode of dizziness. <Candelaria Horvath PA-C - Last Filed: 09/21/24 03:02> Related Data Home medications: Home Medications ?Medication ?Instructions ?Recorded ?Confirmed ?Last Taken ?Type hydrocortisone 2.5 % topical cream applic topical 01/11/24 07/21/24 Unknown History ketoconazole 2 % shampoo topical 2XW 01/11/24 07/21/24 Unknown History ketoconazole 2 % topical cream applic topical 01/11/24 07/21/24 Unknown History <Candelaria Horvath PA-C - Last Filed: 09/21/24 03:02> Allergies/adverse reactions: Allergies Allergy/AdvReac Type Severity Reaction Status Date / Time cephalothin (From Seffin) Allergy Mild Hypotension Verified 09/20/24 20:08 codeine Allergy Mild HYPERACTIVE Verified 09/20/24 20:08 morphine Allergy Unknown Nausea and Verified 09/20/24 20:08 Vomiting ibuprofen AdvReac Mild Confusion Verified 09/20/24 20:08 <Candelaria Horvath PA-C - Last Filed: 09/21/24 03:02> Review of Systems 2 Review of Systems: All systems reviewed & are unremarkable except as noted in HPI and below <Candelaria Horvath PA-C - Last Filed: 09/21/24 03:02> [facility] Past Medical History Medical History: Medical History Irritable bowel syndrome with diarrhea BMI 28.0-28.9,adult BMI 27.0-27.9,adult Abdominal pain Cigarette smoker one half pack a day or less BMI 26.0-26.9,adult Normal colonoscopy Hypertension <Candelaria Horvath PA-C - Last Filed: 09/21/24 03:02> Surgical History Surgical History: Surgical History History of tonsillectomy History of shoulder surgery History of bladder surgery <Candelaria Horvath PA-C - Last Filed: 09/21/24 03:02> Family History Family History: Family History Mother Hypertension Cerebrovascular accident Family history of coronary artery disease Father Tuberculosis Sibling Brain aneurysm <Candelaria Horvath PA-C - Last Filed: 09/21/24 03:02> Social History Social History: Social History Social History: yes Smoking packs per day: 0.50 Smoking cigarettes per day: 10.0 Years smoked: 50 Smoking pack-years: 25.00 Smoking status: Former smoker Tobacco type: cigarettes Second hand tobacco smoke exposure: No Smoking end date: 08/24/22 Alcohol intake: current Drinks per week: 2 Substance use: never Substance use type: does not use Living arrangements: alone 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 Gender identity (if verbalized by the patient): Female Spiritual care concerns: No <Candelaria Horvath PA-C - Last Filed: 09/21/24 03:02> Exam 2 Narrative: GENERAL: Well-appearing, well-nourished, and in no acute distress. HEAD: Normocephalic, atraumatic. EYES: EOMI. ENT: Nares clear, no rhinorrhea or epistaxis. Mucous membranes moist. NECK: Supple. CHEST: Clear to auscultation. No respiratory distress. HEART: Regular rate and rhythm. No murmur heard. Normal peripheral pulses. ABDOMEN: Normoactive bowel sounds. Abdomen soft with mild tenderness in the left lower quadrant. No rebound or rigidity. No CVA tenderness. EXTREMITIES: Normal range of motion. No edema. SKIN: Warm, dry, no rash. NEURO: No focal deficits. Alert and oriented x3 <Candelaria Horvath PA-C - Last Filed: 09/21/24 03:02> Course WRIST LINER/PA Physician Supervision This visit was performed by both a physician and an APC. I performed all aspects of the MDM as documented. <Bryant Abdi MD - Last Filed: 09/21/24 07:35> Vital Signs Vital signs: Vital Signs Temperature 36.4 C 09/20/24 19:54 Pulse Rate 61 09/20/24 19:54 Respiratory Rate 18 09/20/24 19:54 Blood Pressure 139/53 L 09/20/24 19:54 Pulse Oximetry 97 09/20/24 19:54 Oxygen Delivery Room Air 09/20/24 19:54 Temperature 36.4 C 09/20/24 19:54 Pulse Rate 60 09/21/24 01:44 Respiratory Rate 16 09/21/24 01:44 Blood Pressure 149/57 H 09/21/24 01:44 Pulse Oximetry 95 09/21/24 01:44 Oxygen Delivery Room Air 09/20/24 19:54 <Candelaria Horvath PA-C - Last Filed: 09/21/24 03:02> Vital Signs Temperature 36.4 C 09/20/24 19:54 Pulse Rate 61 09/20/24 19:54 Respiratory Rate 18 09/20/24 19:54 Blood Pressure 139/53 L 09/20/24 19:54 Pulse Oximetry 97 09/20/24 19:54 Oxygen Delivery Room Air 09/20/24 19:54 Temperature 36.4 C 09/20/24 19:54 Pulse Rate 60 09/21/24 01:44 Respiratory Rate 16 09/21/24 01:44 Blood Pressure 149/57 H 09/21/24 01:44 Pulse Oximetry 95 09/21/24 01:44 Oxygen Delivery Room Air 09/20/24 19:54 <Bryant Abdi MD - Last Filed: 09/21/24 07:35> Medical Decision Making MDM Narrative Medical decision making narrative: 79-year-old female history of IBS, diverticulitis, hyperlipidemia, hypertension presents to the emergency department for episode of lightheadedness, nausea, vomiting and diaphoresis that occurred around noon today. Symptoms have since resolved but she is endorsing intermittent ?cold sweats? since. No chest pain or shortness of breath. Vitals are stable. Patient is afebrile nontoxic appearing resting comfortably in exam bed. On my evaluation she is having chronic lower abdominal cramping and tenderness to the left lower quadrant. She otherwise is asymptomatic and states she feels ?great?. Will obtain presyncope workup including lab work, EKG, chest x-ray, troponin. Will also obtain CT abdomen pelvis given left lower quadrant abdominal tenderness to evaluate for diverticulitis as possible source, however her lower abdominal pain/cramping seems to be consistent with her chronic IBS. Lab work with mild leukocytosis of 10.9, anemia of 11.2 with normal MCV and MCH. She denies melena or hematochezia. Chemistries are unremarkable. Lipase within normal limits. UA with trace leuk esterase, no white blood cells or nitrates. Patient denies urinary symptoms. EKG shows sinus bradycardia with a rate of 53 ppm and first-degree AV block with UT interval of 220, normal QRS duration, normal QTC, no acute ischemic changes. Patient is on metoprolol and does have a history of bradycardia in the 50s. She is not currently having any symptoms consistent with symptomatic bradycardia. Chest x-ray shows no acute findings. There is a possible left lateral lung nodule measuring 0.7 cm with recommendations for outpatient CT. CT abdomen pelvis shows no acute findings, there is evidence of a distended bladder. Postvoid bladder scan is 166. Patient family at bedside updated on results. She is ambulatory in the ED and continues to be asymptomatic. I suspect her episode of lightheadedness may have been due to not having eaten anything this morning vs taking all of her antihypertensives at the same time vs vasovagal reaction caused by her IBS. She remains very well appearing in the ED and asymptomatic. Feel she is safe to be discharged home and advised close PCP follow-up. I discussed strict ED return precautions. She in her daughter are agreeable with the plan verbalized understanding. Discharged in stable condition. <Candelaria Horvath PA-C - Last Filed: 09/21/24 03:02> Vital Signs Vital Signs: Vital Signs Temperature 36.4 C 09/20/24 19:54 Pulse Rate 61 09/20/24 19:54 Respiratory Rate 18 09/20/24 19:54 Blood Pressure 139/53 L 09/20/24 19:54 Pulse Oximetry 97 09/20/24 19:54 Oxygen Delivery Room Air 09/20/24 19:54 Temperature 36.4 C 09/20/24 19:54 Pulse Rate 60 09/21/24 01:44 Respiratory Rate 16 09/21/24 01:44 Blood Pressure 149/57 H 09/21/24 01:44 Pulse Oximetry 95 09/21/24 01:44 Oxygen Delivery Room Air 09/20/24 19:54 <Candelaria Horvath PA-C - Last Filed: 09/21/24 03:02> Vital Signs Temperature 36.4 C 09/20/24 19:54 Pulse Rate 61 09/20/24 19:54 Respiratory Rate 18 09/20/24 19:54 Blood Pressure 139/53 L 09/20/24 19:54 Pulse Oximetry 97 09/20/24 19:54 Oxygen Delivery Room Air 09/20/24 19:54 Temperature 36.4 C 09/20/24 19:54 Pulse Rate 60 09/21/24 01:44 Respiratory Rate 16 09/21/24 01:44 Blood Pressure 149/57 H 09/21/24 01:44 Pulse Oximetry 95 09/21/24 01:44 Oxygen Delivery Room Air 09/20/24 19:54 <Bryant Abdi MD - Last Filed: 09/21/24 07:35> Lab Data Result diagrams: 09/20/24 23:33 09/20/24 23:34 <Candelaria Horvath PA-C - Last Filed: 09/21/24 03:02> Labs: Lab Results 09/20/24 09/20/24 09/21/24 Range/Units 23:33 23:34 00:59 WBC 10.9 H (4.5-10.0) K/mm3 RBC 3.87 L (4.2-5.4) M/mm3 Hgb 11.2 L (12.0-15.0) g/dL Hct 34.4 L (37.0-47.0) % MCV 88.9 (80-100) fl MCH 28.9 (26-34) pg MCHC 32.6 (32-36) g/dl RDW 13.3 (11.5-14.5) % Plt Count 286 (150-375) k/mm3 MPV 10.1 (7.4-10.4) fl Immature Gran % (Auto) 0.2 (0-0.5) % Neut % (Auto) 61.1 (45.5-73.1) % Lymph % (Auto) 28.1 (18.3-44.2) % Mccone % (Auto) 8.9 H (2.6-8.5) % Eos % (Auto) 1.3 (0-4.4) % Baso % (Auto) 0.4 (0.2-1.2) % Lymph # (Auto) 3.07 (0.9-3.2) K/mm3 Mccone # (Auto) 1.0 H (0.1-0.6) K/mm3 Eos # (Auto) 0.1 (0-0.3) K/mm3 Baso # (Auto) 0.0 (0.0-0.1) K/mm3 Abs Immat Gran (auto) 0.02 (0.00-0.031) K/mm3 Absolute Neuts (auto) 6.7 (1.3-6.7) K/mm3 Absolute Nucleated RBC 0.000 (0.0-0.012) K/mm3 Nucleated RBC % 0.0 (0.0-0.2) % PT 13.2 (11.1-14.7) Seconds INR 1.0 APTT 22.6 (22.3-36.8) Seconds Sodium 132 L (137-145) mmol/L Potassium 3.7 (3.4-5.0) mmol/L Chloride 97 L (98-107) mmol/L Carbon Dioxide 29 (22-30) mmol/L Anion Gap 6 (4-12) mmol/L BUN 10 (7-17) mg/dL Creatinine 0.73 (0.7-1.0) mg/dL Estim Creat Clear Calc 47 ml/min Estimated GFR > 60 (59 - ) Glucose 99 (65-110) mg/dL Calcium 8.9 (8.4-10.2) mg/dL Magnesium 2.0 (1.6-2.3) mg/dL Total Bilirubin 0.4 (0.2-1.3) mg/dL AST 27 (14-36) U/L ALT 20 (6-35) U/L Alkaline Phosphatase 119 (38-126) U/L Troponin I < 0.012 (0.000-0.034) ng/mL Total Protein 7.0 (6.3-8.2) g/dL Albumin 3.9 (3.5-5.1) g/dL Lipase 33 (23-300) U/L Urine Color Yellow (Yellow) Urine Appearance Clear (Clear) Urine pH 6.5 (5.0-9.0) Ur Specific [place] 1.025 (1.001-1.035) Urine Protein Negative (Negative) mg/dL Urine Glucose (UA) Negative (Negative) mg/dL Urine Ketones Negative (Negative) mg/dL Ur Blood (Man) Negative (Negative) Urine Nitrate Negative (Negative) Urine Bilirubin Negative (Negative) Urine Urobilinogen 0.2 (<2.0) mg/dL Add Ur Microanalysis Reviewed Leukocyte Esterase Rfl Trace H (Negative) BRICE/UL Urine RBC 0-2 (0-2) /hpf Urine WBC 0-5 (0-3) /hpf Ur Squamous Epith Cells None seen (Few) /hpf Urine Bacteria None seen /hpf Urine Casts 0-2 <Candelaria Horvath PA-C - Last Filed: 09/21/24 03:02> Lab Results 09/20/24 09/20/24 09/21/24 Range/Units 23:33 23:34 00:59 WBC 10.9 H (4.5-10.0) K/mm3 RBC 3.87 L (4.2-5.4) M/mm3 Hgb 11.2 L (12.0-15.0) g/dL Hct 34.4 L (37.0-47.0) % MCV 88.9 (80-100) fl MCH 28.9 (26-34) pg MCHC 32.6 (32-36) g/dl RDW 13.3 (11.5-14.5) % Plt Count 286 (150-375) k/mm3 MPV 10.1 (7.4-10.4) fl Immature Gran % (Auto) 0.2 (0-0.5) % Neut % (Auto) 61.1 (45.5-73.1) % Lymph % (Auto) 28.1 (18.3-44.2) % Mccone % (Auto) 8.9 H (2.6-8.5) % Eos % (Auto) 1.3 (0-4.4) % Baso % (Auto) 0.4 (0.2-1.2) % Lymph # (Auto) 3.07 (0.9-3.2) K/mm3 Mccone # (Auto) 1.0 H (0.1-0.6) K/mm3 Eos # (Auto) 0.1 (0-0.3) K/mm3 Baso # (Auto) 0.0 (0.0-0.1) K/mm3 Abs Immat Gran (auto) 0.02 (0.00-0.031) K/mm3 Absolute Neuts (auto) 6.7 (1.3-6.7) K/mm3 Absolute Nucleated RBC 0.000 (0.0-0.012) K/mm3 Nucleated RBC % 0.0 (0.0-0.2) % PT 13.2 (11.1-14.7) Seconds INR 1.0 APTT 22.6 (22.3-36.8) Seconds Sodium 132 L (137-145) mmol/L Potassium 3.7 (3.4-5.0) mmol/L Chloride 97 L (98-107) mmol/L Carbon Dioxide 29 (22-30) mmol/L Anion Gap 6 (4-12) mmol/L BUN 10 (7-17) mg/dL Creatinine 0.73 (0.7-1.0) mg/dL Estim Creat Clear Calc 47 ml/min Estimated GFR > 60 (59 - ) Glucose 99 (65-110) mg/dL Calcium 8.9 (8.4-10.2) mg/dL Magnesium 2.0 (1.6-2.3) mg/dL Total Bilirubin 0.4 (0.2-1.3) mg/dL AST 27 (14-36) U/L ALT 20 (6-35) U/L Alkaline Phosphatase 119 (38-126) U/L Troponin I < 0.012 (0.000-0.034) ng/mL Total Protein 7.0 (6.3-8.2) g/dL Albumin 3.9 (3.5-5.1) g/dL Lipase 33 (23-300) U/L Urine Color Yellow (Yellow) Urine Appearance Clear (Clear) Urine pH 6.5 (5.0-9.0) Ur Specific [place] 1.025 (1.001-1.035) Urine Protein Negative (Negative) mg/dL Urine Glucose (UA) Negative (Negative) mg/dL Urine Ketones Negative (Negative) mg/dL Ur Blood (Man) Negative (Negative) Urine Nitrate Negative (Negative) Urine Bilirubin Negative (Negative) Urine Urobilinogen 0.2 (<2.0) mg/dL Add Ur Microanalysis Reviewed Leukocyte Esterase Rfl Trace H (Negative) BRICE/UL Urine RBC 0-2 (0-2) /hpf Urine WBC 0-5 (0-3) /hpf Ur Squamous Epith Cells None seen (Few) /hpf Urine Bacteria None seen /hpf Urine Casts 0-2 <Bryant Abdi MD - Last Filed: 09/21/24 07:35> Discharge Plan Discharge Clinical Impression: Lightheadedness, Pulmonary nodule, Abdominal cramping in left lower quadrant <Candelaria Horvath PA-C - Last Filed: 09/21/24 03:02> Patient Disposition: Home <HAIDER Castle Last Filed: 09/21/24 03:02> Condition: Stable <HAIDER Castle Last Filed: 09/21/24 03:02> Instructions: Antibiotic Form, Lightheadedness (ED) <HAIDER Castle Last Filed: 09/21/24 03:02> Additional Instructions: You were evaluated in the emergency department for an episode of dizziness and lightheadedness that occurred today as well as lower abdominal cramping. Your workup here is reassuring. Incidentally you were found have a 0.7 cm left lower lobe pulmonary nodule. Please follow-up with primary care for this as you may need an outpatient CT scan for further evaluation. It is uncertain what the source of your lightheadedness cold sweats were. This may have been due to a vasovagal reaction as discussed versus dehydration verses not having anything to eat in the morning versus taking all of your blood pressure medications at the same time. Please follow-up closely with her primary care provider and return to the emergency department if you develop chest pain, shortness of breath, worsening lightheadedness or dizziness, you lose consciousness or other concerning symptoms. <HAIDER Castle Last Filed: 09/21/24 03:02> Patient Language: Kenyan <Candelaria Horvath PA-C - Last Filed: 09/21/24 03:02> Prescriptions: No Action ketoconazole 2 % cream topical hydrocortisone 2.5 % cream topical ketoconazole 2 % shampoo topical 2XW Saccharomyces boulardii [Florastor] 250 mg capsule 250 mg PO BID Qty: 60 0RF dicyclomine 20 mg tablet 20 mg PO QID PRN (Reason: abdominal pain) 30 Days Qty: 120 5RF metoprolol succinate 25 mg tablet extended release 24 hr 25 mg PO DAILY Qty: 90 3RF escitalopram oxalate [Lexapro] 20 mg tablet 20 mg PO DAILY Qty: 90 3RF losartan 100 mg tablet 100 mg PO DAILY Qty: 90 0RF amlodipine 5 mg tablet See Rx Instructions .ROUTE .COMPLEX Qty: 90 0RF Dose Instruction: TAKE 1 TABLET BY MOUTH DAILY Rx Instructions: TAKE 1 TABLET BY MOUTH DAILY <Candelaria Horvath PA-C - Last Filed: 09/21/24 03:02> Follow-up/Referrals: Guilherme Alexis MD [Primary Care Provider] - <Candelaria Horvath PA-C - Last Filed: 09/21/24 03:02>
[2024-09-21 01:34] LABS: Add Urine Microscopic? YES; Appearance Urine Clear (Clear); Bacteria Urine None Seen /hpf; Bilirubin Urine Negative (Negative); Blood Urine Negative (Negative); Color Urine Yellow (Yellow); Glucose Urine UA Negative (Negative); Ketones Urine Negative (Negative); Leukocyte Esterase Ur Trace LEU/UL (Negative); Need Manual Microscopic Reviewed; Nitrate Urine Negative (Negative); Non Pathogenic Casts 0-2; Protein Urine Negative (Negative); RBC Urine 0-2 /hpf (0-2); Specific Grav Ur 1.025 (1.001-1.035); Squamous Epithelial Cell Urine None Seen /hpf (Few); Urobilinogen Urine 0.2 mg/dL (<2.0); WBC Urine 0-5 /hpf (0-3); pH Urine 6.5 (5.0-9.0)
[2024-09-21 01:44] VITALS: BP 149/57; PULSE 60; RESP 16; O2SAT 95
== END 2024-09-21 03:20 | disposition home or self-care (01) ==
PROVIDERS: Emergency Provider Physician Assistant; PCP Family Medicine
DX: R42 Dizziness and giddiness (principal); R91.1 Solitary pulmonary nodule; R10.32 Left lower quadrant pain; I10 Essential (primary) hypertension; K58.9 Irritable bowel syndrome, unspecified; Z87.891 Personal history of nicotine dependence
CPT/HCPCS: 36415; 71046; 74177; 80053; 81001; 83690; 83735; 84484; 85025; 85610; 85730; 93005; 99284; Q9967

== ENCOUNTER 2024-10-13 09:58 | Outpatient (CLI) | payer MEDICARE, SELFPAY ==
--- NOTE | ~2024-10-13 | CT_ITS ---
CT Scan of the Chest without Contrast: Clinical Indication: Pulmonary nodule Technique: Contiguous sections were acquired throughout the chest without intravenous contrast. Dose reduction technique was used on this scan by utilizing automated exposure control and iterative recon struction technique. The dose-length product (DLP) was 149.55 mGy-cm. COMPARISON: 07/17/2022 Findings: There is no evidence of any significant mediastinal, hilar or axillary lymphadenopathy. The mediastin al soft tissues appear normal. There is no evidence of pleural or pericardial effusion. Stable biapical scarring. Mild emphysema. Calcified right upper lobe granulomas are present. Images through the upper abdomen reveal stable low-density diffuse thickening or nodularity left adre nal gland. Stable T7 compression deformity. Impression: No significant pulmonary nodule. Stable biapical scarring. Mild emphysema. Stable diffuse thickening or nodularity of the left adrenal gland. Stable T7 compression deformity. Reviewed, dictated and finalized at [facility]. Impression: No significant pulmonary nodule. Stable biapical scarring. Mild emphysema. Stable diffuse thickening or nodularity of the left adrenal gland. Stable T7 compression deformity.
== END 2024-10-13 09:59 | disposition home or self-care (01) ==
PROVIDERS: PCP Family Medicine; Visit Provider Physician Assistant Medical
DX: R91.1 Solitary pulmonary nodule (principal); J43.9 Emphysema, unspecified; E27.9 Disorder of adrenal gland, unspecified; S22.060A Wedge compression fracture of T7-T8 vertebra, initial encounter for closed fracture; Z87.891 Personal history of nicotine dependence; X58.XXXA Exposure to other specified factors, initial encounter
CPT/HCPCS: 71250

== ENCOUNTER 2024-12-23 14:27 | Outpatient (CLI) | payer MEDICARE, SELFPAY ==
--- OUTSIDE RECORDS SUMMARY | 2024-12-23 14:41 | XMS_ITS | Clinical Summary ---
Author Organization [facility] Address [address] [place] [address] [place] [address] Care Team Providers Care Property Management Assistant Name Role Phone Guilherme Alexis MD Primary Care Provider [phone] Source Comments [facility],non-owned Affiliates and Associated Physician Practices is amultiple site organization consisting of ambulatory clinics and hospital sitesin [place], [place], [place] and [place]. This disclosure is being madepursuant to the Care Everywhere program and may not contain all information available regarding this patient. Last updated 18.[facility] Allergies Active Allergy Reactions Criticality Noted Date [...] season) 2023 DEPRESSION SCREENING 04/23/2024 INFLUENZA VACCINE (#1) 2024 HEPATITIS B VACCINE Aged Out No [...] MEDICARE COMMERCIAL GENERIC MEDICARE MEDICARE Care Teams Property Management Assistant Relationship Specialty Start Date End Date Guilherme Alexis MD [address] [place] [address] PCP - General 03/10/21
--- OUTSIDE RECORDS SUMMARY | 2024-12-23 14:41 | XMS_ITS | Clinical Summary ---
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 Gender Identity Not on file Sexual Orientation [...] 03/11/2021, Additional history exists Influenza Vaccine (#1) 2024 , 03/11/2021, 01/30/2020, Additional history exists Insurance MEDICARE COMMERCIAL GENERIC MEDICARE MEDICARE COMMERCIAL GENERIC Care Teams Labor Economist Relationship Specialty Start Date End Date Vira Fuentes PA [address] [place] [address] PCP - General Physician Credit Reference Clerk 09/04/22 Jong Villanueva MD Consulting Physician Cardiology 06/21/21 Christopher Madsen MD [address] [facility] [address] [address] Referring Physician Gastroenterology 10/02/22
[2024-12-23 15:20] LABS: CRP < 0.5 mg/dL (<1.0)
[2024-12-25 07:09] LABS: Deamidated Gliadin Abs, IgA 3 units (0-19); Deamidated Gliadin Abs, IgG 1 units (0-19); Immunoglobulin A, Qn 197 mg/dL (64-422)
== END 2024-12-23 14:28 | disposition home or self-care (01) ==
LOC: ANHLAB 14:29
PROVIDERS: PCP Family Medicine; Visit Provider Nurse Practitioner Family
DX: K58.0 Irritable bowel syndrome with diarrhea (principal)
CPT/HCPCS: 36415; 82784; 85652; 86140; 86231; 86258

== ENCOUNTER 2024-12-25 13:30 | Outpatient (NON) | payer MEDICARE, SELFPAY ==
--- OUTSIDE RECORDS SUMMARY | 2024-12-25 13:39 | XMS_ITS | Clinical Summary ---
Author Organization [facility] Address [address] [place] [address] [place] [address] Care Team Providers Care Behavioral Health Technician Name Role Phone Guilherme Alexis MD Primary Care Provider [phone] Source Comments [facility],non-owned Affiliates and Associated Physician Practices is amultiple site organization consisting of ambulatory clinics and hospital sitesin [place], [place], [place] and [place]. This disclosure is being madepursuant to the Care Everywhere program and may not contain all information available regarding this patient. Last updated 18.[facility] Allergies Active Allergy Reactions Criticality Noted Date [...] MEDICARE COMMERCIAL GENERIC MEDICARE MEDICARE Care Teams Behavioral Health Technician Relationship Specialty Start Date End Date Guilherme Alexis MD [address] [place] [address] PCP - General 03/10/21
--- OUTSIDE RECORDS SUMMARY | 2024-12-25 13:39 | XMS_ITS | Patient Health Record ---
Author Organization [facility] Address [address] [place], [place] [id number] Care Team Providers Care Personal Injury Paralegal Name Role Phone AVIS Santa Unavailable Chely Bustos Unavailable Unavailable Reason For Referral No Information Plan Of Treatment No Information Insurance Providers Payer Name Payer Address Payer Phone Subscriber Number Group Number Insured Name Patient Relationship to Insured Coverage Start Date Coverage End Date Medicare Part B [place] [address] [place] [address] [id number] RAFAEL LEES Self - patient is the insured [facility] [address] [address] [place], [place] [phone] [id number] RAFAEL LEES Self - patient is the insured
--- OUTSIDE RECORDS SUMMARY | 2024-12-25 13:39 | XMS_ITS | Clinical Summary ---
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
--- OUTSIDE RECORDS SUMMARY | 2024-12-25 13:39 | XMS_ITS | Patient Health Record ---
Author Organization [facility] Address [address] [facility] [address] [place], [place] [id number] Support Name Relationship Address Phone RAFAEL MCNALLY Guarantor Unknown Reason For Referral No Information Plan Of Treatment No Information
--- OUTSIDE RECORDS SUMMARY | 2024-12-25 13:39 | XMS_ITS | Patient Health Record ---
Author Organization [facility] , Address [facility] [address] [facility] [address] [place] [address] Care Team Providers Care Sap Bi Architect Name Role Phone Guilherme Alexis Primary Care Provider Scott Larios [phone] ALLERGIES Allergen (clinical drug ingredient) Drug/Non Drug Allergy documented on EMR Reaction Allergy Type Onset Date Status Codeine (Allergy only) Unknown Drug Allergy Active Ceftin Unknown Drug Allergy Active REASON FOR REFERRAL No Information MEDICATIONS Medication SIG (Take, Route, Fr equency, Duration) Notes Start Date End Date Status Estradiol 1 MG 1 tablet Orally Farhad y for Three Weeks, 1 Week off Active Provera 10 1 tablet Orally Once a day Active SOCIAL HISTORY Sex Assigned At : Social History Observation Description Sex Assigned At Unknown PROBLEMS Problem Type ICD Code Onset Dates Problem Status W/U Status Risk SNOMED Code Notes Problem Fracture, humerus, proximal (812.00) Active confirmed 822749336 PLAN OF TREATMENT No Information Insurance Providers Payer Name Payer Address Payer Phone Subscriber Number Group Number Insured Name Patient Relationship to Insured Coverage Start Date Coverage End Date Medicare [place] [address] [address] [place] [phone] [id number] Daja Flaherty Self - patient is the insured [facility] [address] [address] [place] [address] [id number] Daja Flaherty Self - patient is the insured MEDICAL (GENERAL) HISTORY Surgical History Surgery Date(Month/Year) ORIF L Humerus
[2024-12-26 15:09] LABS: Fats, Neutral Normal (.); Fats, Total Normal (.)
[2024-12-29 01:07] LABS: Pancreatic Elastase, Fecal 348 (>200)
[2024-12-29 08:08] LABS: Calprotectin, Fecal 74 ug/g (0-120)
== END 2024-12-25 13:31 | disposition home or self-care (01) ==
LOC: ANHLAB 13:31
PROVIDERS: PCP Family Medicine; Visit Provider Nurse Practitioner Family
DX: K52.9 Noninfective gastroenteritis and colitis, unspecified (principal)
CPT/HCPCS: 82653; 82705; 83993

== ENCOUNTER 2025-01-07 10:27 | Outpatient (CLI) | payer MEDICARE, SELFPAY ==
--- NOTE | ~2025-01-07 | CT_ITS ---
EXAMINATION: CTA abdomen pelvis DATE: 01/07/2025 10:59 INDICATION: Diarrhea, unspecified. TECHNIQUE: Computed tomographic angiography (CTA) of the abdomen and pelvis was performed with 100 mL Omnipaque-350 intravenous contrast. Automated exposure control and iterative reconstruction technique were employed. The dose-length product was 356.99 mGy-cm. Maximum intensity projection 3D-reconstructions of the aorta and other arteries were constructed by the technologist on a separate workstation. COMPARISON: CT abdomen and pelvis 09/21/2024, 11/17/2020 FINDINGS: The visualized portions of the lung bases demonstrate mild atelectasis. Emphysema is noted. No pleural effusion. Cardiomegaly is noted. No pericardial effusion. The liver, gallbladder, spleen, pancreas, and right adrenal gland are normal. There is a 1.9 cm mass in left adrenal gland measuring soft tissue attenuation, stable from 11/17/2020, likely an adenoma. There is cortical thinning of the kidneys. There is a 5 mm cyst in right kidney. Bowel malrotation is noted. There are no dilated loops of bowel. There is a large volume of stool in the colon. The appendix is normal. There is a small sliding hiatal hernia. There is an umbilical hernia containing fat. There are no pathologically enlarged lymph nodes. There is no free intraperitoneal fluid. 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 There is no significant stenosis of superior mesenteric artery or the left renal arteries. There is moderate stenosis of the larger of the two right renal arteries. There is moderate stenosis of inferior mesenteric artery. There is severe lumbar spondylosis. IMPRESSION: 1. 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 No significant stenosis of superior mesenteric artery. 2. Moderate stenosis of the larger of the two right renal arteries. 3. Small sliding hiatal hernia. 4. Umbilical hernia containing fat. Reviewed, dictated and finalized at location E. IMPRESSION: 1. 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 No signific ant stenosis of superior mesenteric artery. 2. Moderate stenosis of the larger of the two right renal arteries. 3. Small sliding hiatal hernia. 4. Umbilical hernia containing fat.
[2025-01-07 10:54] LABS: Estimated Glomerular Filt Rate > 60
== END 2025-01-07 10:28 | disposition home or self-care (01) ==
PROVIDERS: PCP Family Medicine; Visit Provider Nurse Practitioner Family
DX: I07.0 Rheumatic tricuspid stenosis (principal); I77.1 Stricture of artery; I70.1 Atherosclerosis of renal artery; K44.9 Diaphragmatic hernia without obstruction or gangrene; K42.9 Umbilical hernia without obstruction or gangrene
CPT/HCPCS: 74174; Q9967

== ENCOUNTER 2025-02-04 01:00 | Day surgery (SDC) | payer MEDICARE, SELFPAY ==
--- OUTSIDE RECORDS SUMMARY | 2025-02-04 01:11 | XMS_ITS | Data Portability ---
Author Organization [facility] Address [address] [place] [address] Care Team Providers Care Audio Visual Director Name Role Phone POLA ARRIAGA Primary Care Provider [phone] Assessment Encounter Date Assessment Date Assessment LastModified [...] performed today. We spent over 25 minutes [id number]. The patient was given precautions. She will contact clinic if pelvic pain increases in frequency or intensity. Also notify clinic of any new symptoms associated with pelvic pain. She does not appear to have an acute pelvic infection today, but was asked to contact us Immediately with nausea, vomiting, fever, chills. [email or web address] Not available 08/02/2021 11:13:02 Plan of Treatment Reminders Order Date Submit Date Provider Last Modified By Organization Details Last Modified Time Details Appointments None recorded. Lab None recorded. Referral dermatologi st referral - Pruritic rash Please contact this patient to schedule an appointment or if she has already been seen, please fax over the consults notes. Thank you. Attached are the patients demographic s and most recent office visit notes. If you have any questions, please contact me at [email or web address]. Thank you, Shi, Referral's 2021 [facility], [address] [place], [address], 15:38:52 Procedures None recorded. Surgeries None recorded. Imaging DEXA, axial skeleton + vertebral fracture assessment 2021 [facility], [address], [place], [address], 2 12:19:15 MAMMO, screening, bilateral 2019 020 [email or web address] [facility], [address], [place], [address], 0 15:18:45 DEXA, axial skeleton + vertebral fracture assessment 2019 020 [email or web address] [facility], [address], [place], [address], 0 15:18:45 Medication Orders escitalopra m 10 mg tablet 2021 022 [id number], [address], [place], [place], [id number], 2 11:14:01 Lexapro 10 mg tablet [address] [facility], [address] [place], [address], 0 12:51:13 Patient TargetsNo targets recorded. Patient InstructionsNo instructions recorded. Reason for Referral Filling Carrier Referral for P ruritic rash Pruritic rash Pruritic rashPlease contact this patient to schedule an appointment or if she has already been seen, please fax over the consults notes. Thank you.Attached are the patients demographics and most recent office visit notes.If you have any questions, please contact me at [phone].Thank you,Shi, Referral's Referring Physician: Altagracia Orlando, H[employer] IR[employer] WORKER, Encounter Date: 08/02/2021 Results Created Date Observation [...] t Abnor mal: No Resul ting Lab: [facility] [address] [facility] [address] Tel: CULTU RE ----- ----- ----- --- No growt h in 1 day (dete ction level of 10,00 0 colon ies / ml.) Not Available [facility] (Lab) [address] [facility], [place], [address], 08/03/2021 22:45:48 08/04/19 22 08/03/2021 urina lysis , dipst ick Leukocytes +3 Not Available Cara huddleston [address], [place], [address], 08/03/2021 17:41:30 08/04/19 22 08/03/2021 urina lysis , dipst ick Nitrite normal Not Available [facility] [address], [place], [address], 08/03/2021 17:41:30 08/04/19 22 08/03/2021 urina lysis , dipst ick Urobilinogen normal Not Available Shala berumen [address], [place], [address], 08/03/2021 17:41:30 08/04/19 22 08/03/2021 urina lysis , dipst ick Protein trace Not Available [facility] [address], [place], [address], 08/03/2021 17:41:30 08/04/19 22 08/03/2021 urina lysis , dipst ick pH 8 Not Available [facility] [address], [place], [address], 08/03/2021 17:41:30 08/04/19 22 08/03/2021 urina lysis , dipst ick Specific [place] 1.010 Not Available [facility] [address], [place], [address], 08/03/2021 17:41:30 08/04/19 22 08/03/2021 urina lysis , dipst ick Ketone normal Not Available [facility] [address], [place], [address], 08/03/2021 17:41:30 08/04/19 22 08/03/2021 urina lysis , dipst ick Bilirubin normal Not Available [facility] [address], [place], [address], 08/03/2021 17:41:30 08/04/19 22 08/03/2021 urina lysis , dipst ick Glucose normal Not Available [facility] [address], [place], [address], 08/03/2021 17:41:30 08/04/19 22 08/03/2021 urina lysis , dipst ick Appearance normal Not Available Cara huddleston [address], [place], [address], 08/03/2021 17:41:30 08/04/19 22 08/03/2021 urina lysis , dipst ick Color normal Not Available [facility] [address], [place], [address], 08/03/2021 17:41:30 01/12/20 22 01/10/2022 MAMMO , scree frank, bilat eral No observ ation record ed. [email or web address] [facility] [address], [place], [address], 01/13/2022 14:42:53 01/20/20 DEXA, axial skele ton + verte bral fract ure asses sment No observ ation record ed. [email or web address] [facility] [address], [place], [address], 01/19/2022 12:19:20 01/23/20 23 05/12/2022 CT, abdom en, w/wo contr ast No observ ation record ed. [email or web address] [facility] [address] [place], [address], 01/22/2023 16:08:33 Result Notes None recorded. Problems Name Problem SNOMED Code Status Onset Date Resolution Date Notes Provider Name and Address Organization Details Recorded Time Screenin g for malignan t neoplasm of rectum Completed 201308/01/2021 Screening for malignant neoplasms of the rectum;Pr actice ID: 0001 Rachael choudhary [facility] 2 18:30:59 Feces contents abnormal [id number] Completed 201408/01/2021 Nonspecif ic abnormal findings in stool contents; Practice ID: 0001 Rachael choudhary [facility] 2 18:30:59 Adult health examinat ion Completed 201408/01/2021 Routine general medical examinati on at a health care facility; Practice ID: 0001 Rachael choudhary [facility] 2 18:30:59 Speciali zed medical examinat ion Completed 201408/01/2021 Routine gynecolog ical examinati on;Practi ce ID: 0001 Rachael choudhary [facility] 2 18:30:59 Screenin g for malignan t neoplasm of cervix Completed 201408/01/2021 Pap Smear;Pra ctice ID: 0001 Rachael Easton [facility] 2 18:30:[address] Concept Completed 201508/01/2021 Encntr for general adult medical exam w/o abnormal findings; Practice ID: 0001 Rachael Easton [facility] 2 18:30:[address] Concept Completed 201508/01/2021 Encntr for mink farmer exam (general) (routine) w/o abn findings; Practice ID: 0001 Rachael Easton [facility] 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 18:30:59 Menopaus e present [id number] Completed 201708/01/2021 Menopausa l and female climacter ic states;Pr actice ID: 0001 Rachael [facility]on [facility] 2 18:30:59 Pelvic and perineal pain [id number] Completed 201708/01/2021 Pelvic and perineal pain;Prac savanah ID: 0001 Rachael Easton [facility] 2 18:30:59 Emotiona l state finding Completed 201708/01/2021 Other specified anxiety disorders ;Practice ID: 0001 Rachael [facility]on [facility] 2 18:30:59 Problem Notes None recorded. Procedures Surgical History Date Name Laterality Status Provider Name and Address Organization Details Recorded Time 08/03/19 22 Date of Last Pap Smear completed [facility] 08/02/2021 11:14:22 04/23/19 15 procedure on shoulder completed [facility] 08/03/2021 17:37:00 04/23/19 08 Hysteroscopy completed [facility] 08/03/2021 17:36:42 Imaging Results None recorded. Procedure Notes None recorded. Medical Equipment None Reported. Allergies Allergen ID Allergen Name Allergen Category Reaction Reaction Severity Criticality Documentation Date Start Date Code Code System Note Provider Name and Address Organization Details Recorded Time 2209 cefuroxim e Not available Not available Not available Not available 01/21/2020 2194 RxNorm [facility]ncia [facility]ke[facility]ll [facility] 12:11:53 2211 codeine medicatio n Not available Not available Not available 01/21/2020 2670 RxNorm Florencia Rockwell [facility] 0 12:11:58 2212 ibuprofen medicatio n Not available Not available Not available 01/21/2020 5640 RxNorm [facility] 12:12:04 Medications Name Sig [...] Prescrib ed Elsewher e: No Locat ion: [facility] M odify By: lbillhar tz Encou nter DateTime : 07/25/19 19 11:30:00 AM Not Available Not Available Not Available Vivelle 0.05 mg/24 hr transderm al patch apply 1 patch by transder mal route 2 times every week 03/20 completed Prescrib ed Elsewher e: Yes Loca tion: Jae mcelroy [facility] odify By: alex Jacobs nter DateTime : [...] Prescrib ed Elsewher e: Yes Loca tion: [facility] odify By: nabila alvaradounter DateTime : 05/12/19 15 02:30:00 PM Not Available Not Available Not Available estradiol 1 mg tablet take 1 tablet by oral route every day 11/25 completed Prescrib ed Elsewher e: No Locat ion: [facility] odify By: emerson hull DateTime : 07/25/19 19 11:30:00 AM Not Available Not Available Not Available Zoloft 50 mg tablet take 1 tablet (50MG) by oral route every day 03/27 completed Prescrib ed Elsewher e: No Locat ion: [facility] odify By: nathan hull DateTime : 03/20/20 [...] Elsewher e: Yes Loca tion: Jae mcelroy [facility] odify By: smcfrancine Wilkste r DateTime : 03/18/20 11 05:31:53 PM Not Available Not Available Not Available CellCept 250 mg capsule take 6 capsule by oral route 2 times every day 03/20 completed Prescrib ed Elsewher e: Yes Loca tion: Jae mcelroy [facility] odify By: smcrfancine Wilkste r DateTime : 03/18/20 11 05:31:53 PM Not Available Not Available Not Available estradiol 0.5 mg tablet take 1 tablet by oral route every day 11/25 completed Prescrib ed Elsewher e: No Locat ion: [facility] odify By: emerson hull DateTime : 11/26/19 [...] Elsewher e: No Locat ion: Jae mcelroy [facility] odify By: emerson hull DateTime : 07/25/19 [...] Elsewher e: Yes Loca tion: Jae mcelroy [facility] odify By: ninoska juarez DateTime : 06/16/19 [...] Elsewher e: Yes Loca tion: Jae mcelroy [facility] odify By: nathan hull DateTime : 05/12/19 [...] Elsewher e: Yes Loca tion: Jae mcelroy [facility] odify By: nathan hull DateTime : 05/12/19 15 02:30:00 PM Not Available Not Available Not Available B Complex 1.7 mg-20 mg-2 mg-1.2 mg/mL sublingua l liquid active Prescrib ed Elsewher e: Yes Loca tion: [facility] odify By: nathan hull DateTime : 05/12/19 [...] Prescrib ed Elsewher e: Yes Loca [facility] odify By: ninoska Mcelroy ncounter DateTime : 05/12/19 15 02:30:00 PM Not Available Not Available Not Available Women's 50+ Daily Formula (with ginkgo) 400 mcg-120 mg tablet active Prescrib ed Elsewher e: Yes Loca tion: [facility] odify By: nathan hull DateTime : 05/12/19 15 02:30:00 PM Not Available Not Available Not Available Vitals Date Recorded Systolic And Diastolic Provider Name and Address Organization Details Last Updated DateTime 08/02/2021 132/82 mm[Hg] Altagracia Orlando, [facility]- [address], [place], [address], [facility] 08/02/2021 11:27:31 Date Recorded Body height Body mass index (BMI) Body weight Provider Name and Address Organization Details Last Updated DateTime 08/02/2021 152.4 cm 28.7 kg/m2 88541.08 g Fanny Grewal [facility] 08/02/2021 11:13:45 Date Recorded Body height Body mass index (BMI) Body weight Systolic And Diastolic Provider Name and Address Organization Details Last Updated DateTime 01/21/2020 152.4 cm 29.7 kg/m2 07350.04 g 140/82 mm[Hg] Florencia Rockwell [facility] 01/21/2020 12:23:53 Date Recorded Body height Body mass index (BMI) Body weight Systolic And Diastolic Provider Name and Address Organization Details Last Updated DateTime 01/29/2023 152.4 cm 28.7 kg/m2 64495.08 g 115/75 mm[Hg] Betty Renteria [facility] 01/29/2023 14:45:14 Social History Question Answer Notes LastModified by Organizat ion Details LastModified Time Tobacco Smoking Status Never Smoker Not Available [facility] 02/24/2020 03:28:11 Are You Blind Or Do You Have Difficulty Seeing? No [email or web address] Information n ot available 08/03/2021 What Is Your Level Of Caffeine Consumption? Occasional [email or web address] Information not available 08/03/2021 In The 14 Days Before Symptom Onset, Have You Had Close Contact With A Laboratory-confirm ed COVID-19 While That Case Was Ill? No [email or web address] Information n ot available 08/03/2021 In The 14 Days Before Symptom Onset, Have You Had Close Contact With A Person Who Is Under Investigation For COVID-19 While That Person Was Ill? No [email or web address] Information not available 08/03/2021 Have You Been To An Area Known To Be High Risk For COVID-19? No [email or web address] Information not available 08/03/2021 Are You Deaf Or Do You Have Serious Difficulty Hearing? No Information not available 08/03/2021 What Type Of Diet Are You Following? REGULAR [email or web address] Information n ot available 08/03/2021 Have You Ever Been Counseled For Unhealthy Alcohol Use? No [email or web address] Information not available 08/03/2021 Do You Use Your Seat Belt Or Car Seat Routinely? Yes Information not available 08/03/2021 Do You Have Smoke And Carbon Monoxide Detectors In Your Home? Yes [email or web address] Information not available 08/03/2021 Do You Use Sunscreen Routinely? Yes [email or web address] Information not available 08/03/2021 Has Tobacco Cessation Counseling Been Provided? No [email or web address] Information not available 08/03/2021 Do You Have Difficulty Walking Or Climbing Stairs? No [email or web address] Information not available 08/03/2021 Sex: Unknown Functional Status Question Answer Note LastModified by Organizat ion Details LastModified Time Do you use any illicit or recreational drugs? No [email or web address] Information not available 08/03/2021 Do you or have you ever used any other forms of tobacco or nicotine? No [email or web address] Information not available 08/03/2021 What is your level of alcohol consumption? Occasional [email or web address] Information not available 08/03/2021 Are you able to walk independently without assistance or assistive devices? YESWOREST [email or web address] Information not available 08/03/2021 Are you able to care for yourself independently? Yes Information not available 08/03/2021 Do you have difficulty dressing, bathing, grooming, or toileting? No [email or web address] Information not available 08/03/2021 What is your exercise level? Occasional Information not available 08/03/2021 Mental Status Question Answer Note LastModified by Organization D etails LastModified Time Do you feel stressed (tense, restless, nervous, or anxious, or unable to sleep at night)? [id number] [email or web address] Information not available 08/03/2021 Family History Relationship Description Onset Age of this Age Resolved Age Notes LastModified by Organization Details LastModified Time Mother Hypertensive disorder [email or web address] Not available 2019 12:12:52 Mother Acute stroke [email or web address] Not availa ble 01/21/2020 12:12:57 Medical History Condition Response Allergies (Food, seasonal, environmental ) N Other Y Breast Cancer N Drug/Latex Allergies/Reactions Y Blood Transfusion N Dermatologic Disorders N Lung Disease N Defects or Inherited Disease N Breast Problem N Gestational Diabetes N Hematologic disorders N Anesthesia Complications N History of STI Y Deep Vein Thrombosis N Polycystic ovary syndrome N Anxiety Disorder Y Autoimmune disease N Arthritis N Infertility N Polyps N Acid Reflux (GERD) N History of abnormal pap N Cancer N Stroke N Neurologic/Epilepsy Y Endometriosis N High Cholesterol N Headaches N Fibromyalgia N Kidney Disease N Heart Problems N Kidney or Bladder Problems Y Thyroid Problems N GI Problems Y Eating Disorder N Anemia N Art (IVF or FET) N Psychiatric Illness N Ovarian Cancer N Diabetes N Pulmonary (TB, Asthma) N Hepatitis/Liver Disease N No Past Medical History N Eczema N Abuse/Domestic Violence N Asthma N Trauma/Violence N Depression/ depression Y Heart Disease N Pre-Eclampsia N Hypertension Y Osteoporosis Y Thrombophilias N Gynecological History Statement/Question Response Abnormal Pap N [...] Diagnosis SNOMED-CT Code Diagnosis ICD10 Code Diagnosis IMO Codes Diagnosis Note [id number] Altagracia Orlando [facility] [address],[facility] [place] [address] 01/21/2020 12:09:07 01/21/2020 12:58:06 Menopausal syndrome 190681601 N95.1 Happy on this medication . RF sent x 1yr supply Time spent in visit is a total of 15mins with at least 50% of visit consisting of counseling and review of plan of care. Screening mammography 24 771423 Z12.31 Screening for osteoporosis 750586937 Z13.820 [id number] [facility]rac[facility] [address] [address] 08/02/2021 10:30:34 08/02/2021 11:26:53 Gynecologic examination 49916753 Z01.419 Take Calcium with Vitamin D 12-1500mg [...] Labs UTD PCPMammo ordered Postmenopausal state 764 48611 Z78.0 Menopausal syndrome 1237 52634 N95.1 Happy on this medication . RF sent x 1yr supply Time spent in visit is a total of 15mins with at least 50% of visit consisting of counseling and review of plan of care. Pruritic rash 18016490 L 28.2 Red slightly raised spots that have some itch to them present for almost 6mos.Not multiplyin g but not resolving. She uses anti-itch cream which helps but requests a referral for further evaluation . [id number] Zev Stoddard MD [facility] [address] [address] 01/29/2023 14:26:00 01/30/2023 08:57:23 Pain in pelvis 75219338 R10.2 This patient is a 77-year-ol d [...] Recorded Advance Directives Directive None Recorded Payers Insurance Date Sequence Insurance Name Policy Number Policy Tripp Covered Member ID Tripp Member ID Guarantor Name 08/02/2021 2 [employer] (MEDICARE SUPPLEMENT) Daja Mckinley [id number] 01/26/2023 1 MEDICARE-[place] (MEDICARE) Daja Mckinley [id number] Notes Date Note Type Note Provider Name and Address Organization Details Recorded Time 0 text/html ROS as noted in the HPI Patient is a 74yo white female here today for medication check of Lexapro & updated mammo/dexa orders. She is doing well on this medication & would like to continue. Still has a few hot flashes when tries to d/c med. Happy staying on it. Also feels it helps her mood. No complaints or issues this year. Altagracia Orlando, AALIYAH- [address], [place], [address], [facility] 01/21/2020 12:52:31 2 text/html Annual Soap Tender Post-MenopausalReported by PatientGenitourinary symptomsFor menopausal symptoms, patient reportsno menopausal symptomsandnormal vaginal lubrication. For vaginal bleeding, patient reportshistory of menopause having occurredandno history of post menopausal bleeding. For urinary symptoms, patient reportsno hematuria,no incontinence,no nocturia, andno urinary frequency. For vulva, patient reportsno genital lesionandno vulvar atrophy. For vagina, patient reportsnormal vaginal dischargeandno vaginal atrophy.Breast symptomsFor breast, patient reportsno breast lump,no nipple discharge, andno breast pain.Psychological symptomsFor sexual complaints, patient reportsno sexual complaints. For psychological symptoms, patient reportsno depressionandno anxiety.Preventative measuresFor preventive measures, patient reportsencourage regular mammograms starting age 40,encourage self breast examination,encourage regular exercise,encourage no tobacco use,mammogram performed within the past year,needs to schedule mammogram,history of recent colonoscopy, andneeds to schedule bone density. Altagracia Orlando, AALIYAH- [address], [place], [address], , P[facility] 08/02/2021 11:27:43 3 text/html This patient is a 77-year-old female [...] forward in this. We spent 40 minutes [id number]. We had a lengthy visit talked about a lot of detail on pelvic congestion syndrome. More than 50% was counseling Zev Stoddard MD [address], [place], [address], [facility] 01/29/2023 21:36:15 OBGyn Episode Ob Episode Information Episode Created Date Number of Fetuses Patient Bloodtype Patient rh Status Prepregnancy Weight lbs Domestic Partner Domestic Partner Phone Father Name Fiber [employer] Central Office Installer Status 01/21/20 20 1 CLOSED Fetus Data [...] Domestic Partner Domestic Partner Phone Father Name Fiber Opt[employer] Central Office Installer Status 01/21/20 20 1 CLOSED Fetus Data [...] Domestic Partner Domestic Partner Phone Father Name Fiber Optic Central Office Installer Status 01/21/20 20 1 CLOSED Fetus Data [...]
--- OUTSIDE RECORDS SUMMARY | 2025-02-04 01:12 | XMS_ITS | Clinical Summary ---
Author Organization [facility] Address [address] [place] [address] [place] [address] Care Team Providers Care Robotics Technologist Name Role Phone Guilherme Alexis MD Primary Care Provider [phone] Source Comments [facility],non-owned Affiliates and Associated Physician Practices is amultiple site organization consisting of ambulatory clinics and hospital sitesin [place], [place], [place] and [place]. This disclosure is being madepursuant to the Care Everywhere program and may not contain all information available regarding this patient. Last updated 18.[facility] Allergies Active Allergy Reactions Criticality Noted Date [...] yrs (1 - 1-dose 75+ series) 09/12/2018 DEPRESSION SCREENING 04/23/2024 COVID-19 VACCINE ( - 2023-2 5 season) 2024 INFLUENZA VACCINE (#1) 2024 HEPATITIS B VACCINE [...] MEDICARE COMMERCIAL GENERIC MEDICARE MEDICARE Care Teams Robotics Technologist Relationship Specialty Start Date End Date Guilherme Alexis MD [address] [place] [address] PCP - General 03/10/21
--- OUTSIDE RECORDS SUMMARY | 2025-02-04 01:12 | XMS_ITS | Patient Health Record ---
Author Organization [facility] , Address [facility] [place] [address] Care Team Providers Care Tunnel Miner Name Role Phone Guilherme Alexis Primary Care Provider Scott Larios [phone] ALLERGIES Allergen (clinical drug ingredient) Drug/Non Drug [...] 1 tablet Orally Once a day Active PROBLEMS Problem Type ICD Code Onset Dates Problem Status W/U Status Risk SNOMED Code Notes Problem Fracture, humerus, proximal (812.00) Active confirmed [id number] PLAN OF TREATMENT No Information Insurance Providers Payer Name Payer Address Payer Phone Subscriber Number Group Number Insured Name Patient Relationship to Insured Coverage Start Date Coverage End Date Medicare [place] [address] [address] [place] [address] [id number] Daja Flaherty Self - patient is the insured [facility] [address] [address] [place] [address] [id number] Daja Flaherty Self - patient is the insured MEDICAL (GENERAL) HISTORY Surgical History Surgery Date(Month/Year) ORIF L Humerus
--- OUTSIDE RECORDS SUMMARY | 2025-02-04 01:12 | XMS_ITS | Patient Health Record ---
Author Organization [facility] Address [address] [facility] [address] [place], [place] [id number] Support Name Relationship Address Phone RAFAEL MCNALLY Guarantor Unknown Reason For Referral No Information Plan Of Treatment No Information
--- OUTSIDE RECORDS SUMMARY | 2025-02-04 01:12 | XMS_ITS | Clinical Summary ---
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 Gender Identity Not on file Sexual Orientation [...] of 3) 04/23/2012 02/27/2012 Covid-19 Vaccine (6 - 2024-2 6 season) 2024 01/30/2022, 10/29/2021, 03/11/2021, Additional history exists Influenza Vaccine (#1) 2024 , 03/11/2021, 01/30/2020, Additional history exists Insurance MEDICARE COMMERCIAL GENERIC MEDICARE MEDICARE COMMERCIAL GENERIC Care Teams Fundraising Sale Representative Relationship Specialty Start Date End Date Vira Fuentes PA [address] [place] [address] PCP - General Physician Bladder Changer 09/04/22 Jong Villanueva MD Consulting Physician Cardiology 06/21/21 Christopher Madsen MD [address] [facility] [address] [address] Referring Physician Gastroenterology 10/02/22
[2025-02-04 13:34] VITALS: BP 168/76; PULSE 68; RESP 18; TEMP 36.4; O2SAT 97
[2025-02-04] MEDS: LACTATED RINGERS 1,000 ML 150 ML IV CONT (13:45)
--- NOTE | 2025-02-04 13:57 | WPDANESEPPF ---
Anes - Initial Pre Proc Eval Procedure: Operation Date: 02/04/25 14:30 Proposed Procedures p Diagnostic Colonoscopy - Lonnie Leung MD Date/Time: 02/04/25 13:57 Surgeon: Lonnie Leung MD Pre Op Diagnosis: Lower abdominal pain, unspecified Patient Data Age: 79 Gender: F Height: Weight: 67.5 kg Last Vital Signs Temp 36.4 C 02/04/25 13:34 Pulse 68 02/04/25 13:34 Resp 18 02/04/25 13:34 BP 168/76 H 02/04/25 13:34 Pulse Ox 97 02/04/25 13:34 O2 Del Method Room Air 02/04/25 13:34 Allergies Allergy/AdvReac Type Severity Reaction Status Date / Time cephalothin (From [facility]) AdvReac Mild Hypotension Verified 02/04/25 13:32 codeine AdvReac Mild HYPERACTIVE Verified 02/04/25 13:32 ibuprofen AdvReac Mild Confusion Verified 02/04/25 13:32 morphine AdvReac Unknown Nausea and Verified 02/04/25 13:32 Vomiting Home Medications ?Medication ?Instructions ?Recorded ?Confirmed ?Type hydrocortisone 2.5 % topical cream 1 applic topical 01/11/24 12/23/24 History ketoconazole 2 % shampoo topical 2XW 01/11/24 12/23/24 History ketoconazole 2 % topical cream 1 applic topical 01/11/24 12/23/24 History escitalopram oxalate 20 mg tablet 20 mg PO DAILY #90 tabs 07/08/24 02/04/25 Rx (Lexapro) dicyclomine 20 mg tablet 20 mg PO QID PRN abdominal pain 1 10/23/24 01/26/25 Rx month #120 tabs nortriptyline 10 mg capsule 10 mg PO QHS 1 month #30 caps 01/09/25 02/04/25 Rx amlodipine 5 mg tablet See Rx Instructions .Route 02/02/25 02/04/25 Rx .COMPLEX #90 tabs losartan 100 mg tablet 100 mg PO DAILY #90 tabs 02/02/25 02/04/25 Rx metoprolol succinate 25 mg 25 mg PO DAILY #90 tabs 02/02/25 02/04/25 Rx tablet,extended release 24 hr Patient hx anesthesia problems: none Family hx anesthesia problems: none Results Review: All pre-operative results and documents have been reviewed as part of the pre-operative evaluation. [facility] Past Medical History Medical History Small intestinal bacterial overgrowth (SIBO) Lower abdominal pain Irritable bowel syndrome with diarrhea BMI 28.0-28.9,adult BMI 27.0-27.9,adult Abdominal pain Cigarette smoker one half pack a day or less BMI 26.0-26.9,adult Normal colonoscopy Hypertension Surgical History Surgical History History of tonsillectomy History of shoulder surgery History of bladder surgery Family History Family History Mother Hypertension Cerebrovascular accident Family history of coronary artery disease Father Tuberculosis Sibling Brain aneurysm Social History Social History Social History: yes Smoking packs per day: 0.50 Smoking cigarettes per day: 10.0 Years smoked: 50 Smoking pack-years: 25.00 Smoking status: Former smoker Tobacco type: cigarettes Second hand tobacco smoke exposure: No Smoking end date: 08/24/22 Alcohol intake: current Drinks per week: 2 Substance use: never Substance use type: does not use Living arrangements: alone Occupation/Education: retired Additional occupation/education comments: [employer] Gender identity (if verbalized by the patient): Female Spiritual care concerns: No Anes - Eval Final PreProcedure Day of Procedure 02/04/25 13:57 Patient weight: normal Heart: regular rate and rhythm Lungs: clear to auscultation Airway: Mallampati scale class II Neurological: alert and oriented Last oral intake: >/= 8 hours ASA classification: III Emergent: no Anesthetic plan: proceed Anesthesia type and monitoring: general GIVS and standard monitoring Results Review: All pre-operative results and documents have been reviewed as part of the pre-operative evaluation. Informed Consent: The patient's anesthetic plan and its attendant risks and benefits were discussed with the patient/family/POA. Questions were solicited and answers provided to the satisfaction of the patient/family/POA.
--- NOTE | 2025-02-04 14:57 | PM.IMHP ---
H&P: HPI History of Present Illness Date/Time: 02/04/25 14:57 Chief Complaint: Diarrhea-abdominal pain Narrative: This patient has been referred for a colonoscopy. She has a longstanding history of intermittent crampy abdominal pain associated with diarrhea multiple times. She has undergone extensive workup finding no definitive organic pathology. In addition there is a history of colonic polyps, last colonoscopy being a few years ago. Review of Systems Review of Systems: All systems reviewed & are unremarkable except as noted in HPI and below PMFSH Past Medical History Medical History Small intestinal bacterial overgrowth (SIBO) Lower abdominal pain Irritable bowel syndrome with diarrhea BMI 28.0-28.9,adult BMI 27.0-27.9,adult Abdominal pain Cigarette smoker one half pack a day or less BMI 26.0-26.9,adult Normal colonoscopy Hypertension Surgical History Surgical History History of tonsillectomy History of shoulder surgery History of bladder surgery Family History Family History Mother Hypertension Cerebrovascular accident Family history of coronary artery disease Father Tuberculosis Sibling Brain aneurysm Social History Social History Social History: yes Smoking packs per day: 0.50 Smoking cigarettes per day: 10.0 Years smoked: 50 Smoking pack-years: 25.00 Smoking status: Former smoker Tobacco type: cigarettes Second hand tobacco smoke exposure: No Smoking end date: 08/24/22 Alcohol intake: current Drinks per week: 2 Substance use: never Substance use type: does not use Living arrangements: alone 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 Gender identity (if verbalized by the patient): Female Spiritual care concerns: No Meds Home Medications and Allergies Home Medications ?Medication ?Instructions ?Recorded ?Confirmed ?Type hydrocortisone 2.5 % topical cream 1 applic topical 01/11/24 12/23/24 History ketoconazole 2 % shampoo topical 2XW 01/11/24 12/23/24 History ketoconazole 2 % topical cream 1 applic topical 01/11/24 12/23/24 History escitalopram oxalate 20 mg tablet 20 mg PO DAILY #90 tabs 07/08/24 02/04/25 Rx (Lexapro) dicyclomine 20 mg tablet 20 mg PO QID PRN abdominal pain 1 10/23/24 01/26/25 Rx month #120 tabs nortriptyline 10 mg capsule 10 mg PO QHS 1 month #30 caps 01/09/25 02/04/25 Rx amlodipine 5 mg tablet See Rx Instructions .Route 02/02/25 02/04/25 Rx .COMPLEX #90 tabs losartan 100 mg tablet 100 mg PO DAILY #90 tabs 02/02/25 02/04/25 Rx metoprolol succinate 25 mg 25 mg PO DAILY #90 tabs 02/02/25 02/04/25 Rx tablet,extended release 24 hr Allergies Allergy/AdvReac Type Severity Reaction Status Date / Time cephalothin (From [facility]) AdvReac Mild Hypotension Verified 02/04/25 13:32 codeine AdvReac Mild HYPERACTIVE Verified 02/04/25 13:32 ibuprofen AdvReac Mild Confusion Verified 02/04/25 13:32 morphine AdvReac Unknown Nausea and Verified 02/04/25 13:32 Vomiting Vital Signs Vital Signs - 24 hr 02/04/25 13:34 Temperature 97.6 F Pulse Rate 68 Respiratory Rate 18 Blood Pressure 168/76 H Pulse Oximetry 97 Oxygen Delivery Room Air Exam Const: General: cooperative and healthy appearing Resp: Effort & Inspection: normal respiratory effort and able to speak in complete sentences Auscultation: clear to auscultation bilaterally Cardio: Rate: regular rate Rhythm: regular rhythm GI: Inspection: normal to inspection GI Palp: No No hepatosplenomegaly present Auscultation: normal bowel sounds Rectal Exam: deferred Skin: General skin exam: normal color Psych: Appearance: grossly normal Mental Status: mental status grossly normal Assessment and Plan Assessment and plan (1) Diarrhea: Qualifiers: Diarrhea type: presumed infectious Qualified Code(s): R19.7 - Diarrhea, unspecified Code(s): R19.7 - Diarrhea, unspecified Status: Acute Assessment and Plan: The patient is deemed a good candidate for the procedure. Consent signed. Will proceed.
--- NOTE | 2025-02-04 15:13 | SUR.OPER ---
Patient into endoscopy room at 1459. When put on monitor, patient appeared to be in atrial fibrillation. 12 lead EKG confirmed atrial fibrillation. Case canceled per anesthesia.
== END 2025-02-04 15:20 | disposition home or self-care (01) ==
PROVIDERS: PCP Family Medicine; Referring Provider Nurse Practitioner Family; Visit Provider Internal Medicine Gastroenterology
PROC: 0DJD8ZZ Inspection of Lower Intestinal Tract, Via Natural or Artificial Opening Endoscopic (ICD-10-PCS; CPT 45378; principal; 2025-02-04 14:30)
DX: R19.7 Diarrhea, unspecified (principal); I48.91 Unspecified atrial fibrillation; Z53.09 Procedure and treatment not carried out because of other contraindication
CPT/HCPCS: 99215; G0463; J7120

== ENCOUNTER 2025-02-04 15:25 | Inpatient (IN) | payer MEDICARE, SELFPAY ==
[2025-02-04] VITALS (34 sets, daily range): BP systolic 87–169; BP diastolic 56–144; PULSE 92–135; RESP 13–30; TEMP 36.6; O2SAT 95–100; BMI 26.3
--- NOTE | ~2025-02-04 | XR_ITS ---
EXAMINATION: XR chest 1V portable COMPARISON: No comparisons available. HISTORY: new onset afib FINDINGS: The lungs are clear, no effusion. No pneumothorax. Heart is normal size. Mediastinal and hilar contours are within normal limits. Bony thorax no acute abnormality. Miscellaneous: None Impression: No acute cardiopulmonary abnormality. Reviewed, dictated and finalized at location P. Impression: No acute cardiopulmonary abnormality.
--- NOTE | 2025-02-04 15:34 | ECG_ITS ---
Test Date: 2025-02-04 15:48:35 Measurements Intervals [place] Rate: 120 P: 0 MS: 0 QRS: -25 QRSD: 148 T: 105 QT: 371 QTc: 525 Interpretive Statements ATRIAL FIBRILLATION WITH RAPID VENTRICULAR RESPONSE LEFT BUNDLE BRANCH BLOCK BASELINE ARTIFACT- I, II, III, AVR, AVL, AVF, V1-V6 ABNORMAL ECG Compared to ECG 09/20/2024 23:38:28 Sinus bradycardia no longer present Electronically Signed On 02-04-2025 16:08:45 CDT by Richard Fernandes D.O.
--- NOTE | 2025-02-04 17:22 | ED.ARRPALP ---
HPI - Arrhythmia/Palpitations General Chief Complaint: Arrhythmia/Palpitations Stated Complaint: irreg heart rate Time Seen by Provider: 02/04/25 16:52 Source: patient and family Mode of arrival: ambulatory Limitations: no limitations History of Present Illness HPI narrative: Patient (alphonso Irvin-nikita) presents after being found to be in atrial fibrillation with rapid ventricular response. She was noted to have an irregular heart rate with elevated rate while in the preop area of the gastroenterology lab. She had undergone bowel prep and pending colonoscopy this morning for issues with abdominal cramps and diarrhea but this was terminated/did not proceed given her heart rate. No history of atrial fibrillation diagnosis. Patient has otherwise been asymptomatic she denies any feelings of fatigue, palpitations, shortness of breath, chest pain. She denies any lightheadedness or dizziness. Her PCP is Vira Salas with Dr Alexis's office. She had been having some issues with her blood pressure as she had been hypotensive and does her blood pressure medications were changed approximately 6 months ago to taking the same medications but instead 2 in the morning (losartan & metoprolol) and 1 at night (amlodipine). She has never seen a any commodity sales deliverer. Dr. Leung was to perform the colonoscopy; had previouly seen Silvia the [facility] in the office (and Dr Madsen prior to that). Not usually on oxygen. No history of diabetes mellitus, heart failure, GI bleed. Not on anticoagulation. Related Data Home Medications ?Medication ?Instructions ?Recorded ?Confirmed ?Last Taken ?Type hydrocortisone 2.5 % topical cream 1 applic topical 01/11/24 12/23/24 Unknown History ketoconazole 2 % shampoo topical 2XW 01/11/24 12/23/24 Unknown History ketoconazole 2 % topical cream 1 applic topical 01/11/24 12/23/24 Unknown History Allergies Allergy/AdvReac Type Severity Reaction Status Date / Time cephalothin (From [facility]) AdvReac Mild Hypotension Verified 02/04/25 13:32 codeine AdvReac Mild HYPERACTIVE Verified 02/04/25 13:32 ibuprofen AdvReac Mild Confusion Verified 02/04/25 13:32 morphine AdvReac Unknown Nausea and Verified 02/04/25 13:32 Vomiting PMFSH Past Medical History Medical History Small intestinal bacterial overgrowth (SIBO) Lower abdominal pain Irritable bowel syndrome with diarrhea BMI 28.0-28.9,adult BMI 27.0-27.9,adult Abdominal pain Cigarette smoker one half pack a day or less BMI 26.0-26.9,adult Normal colonoscopy Hypertension Surgical History Surgical History History of tonsillectomy History of shoulder surgery History of bladder surgery Family History Family History Mother Hypertension Cerebrovascular accident Family history of coronary artery disease Father Tuberculosis Sibling Brain aneurysm Social History Social History Social History: yes Smoking packs per day: 0.50 Smoking cigarettes per day: 10.0 Years smoked: 50 Smoking pack-years: 25.00 Smoking status: Former smoker Tobacco type: cigarettes Second hand tobacco smoke exposure: No Smoking end date: 08/24/22 Alcohol intake: current Drinks per week: 2 Substance use: never Substance use type: does not use Living arrangements: alone 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 HEAD: Normocephalic, atraumatic. EYES: Non injected, non icteric ENT: Nares clear, no rhinorrhea or epistaxis. Gross auditory acuity intact. NECK: Supple. No meningismus. CHEST: Speaking in full sentences. No respiratory distress. HEART: IRRegularly irregular rate and rhythm. . ABDOMEN: Soft, nondistended. No rigidity or guarding. Not peritoneal EXTREMITIES: Normal range of motion. No bilateral lower extremity edema. SKIN: Warm, dry, no rash. NEURO: No focal deficits. Alert and oriented. Answering questions. Following commands. Normal speech without aphasia or dysarthria. PSYCH: Normal mood and affect. Course Vital Signs Vital signs: Vital Signs Pulse Oximetry 100 02/04/25 15:33 Temperature 97.9 F 02/04/25 15:35 Pulse Rate 123 H 02/04/25 19:31 Respiratory Rate 20 02/04/25 19:31 Blood Pressure 87/56 L 02/04/25 19:31 Pulse Oximetry 98 02/04/25 19:00 Oxygen Delivery Nasal Cannula 02/04/25 15:35 Oxygen Flow Rate 2 02/04/25 15:35 MDM - Arrhythmia/Palpitations MDM Narrative Medical decision making narrative: Patient presents after being found to be in atrial fibrillation with rapid ventricular response while in the preop area of the gastroenterology suite pending colonoscopy today. No history of AFib diagnosis. In the emergency department she is afebrile with a heart rate of 120 and an elevated diastolic blood pressure. Patient is saturating appropriately on 2 L nasal cannula which had been placed in GI preop area. No history of wearing oxygen and I did remove this during my assessment of the patient which was lengthy and patient did not desaturate, maintaining her saturations greater than 96% throughout. DIFFERENTIAL DIAGNOSIS While I suspect this diagnosis is due to age, she has a history of hypertension and cannot exclude other etiologies such as underlying cardiopulmonary disease, heart failure, valvular disease, hyperthyroidism, sepsis, electrolyte abnormalities. An IV was placed and the patient was put on cardiac and pulse oximetry monitors. ECG showed an irregularly irregular narrow-complex tachycardia without associated P-waves, consistent with the diagnosis of Afib with RVR. Patient's afib becomes generally rate controlled for awhile, 90s-110s and only occasionally 120s - 130s upon multiple reviews of the cardiac monitoring, after admission she is noted to be in the 120s-130s; otherwise hemodynamically stable thus early priority in management was to slow the ventricular rate metoprolol given this is a medication she is already on. IVP 2.5mg over 2 minutes initially ordered. This is a new diagnosis. Patient is otherwise asymptomatic but will need to be admitted for this diagnosis. BNP is elevated, no previous for comparison and no history of heart failure. Patient does not appear volume overloaded both on exam and chest x-ray. Normocytic anemia, stable. CHADS VASc score calculated as risk stratification for determining stroke risk. 4?points Stroke risk was 4.8% per year in >90,000 patients (the [place] Atrial Fibrillation Cohort Study) and 6.7% risk of stroke/TIA/systemic embolism. Anticoagulation should be started based on this however: HAS-BLED 2?points Risk was 4.1% in one validation study (Lip 2011) and 1.88 bleeds per 100 patient-years in another validation study (Pisters 2010). Anticoagulation can be considered, however patient does have moderate risk for major bleeding (~2/100 patient-years). == Discussed with cardiopulmonary physical therapist hospitalist Antonia ISRAEL. Will be IMU admission. Differential Diagnosis Differential diagnosis: Likely palpitations, anxiety, sinus tachycardia, artial fibrillation, artial flutter, ventricular premature beats, supraventricular tachycardia, ventricular tachycardia and WPW Lab Data Attestation: I reviewed the patient's lab results. 02/04/25 17:16 02/04/25 17:16 Labs: Lab Results 02/04/25 02/04/25 Range/Units 17:15 17:16 WBC 7.4 (4.5-10.0) K/mm3 RBC 4.13 L (4.2-5.4) M/mm3 Hgb 11.7 L (12.0-15.0) g/dL Hct 35.8 L (37.0-47.0) % MCV 86.7 (80-100) fl MCH 28.3 (26-34) pg MCHC 32.7 (32-36) g/dl RDW 13.3 (11.5-14.5) % Plt Count 315 (150-375) k/mm3 MPV 10.1 (7.4-10.4) fl Immature Gran % (Auto) 0.1 (0-0.5) % Neut % (Auto) 65.6 (45.5-73.1) % Lymph % (Auto) 24.5 (18.3-44.2) % [place] % (Auto) 7.9 (2.6-8.5) % Eos % (Auto) 1.5 (0-4.4) % Baso % (Auto) 0.4 (0.2-1.2) % Lymph # (Auto) 1.82 (0.9-3.2) K/mm3 [place] # (Auto) 0.6 (0.1-0.6) K/mm3 Eos # (Auto) 0.1 (0-0.3) K/mm3 Baso # (Auto) 0.0 (0.0-0.1) K/mm3 Abs Immat Gran (auto) 0.01 (0.00-0.031) K/mm3 Absolute Neuts (auto) 4.9 (1.3-6.7) K/mm3 Absolute Nucleated RBC 0.000 (0.0-0.012) K/mm3 Nucleated RBC % 0.0 (0.0-0.2) % PT 13.5 (11.1-14.7) Seconds INR 1.0 APTT 25.8 (22.3-36.8) Seconds Sodium 135 L (137-145) mmol/L Potassium 3.7 (3.4-5.0) mmol/L Chloride 101 (98-107) mmol/L Carbon Dioxide 27 (22-30) mmol/L Anion Gap 7 (4-12) mmol/L BUN 4 L D (7-17) mg/dL Creatinine 0.46 L (0.7-1.0) mg/dL Estim Creat Clear Calc 71 ml/min Estimated GFR > 60 (59 - ) Glucose 109 (65-110) mg/dL Calcium 9.0 (8.4-10.2) mg/dL Magnesium 2.1 (1.6-2.3) mg/dL Total Bilirubin 0.6 (0.2-1.3) mg/dL AST 23 (14-36) U/L ALT 16 (6-35) U/L Alkaline Phosphatase 151 H (38-126) U/L NT-Pro-B Natriuret Pep 3550 H (19.9-100) pg/mL Total Protein 7.7 (6.3-8.2) g/dL Albumin 4.0 (3.5-5.1) g/dL TSH 0.665 (0.465-4.680) uIU/mL Imaging Data Radiologist's impression: Impressions Chest X-Ray 02/04/25 17:12 Impression: No acute cardiopulmonary abnormality. ECG Data EKG #1: Attestation: I personally reviewed and interpreted this ECG as follows: ECG completion date: 02/04/25 ECG completion time: 15:48 Prior ECG tracings: available for review (EKG from 09/20/2024 showed a sinus bradycardia with first-degree AV block) Interpretation: Atrial fibrillation with rapid ventricular response at a rate of 120 beats per minute. QRS 148. QT/QTC 371/525. Good R-wave progression across the precordial leads. Baseline artifact sick limits full interpretation however there do not appear to be T-wave inversions. Discharge Plan Discharge Clinical Impression: Normocytic anemia, Atrial fibrillation with rapid ventricular response, New onset atrial fibrillation, Elevated brain natriuretic peptide (BNP) level Patient Disposition: Still a Patient Condition: Stable
[2025-02-04 17:28] LABS: Hematocrit 35.8 % (37.0-47.0); Hemoglobin 11.7 g/dL (12.0-15.0); Immature Granulocyte Percent A 0.1 % (0-0.5); Lymphocytes Absolute Auto 1.82 K/mm3 (0.9-3.2); Mean Corpuscular HGB Conc 32.7 g/dl (32-36); Mean Corpuscular Hemoglobin 28.3 pg (26-34); Mean Corpuscular Volume 86.7 fl (80-100); Nucleated Red Blood Cells Absolute Auto 0.000 K/mm3 (0.0-0.012); Nucleated Red Blood Cells Perc 0.0 % (0.0-0.2); Platelet Count Result 315 k/mm3 (150-375); Red Blood Count 4.13 M/mm3 (4.2-5.4); White Blood Count 7.4 K/mm3 (4.5-10.0)
--- OUTSIDE RECORDS SUMMARY | 2025-02-04 17:28 | XMS_ITS | Patient Health Record ---
Author Organization [facility] Address [address] [place], [place] [id number] Care Team Providers Care Relay Tester Helper Name Role Phone AVIS Santa Unavailable [phone] Chely Bustos Unavailable Unavailable Reason For Referral No Information Plan Of Treatment No Information Insurance Providers Payer Name Payer Address Payer Phone Subscriber Number Group Number Insured Name Patient Relationship to Insured Coverage Start Date Coverage End Date Medicare Part B [place] [address] [place] [address] [id number] RAFAEL LEES Self - patient is the insured [facility] [address] [address] [place], [place] [address] [id number] RAFAEL LEES Self - patient is the insured
--- OUTSIDE RECORDS SUMMARY | 2025-02-04 17:29 | XMS_ITS | Clinical Summary ---
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
--- OUTSIDE RECORDS SUMMARY | 2025-02-04 17:29 | XMS_ITS | Clinical Summary ---
Author Organization [facility] Address [address] [place] [address] [place] [address] Care Team Providers Care Dermatopathologist Name Role Phone Guilherme Alexis MD Primary Care Provider [phone] Source Comments [facility],non-owned Affiliates and Associated Physician Practices is amultiple site organization consisting of ambulatory clinics and hospital sitesin [place], [place], [place] and [place]. This disclosure is being madepursuant to the Care Everywhere program and may not contain all information available regarding this patient. Last updated 18.[facility] Allergies Active Allergy Reactions Criticality Noted Date [...] MEDICARE COMMERCIAL GENERIC MEDICARE MEDICARE Care Teams Dermatopathologist Relationship Specialty Start Date End Date Guilherme Alexis MD [address] [place] [address] PCP - General 03/10/21
[2025-02-04 17:37] LABS: Alanine Aminotransferase 16 U/L (6-35); Albumin Level 4.0 g/dL (3.5-5.1); Alkaline Phosphatase 151 U/L (38-126); Anion Gap 7 mmol/L (4-12); Aspartate Amino Transferase 23 U/L (14-36); Bilirubin,Total 0.6 mg/dL (0.2-1.3); Blood Urea Nitrogen 4 mg/dL (7-17); Calcium 9.0 mg/dL (8.4-10.2); Carbon Dioxide 27 mmol/L (22-30); Chloride 101 mmol/L (98-107); Estimated CRCL calculation 71 ml/min; Estimated Glomerular Filt Rate > 60; Glucose 109 mg/dL (65-110); Potassium 3.7 mmol/L (3.4-5.0); Sodium 135 mmol/L (137-145); Total Protein 7.7 g/dL (6.3-8.2)
[2025-02-04 17:38] LABS: INR 1.0; Prothrombin Time 13.5 Seconds (11.1-14.7)
[2025-02-04 17:39] LABS: Partial Thromboplastin Time 25.8 Seconds (22.3-36.8)
[2025-02-04 17:47] LABS: NT Pro B Type Natriuretic Pept 3550 pg/mL (19.9-100)
[2025-02-04 18:08] LABS: Thyroid Stimulating Hormone 0.665 uIU/mL (0.465-4.680)
[2025-02-04 18:17] LABS: Magnesium 2.1 mg/dL (1.6-2.3)
--- OUTSIDE RECORDS SUMMARY | 2025-02-04 18:27 | XMS_ITS | Clinical Summary ---
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
--- OUTSIDE RECORDS SUMMARY | 2025-02-04 18:27 | XMS_ITS | Clinical Summary ---
Author Organization [facility] Address [address] [place] [address] [place] [address] Care Team Providers Care Alterations Expert Name Role Phone Guilherme Alexis MD Primary Care Provider [phone] Source Comments [facility],non-owned Affiliates and Associated Physician Practices is amultiple site organization consisting of ambulatory clinics and hospital sitesin [place], [place], [place] and [place]. This disclosure is being madepursuant to the Care Everywhere program and may not contain all information available regarding this patient. Last updated 18.[facility] Allergies Active Allergy Reactions Criticality Noted Date [...] MEDICARE COMMERCIAL GENERIC MEDICARE MEDICARE Care Teams Alterations Expert Relationship Specialty Start Date End Date Guilherme Alexis MD [address] [place] [address] PCP - General 03/10/21
[2025-02-04] MEDS: SODIUM CHLORIDE 0.9% IV 500 ML 999 ML IV CONT (18:28)
[2025-02-04] MEDS: METOPROLOL TARTRATE INJ 5 MG/5 ML VIAL 2.5 MG IV PUSH (18:29)
--- NOTE | 2025-02-04 22:24 | PM.IMHP ---
H&P: HPI History of Present Illness Date/Time: 02/04/25 22:24 Chief Complaint: Arrhythmia Narrative: This is an 79-year-old female patient who has a history of irritable bowel syndrome with diarrhea as well as hypertension. The patient was in the GI lab today for a colonoscopy. The patient had prepped during the night for the colonoscopy. While in the gastroenterology lab it was noticed that she had an elevated heart rate. The patient has been having abdominal cramps and diarrhea today. The GI procedure was terminated today given her heart rate. She has no prior history of any arrhythmia. She stated that she recently visited her primary care doctor within the last 2 weeks and no irregular heart rate was noticed then. She denies any palpitations, chest pain, shortness a breath, or lightheadedness. Patient states she had her blood pressure medications changed approximately 6 months ago. Patient denies any GI bleed. She stated that she has had multiple imaging and stool studies in the past. She is not on any anticoagulation. The patient was found to be in AFib with rapid ventricular response in the preop area of the gastroenterology suite. In the emergency room she was found to be in atrial fibrillation with a heart rate of 120 and an elevated diastolic blood pressure. Patient's Derek Vasc score was noted to be 4 in the emergency room and has bled score of 2 points. It was noted that anticoagulation can be considered however patient does have moderate risk for major bleeding. The patient was given 2.5 mg of metoprolol and IV fluids in the emergency room. Abnormal labs include a sodium level of 135 and BNP of 3550. Cardiology has been consulted from the emergency room. Patient is being admitted to observation status on the date of service of 02/04/2025 Review of Systems Constitutional: Constitutional: Reports as per HPI and Reports no additional constitutional complaints Eyes: Eyes: Reports as per HPI and Reports no additional eye complaints ENT: Reports system reviewed and no additional complaints, except as documented and Reports Normal hearing present Cardiovascular: Cardiovascular: Reports no additional cardiovascular complaints Respiratory: Respiratory: Reports as per HPI and Reports no additional respiratory complaints Gastrointestinal: Gastrointestinal: Reports as per HPI and Reports no additional gastrointestinal complaints Genitourinary: Genitourinary: Reports no additional female genitourinary complaints Musculoskeletal: Musculoskeletal: Reports no additional musculoskeletal complaints Integumentary/Breasts: Skin/Breast: Reports system reviewed and no additional complaints, except as docu Neurologic: Reports system reviewed and no additional complaints, except as documented and Reports Normal hearing present Psychiatric: Psychiatric: Reports no additional psychiatric complaints and Reports as per HPI Hematologic/Lymphatic: Hematologic/Lymphatic: Reports no additional hematologic/lymphatic complaints Allergic/Immunologic: Allergic/Immunologic: Reports no additional allergic/immunologic complaints [facility] Past Medical History Medical History Menopausal symptom Small intestinal bacterial overgrowth (SIBO) Lower abdominal pain Irritable bowel syndrome with diarrhea BMI 28.0-28.9,adult BMI 27.0-27.9,adult Abdominal pain Cigarette smoker one half pack a day or less BMI 26.0-26.9,adult Normal colonoscopy Hypertension Surgical History Surgical History H/O dilation and curettage X2 History of tonsillectomy History of shoulder surgery History of bladder surgery Family History Family History Mother Hypertension Cerebrovascular accident Family history of coronary artery disease Father Tuberculosis Sibling Brain aneurysm Social History Social History Social History: She is and has 2 children. She is retired. She desires to have her daughter is the power family law attorney. She has 2 children a daughter and a son. Code status: Full code Smoking packs per day: 0.50 Smoking cigarettes per day: 10.0 Years smoked: 50 Smoking pack-years: 25.00 Smoking status: Former smoker Tobacco type: cigarettes Second hand tobacco smoke exposure: No Smoking end date: 01/30/23 Alcohol intake: current Drinks per week: 2 Substance use: never Substance use type: does not use Lack of Transportation: No Lack of Food: Never True Current Housing: I Have Housing Concerned About Future Housing: No Difficulty Paying Gas/Electric Bills: No Difficulty Paying for Meds: No Currently Unemployed: No Education: High School Diploma/GED Difficulty w/ Childcare or Family Care: No Living arrangements: alone 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 Gender identity (if verbalized by the patient): Female Spiritual care concerns: No Meds Home Medications and Allergies Home Medications ?Medication ?Instructions ?Recorded ?Confirmed ?Type hydrocortisone 2.5 % topical cream 1 applic topical PRN PRN 01/11/24 02/04/25 History dermatology ketoconazole 2 % shampoo 1 applic topical 2XW 01/11/24 02/04/25 History ketoconazole 2 % topical cream 1 applic topical PRN 01/11/24 02/04/25 History escitalopram oxalate 20 mg tablet 20 mg PO DAILY #90 tabs 07/08/24 02/04/25 Rx (Lexapro) dicyclomine 20 mg tablet 20 mg PO QID PRN abdominal pain 1 10/23/24 02/04/25 Rx month #120 tabs nortriptyline 10 mg capsule 10 mg PO QHS 1 month #30 caps 01/09/25 02/04/25 Rx amlodipine 5 mg tablet See Rx Instructions .Route 02/02/25 02/04/25 Rx .COMPLEX #90 tabs losartan 100 mg tablet 100 mg PO DAILY #90 tabs 02/02/25 02/04/25 Rx metoprolol succinate 25 mg 25 mg PO DAILY #90 tabs 02/02/25 02/04/25 Rx tablet,extended release 24 hr Allergies Allergy/AdvReac Type Severity Reaction Status Date / Time cephalothin (From Seffin) AdvReac Mild Hypotension Verified 02/04/25 20:38 codeine AdvReac Mild HYPERACTIVE Verified 02/04/25 20:38 ibuprofen AdvReac Mild Confusion Verified 02/04/25 20:38 acetaminophen (From Percocet) AdvReac Unknown Unknown Verified 02/04/25 20:38 morphine AdvReac Unknown Nausea and Verified 02/04/25 20:38 Vomiting oxycodone (From Percocet) AdvReac Unknown Unknown Verified 02/04/25 20:38 Vital Signs Vital Signs - 24 hr 02/04/25 15:33 02/04/25 15:35 02/04/25 15:38 Temperature 97.9 F Pulse Rate 120 H 123 H Respiratory Rate 14 Blood Pressure 129/98 H Pulse Oximetry 100 100 Oxygen Delivery Nasal Cannula Oxygen Flow Rate 2 02/04/25 15:45 02/04/25 15:46 02/04/25 16:00 Temperature Pulse Rate 120 H 109 H 103 H Respiratory Rate 17 17 15 Blood Pressure 165/91 H Pulse Oximetry 96 100 100 Oxygen Delivery Oxygen Flow Rate 02/04/25 16:15 02/04/25 16:30 02/04/25 16:31 Temperature Pulse Rate 108 H 106 H 121 H Respiratory Rate 17 25 H 20 Blood Pressure Pulse Oximetry 100 99 97 Oxygen Delivery Oxygen Flow Rate 02/04/25 16:31 02/04/25 16:38 02/04/25 16:45 Temperature Pulse Rate 118 H 113 H 102 H Respiratory Rate 30 H 16 16 Blood Pressure 169/144 H 152/85 H Pulse Oximetry 100 99 Oxygen Delivery Oxygen Flow Rate 02/04/25 17:00 02/04/25 17:15 02/04/25 17:30 Temperature Pulse Rate 124 H 111 H 114 H Respiratory Rate 18 20 16 Blood Pressure Pulse Oximetry 98 100 95 Oxygen Delivery Oxygen Flow Rate 02/04/25 17:45 02/04/25 18:00 02/04/25 18:01 Temperature Pulse Rate 119 H 109 H 118 H Respiratory Rate 18 15 21 H Blood Pressure 154/84 H Pulse Oximetry 96 97 95 Oxygen Delivery Oxygen Flow Rate 02/04/25 18:04 02/04/25 18:15 02/04/25 18:29 Temperature Pulse Rate 115 H 135 H 115 H Respiratory Rate 17 Blood Pressure 154/84 H Pulse Oximetry 95 96 Oxygen Delivery Oxygen Flow Rate 02/04/25 18:30 02/04/25 18:39 02/04/25 18:45 Temperature Pulse Rate 113 H 106 H 127 H Respiratory Rate 15 18 17 Blood Pressure 154/84 H Pulse Oximetry 96 97 100 Oxygen Delivery Oxygen Flow Rate 02/04/25 18:46 02/04/25 19:00 02/04/25 19:15 Temperature Pulse Rate 114 H 109 H 103 H Respiratory Rate 16 23 H 28 H Blood Pressure 144/82 H Pulse Oximetry 95 98 Oxygen Delivery Oxygen Flow Rate 02/04/25 19:30 02/04/25 19:31 02/04/25 19:32 Temperature Pulse Rate 135 H 123 H 122 H Respiratory Rate 23 H 20 13 Blood Pressure 87/56 L Pulse Oximetry Oxygen Delivery Oxygen Flow Rate 02/04/25 19:45 02/04/25 19:56 02/04/25 20:00 Temperature Pulse Rate 113 H 124 H 102 H Respiratory Rate 18 19 18 Blood Pressure 147/82 H Pulse Oximetry 99 98 Oxygen Delivery Oxygen Flow Rate Exam Const: General: cooperative, healthy appearing, comfortable, no acute distress, well developed, awake, Physically active, average body habitus and well nourished Nutritional Appearance: average body habitus and well nourished Orientation/consciousness: oriented to person, oriented to place, oriented to time and patient oriented x3 Limitations: no limitations HENMT: Head: normal to inspection, No palpable skull fracture present, normocephalic, atraumatic and abrasion Ears: hearing grossly normal bilaterally Eyes: General: appearance normal, both eyes and all related structures Alignment and Position: alignment normal Periorbital: periorbital findings normal Eyelids: eyelids normal Neck: Neck: normal visual inspection, full ROM and no lymphadenopathy Chest: Chest palpation & inspection: normal inspection of the chest Resp: Effort & Inspection: normal respiratory effort Auscultation: clear to auscultation bilaterally Cardio: Palpation: normal PMI Rate: tachycardic Rhythm: abnormal rhythm irregularly irregular GI: Inspection: normal to inspection Auscultation: normal bowel sounds Rectal Exam: deferred Back/Spine/Pelvis: Back: no CVA tenderness Skin: General skin exam: normal color Lesions: no lesions Rashes: no rashes Trauma: no lacerations or abrasions Wounds: no wounds Hair: normal Nails: normal Neuro: General: oriented to person, oriented to place, oriented to time and patient oriented x3 Cranial nerves: Yes Equal, round and reactive pupils present and Yes Normal hearing present Cognition (Neuro): normal cognition Speech: normal speech Gait exam (Neuro): Normal gait present Motor exam (neuro): 5/5 motor strength present throughout Sensory Exam: normal sensation Extrem: General: normal to inspection Right upper extremity: normal to inspection and shoulder/upper arm Left upper extremity: normal to inspection and shoulder/upper arm Right lower extremity: normal to inspection Left lower extremity: normal to inspection Psych: Appearance: grossly normal Mental Status: mental status grossly normal Speech and movement: Normal speech and movement present Affect: normal affect Attitude: cooperative Thought process: Normal thought process present Thought content: Yes Normal thought content present Insight: Good insight present (Psych) Judgement: Good judgement present (Psych) H&P: Results Labs Labs: Short CBC 02/04/25 Range/Units 17:16 WBC 7.4 (4.5-10.0) K/mm3 Hgb 11.7 L (12.0-15.0) g/dL Hct 35.8 L (37.0-47.0) % Plt Count 315 (150-375) k/mm3 BMP 02/04/25 17:16 Sodium 135 L Potassium 3.7 Chloride 101 Carbon Dioxide 27 BUN 4 L D Creatinine 0.46 L Glucose 109 Calcium 9.0 Liver Function 02/04/25 Range/Units 17:16 Total Bilirubin 0.6 (0.2-1.3) mg/dL AST 23 (14-36) U/L ALT 16 (6-35) U/L Alkaline Phosphatase 151 H (38-126) U/L Albumin 4.0 (3.5-5.1) g/dL ECG Interpretation: Test Date: 2025-02-04 15:48:35 Measurements Intervals Welch Rate: 120 P: 0 NM: 0 QRS: -25 QRSD: 148 T: 105 QT: 371 QTc: 525 Interpretive Statements ATRIAL FIBRILLATION WITH RAPID VENTRICULAR RESPONSE LEFT BUNDLE BRANCH BLOCK BASELINE ARTIFACT- I, II, III, AVR, AVL, AVF, V1-V6 ABNORMAL ECG Compared to ECG 09/20/2024 23:38:28 Sinus bradycardia no longer present Imaging Chest x-ray: Radiologist's impression: Impressions Chest X-Ray 02/04/25 17:12 Impression: No acute cardiopulmonary abnormality. Assessment and Plan Assessment and plan (1) New onset atrial fibrillation: Code(s): I48.91 - Unspecified atrial fibrillation Status: Acute Assessment and Plan: -the patient stated that she saw her primary care physician approximately 2 weeks ago and no irregular heart rate was noticed at that time. She has no prior history of AFib -cardiology consult with greatly be appreciated for further evaluation the patient and further recommendations. -patient's Derek Vasc score is 4 and her has bled is 2. Patient denies having any blood in her stool and stated that she has had many stool specimens checked. No active bleeding is noted. Denies any GI bleed. -her blood count is within normal limits. At this time I will proceed with apixaban. -I am holding her amlodipine for now and doubling her metoprolol. -an echo has been ordered. (2) Hypertension: Code(s): I10 - Essential (primary) hypertension Status: Acute Assessment and Plan: -amlodipine is on hold at this time. May consider adding if blood pressure allows -metoprolol has been changed to twice a day. -blood pressure is currently 147/82. -current heart rate is 102. (3) Elevated brain natriuretic peptide (BNP) level: Code(s): R79.89 - Other specified abnormal findings of blood chemistry Status: Acute Assessment and Plan: -chest x-ray was negative. -an echo has been ordered. Plan The patient stated that she is taking Lexapro for hot flashes. We will continue that as well. However caution with giving Zofran Lexapro together it can prolong the QT. Quality VTE Prophylaxis VTE prophylaxis: pharmacologic ordered
[2025-02-04] MEDS: NORTRIPTYLINE HCL 10 MG CAPSULE PO (23:19)
[2025-02-04] MEDS: APIXABAN 5 MG TABLET PO (23:19)
[2025-02-05] VITALS (19 sets, daily range): BP systolic 122–149; BP diastolic 69–96; PULSE 78–103; RESP 14–16; TEMP 36.5–36.6; O2SAT 96–100
--- NOTE | 2025-02-05 | ECHO_ITS ---
Patient Info Name: Daja Mckinley Age: 79 years : 1945 Gender: Female Ht: 62 in Wt: 147 lbs BSA: 1.73 m2 HR: 90 bpm BP: 133 / 69 mmHg Heart Rhythm: Atrial Fibrillation Technical Quality: Fair Exam Date: 02/05/2025 9:12 AM Patient Status: I Admit Date: 02/04/2025 Exam Type: CA echo dop color flow w con Complete two-dimensional, color flow and Doppler transthoracic echocardiogram is performed with contrast to opacify the left ventricle and to improve the deliniation of the left ventricle endocardial borders. Staff Referring Physician: Mae Pearson Take Away Man: Mani Pereyra III Attending Provider: Benito Ibarra MD Contrast/Agitated Saline Contrast/Ag. Saline: Definity Amount: 2.00 ml Administered By: Mani Pereyra III Existing IV Access: Yes IV Access Condition: patent with no signs of infiltration Summary 1. There is normal biventricular size and systolic function. 2. There is mild biatrial enlargement. 3. There are no significant valvular abnormalities. Left Ventricle The left ventricle is normal in size and systolic function. The left ventricular ejection fraction is visually estimated to be 50-55%. Right Ventricle The right ventricle is normal in size and systolic function. Left Atria Left atrium is mildly dilated. Right Atria The right atrium is mildly dilated. Atrial Septum The atrial septum is not well visualized. Aortic Valve The aortic valve is trileaflet and opens well. There is aortic valve sclerosis. There is no aortic regurgitation. Mitral Valve The mitral valve leaflets open well. There is trace mitral regurgitation. Tricuspid Valve The tricuspid valve is normal. There is trace tricuspid regurgitation. Pericardium/Pleural Pericardium is normal in appearance with no evidence for significant pericardial effusion. Inferior Vena Cava Normal inferior vena cava with >50% collapse upon inspiration consistent with normal right atrial pressure, 3 mmHg. Aorta The aortic root at the level of the sinus of Valsalva measures 2.9 cm in diameter. Left Ventricular Outflow Tract Name Value Normal LVOT 2D LVOT Diameter 2.0 cm LVOT Doppler LVOT Peak Velocity 82 cm/s LVOT Peak Gradient 3 mmHg LVOT Mean Gradient 1 mmHg LVOT VTI 17 cm LVOT VTI/AV VTI Ratio 0.8 LVOT Stroke Volume 54 ml LVOT CO 4.3 l/min LVOT CI 2.5 l/min/m2 Pulmonic Valve Name Value Normal PV Doppler PV Peak Velocity 95 cm/s PV Peak Gradient 4 mmHg PV Mean Gradient 1 mmHg Mitral Valve Name Value Normal MV Doppler MV Peak Gradient 4 mmHg MV Mean Gradient 2 mmHg MV Area (Cont Eq VTI) 2.8 cm2 MV Regurgitation Doppler MR Peak Gradient 26 mmHg MV Diastolic Function MV E Peak Velocity 106 cm/s MV A Peak Velocity 34 cm/s MV E/A 3.1 MV Decel Time (PW) 131 ms MV Annular TDI MV E/e' (Septal) 15.9 MV E/e' (Lateral) 11.8 MV E/e' (Average) 13.8 Tricuspid Valve Name Value Normal TV Regurgitation Doppler TR Peak Velocity 259 cm/s TR Peak Gradient 27 mmHg Estimated PAP/RSVP RA Pressure 3 mmHg <=5 PA Systolic Pressure 30 mmHg <36 RV Systolic Pressure 30 mmHg <36 TV Annular TDI TV Lateral Kati s' Velocity 13.2 cm/s >=9.5 Aortic Valve Name Value Normal AV Doppler AV Peak Velocity 132 cm/s AV Peak Gradient 7 mmHg AV Mean Gradient 3 mmHg AV VTI 22 cm AV Area (Cont Eq VTI) 2.5 cm2 >=3.0 AV Area (Cont Eq Javier) 2.0 cm2 AV DI (Javier) 0.62 AV Regurgitation 2D LVOT Area 3.2 cm2 Ventricles Name Value Normal LV Dimensions 2D/MM IVS Diastolic Thickness (2D) 1.2 cm 0.6-1.0 LVID Diastole (2D) 3.4 cm 3.8-5.2 LVIW Diastolic Thickness (2D) 0.9 cm 0.6-0.9 LVID Systole (2D) 2.6 cm 2.2-3.5 LVOT Diameter 2.0 cm LV Mass (2D Cubed) 100.15 g 67.00-162.00 LV Mass Index (2D Cubed) 58 g/m2 43-95 Relative Wall Thickness (2D) 0.50 <=0.42 LV Fractional Shortening/Ejection Fraction 2D/MM LV Fractional Shortening (2D) 23 % 27-45 LV EF (2D Teichholz) 47 % LV Diastolic Volume (4C MOD) 65 ml LV EF (4C MOD) 52 % LV Diastolic Volume (2C MOD) 87 ml LV EF (2C MOD) 62 % LV Diastolic Volume (BP MOD) 76 ml 46-106 LV Diastolic Volume Index (BP MOD) 44 ml/m2 29-61 LV Systolic Volume (BP MOD) 32 ml 14-42 LV Systolic Volume Index (BP MOD) 18 ml/m2 8-24 LV EF (BP MOD) 58 % 54-74 LV Diastolic Length (4C) 6.1 cm LV Systolic Length (4C) 6.0 cm LV Stroke Volume (4C MOD) 34 ml Atria Name Value Normal LA Dimensions LA Volume (4C A-L) 67 ml LA Volume (BP A-L) 67 ml RA Dimensions RA Systolic Major Tererro Length (4C) 4.5 cm 2.2-2.8 RA Area (4C) 15.1 cm2 <=18.0 Report Signatures
[2025-02-05 03:21] LABS: Hematocrit 33.8 % (37.0-47.0); Hemoglobin 11.0 g/dL (12.0-15.0); Mean Corpuscular HGB Conc 32.5 g/dl (32-36); Mean Corpuscular Hemoglobin 28.5 pg (26-34); Mean Corpuscular Volume 87.6 fl (80-100); Platelet Count Result 303 k/mm3 (150-375); Red Blood Count 3.86 M/mm3 (4.2-5.4); White Blood Count 8.7 K/mm3 (4.5-10.0)
[2025-02-05 03:44] LABS: Anion Gap 5 mmol/L (4-12); Blood Urea Nitrogen 8 mg/dL (7-17); Calcium 8.6 mg/dL (8.4-10.2); Carbon Dioxide 29 mmol/L (22-30); Chloride 98 mmol/L (98-107); Cholesterol 181 mg/dL (0-200); Estimated CRCL calculation 70 ml/min; Estimated Glomerular Filt Rate > 60; Glucose 100 mg/dL (65-110); HDL Direct 66 mg/dL; Potassium 3.6 mmol/L (3.4-5.0); Sodium 132 mmol/L (137-145); Triglycerides 61 mg/dL (<150)
[2025-02-05 03:59] LABS: Thyroid Stimulating Hormone Reflex 0.630 uIU/mL (0.465-4.68)
--- NOTE | 2025-02-05 07:36 | PM.IMPN ---
Progress Note: A&P Assessment and Plan (1) New onset atrial fibrillation: Code(s): I48.91 - Unspecified atrial fibrillation Status: Acute Assessment and Plan: In ED found to be in afib HR 120 on EKG, given 2.5 mg of metoprolol and IV fluids in the emergency room. - TSH ordered to rule out metabolic cause for tachyarrhythmia. WNL. - Medication: metoprolol 25 mg BID, dose frequency doubled from home - Chadsvasc Score 4 (age, female, HTN) and HASBLED 2 Anticoagulation: Eliquis 5 mg BID - Echo ordered - Telemetry - Cardiology consulted Since she is already rate controlled, we will proceed with rate control strategy with plan to attempt cardioversion as outpatient after she has been anticoagulated for 4-6 weeks. She had a 4.5 second pause this morning on telemetry with associated dizziness. Monitor. Continue metoprolol, can shift to Toprol XL 50 mg daily at discharge for dosing convenience Continue Eliquis 5 mg b.i.d. Check ApneaLink Continue to monitor on telemetry for any further pauses. (2) Hypertension: Code(s): I10 - Essential (primary) hypertension Status: Acute Assessment and Plan: Chronic -amlodipine 5 mg daily on hold due to double of metoprolol for afib RVR. May consider adding if blood pressure allows -metoprolol 25 mg daily has been changed to twice a day. -continue losartan 100 mg daily -blood pressures reviewed and remain stable (3) Elevated brain natriuretic peptide (BNP) level: Code(s): R79.89 - Other specified abnormal findings of blood chemistry Status: Acute Assessment and Plan: BNP 3550 No known history of CHF - chest x-ray unremarkable - echo ordered Time Spent With Patient Time with patient: 25 - 35 minutes Subjective Date/time seen: 02/05/25 07:36 Interval history: 79-year-old female patient who has a history of irritable bowel syndrome, hypertension, and hot flashes presented to the hospital for a colonoscopy which was terminated for tachycardia, found to be in Afib RVR. No known history of Afib. Patient is pleasant sitting up comfortably in bed with family at bedside. She 4 second pause earlier this morning with associated dizziness which quickly resolved. She has no complaints at this time denying any chest pain, shortness a breath, palpitations, nausea/vomiting, and abdominal pain. Review of Systems Review of Systems: All systems reviewed & are unremarkable except as noted in HPI and below Exam Narrative: AF HR 94 RR 16 Spo2 97 BP 129/70 General: female in no acute respiratory distress who is nontoxic appearing, lying semi recumbent in bed. HEENT: Normocephalic. Atraumatic. Extraocular movement intact. Sclera clear and anicteric. No facial asymmetry. Chest: Lungs are clear to auscultation bilaterally. No wheezes or crackles. CV: Heart was irregularly irregular rate and rhythm. S1-S2. No murmurs, gallops, or rubs. Abd: Abdomen was soft. Nontender. Nondistended. Positive bowel sounds. Ext: No clubbing, cyanosis, or edema. DP pulses bilaterally. Neuro: Patient is alert and oriented x4. Speech is clear. Objective Data Vital Signs Vital Signs: Vital Signs - 24 hr 02/04/25 15:33 02/04/25 15:35 02/04/25 15:38 Temperature 97.9 F Pulse Rate 120 H 123 H Respiratory Rate 14 Blood Pressure 129/98 H Pulse Oximetry 100 100 Oxygen Delivery Nasal Cannula Oxygen Flow Rate 2 02/04/25 15:45 02/04/25 15:46 02/04/25 16:00 Temperature Pulse Rate 120 H 109 H 103 H Respiratory Rate 17 17 15 Blood Pressure 165/91 H Pulse Oximetry 96 100 100 Oxygen Delivery Oxygen Flow Rate 02/04/25 16:15 02/04/25 16:30 02/04/25 16:31 Temperature Pulse Rate 108 H 106 H 121 H Respiratory Rate 17 25 H 20 Blood Pressure Pulse Oximetry 100 99 97 Oxygen Delivery Oxygen Flow Rate 02/04/25 16:31 02/04/25 16:38 02/04/25 16:45 Temperature Pulse Rate 118 H 113 H 102 H Respiratory Rate 30 H 16 16 Blood Pressure 169/144 H 152/85 H Pulse Oximetry 100 99 Oxygen Delivery Oxygen Flow Rate 02/04/25 17:00 02/04/25 17:15 02/04/25 17:30 Temperature Pulse Rate 124 H 111 H 114 H Respiratory Rate 18 20 16 Blood Pressure Pulse Oximetry 98 100 95 Oxygen Delivery Oxygen Flow Rate 02/04/25 17:45 02/04/25 18:00 02/04/25 18:01 Temperature Pulse Rate 119 H 109 H 118 H Respiratory Rate 18 15 21 H Blood Pressure 154/84 H Pulse Oximetry 96 97 95 Oxygen Delivery Oxygen Flow Rate 02/04/25 18:04 02/04/25 18:15 02/04/25 18:29 Temperature Pulse Rate 115 H 135 H 115 H Respiratory Rate 17 Blood Pressure 154/84 H Pulse Oximetry 95 96 Oxygen Delivery Oxygen Flow Rate 02/04/25 18:30 02/04/25 18:39 02/04/25 18:45 Temperature Pulse Rate 113 H 106 H 127 H Respiratory Rate 15 18 17 Blood Pressure 154/84 H Pulse Oximetry 96 97 100 Oxygen Delivery Oxygen Flow Rate 02/04/25 18:46 02/04/25 19:00 02/04/25 19:15 Temperature Pulse Rate 114 H 109 H 103 H Respiratory Rate 16 23 H 28 H Blood Pressure 144/82 H Pulse Oximetry 95 98 Oxygen Delivery Oxygen Flow Rate 02/04/25 19:30 02/04/25 19:31 02/04/25 19:32 Temperature Pulse Rate 135 H 123 H 122 H Respiratory Rate 23 H 20 13 Blood Pressure 87/56 L Pulse Oximetry Oxygen Delivery Oxygen Flow Rate 02/04/25 19:45 02/04/25 19:56 02/04/25 20:00 Temperature Pulse Rate 113 H 124 H 102 H Respiratory Rate 18 19 18 Blood Pressure 147/82 H Pulse Oximetry 99 98 Oxygen Delivery Oxygen Flow Rate 02/04/25 22:00 02/04/25 23:36 02/05/25 00:00 Temperature 97.8 F Pulse Rate 99 92 99 Respiratory Rate 18 Blood Pressure 152/89 H Pulse Oximetry 97 Oxygen Delivery Oxygen Flow Rate 02/05/25 02:00 02/05/25 03:29 02/05/25 04:00 Temperature 97.7 F Pulse Rate 79 92 90 Respiratory Rate 16 Blood Pressure 133/69 Pulse Oximetry 98 Oxygen Delivery Oxygen Flow Rate 02/05/25 06:00 Temperature Pulse Rate 85 Respiratory Rate Blood Pressure Pulse Oximetry Oxygen Delivery Oxygen Flow Rate Intake/Output Intake/Output: Intake & Output 02/02/25 02/03/25 02/04/25 02/05/25 23:59 23:59 23:59 23:59 Intake Total 500 Balance 500 Meds/Results Medications: Active Medications Generic Name Dose Route Start Last Admin Trade Name Freq PRN Reason Stop Dose Admin Acetaminophen 650 mg 02/04/25 18:20 Acetaminophen 325 Mg Tablet PO Q4H PRN Mild Pain (1-3) or Fever Apixaban 5 mg 02/04/25 23:10 02/04/25 23:19 Apixaban 5 Mg Tablet PO 5 mg Q12HR KIRT Administration Dicyclomine HCl 20 mg 02/04/25 22:54 Dicyclomine Hcl 10 Mg Capsule PO QID PRN abdominal pain Escitalopram Oxalate 20 mg 02/05/25 09:00 Escitalopram Oxalate 10 Mg Tablet PO DAILY KIRT Losartan Potassium 100 mg 02/05/25 09:00 Losartan Potassium 100 Mg Tablet PO DAILY KIRT Metoprolol Tartrate 25 mg 02/05/25 09:00 Metoprolol Tartrate 25 Mg Tablet PO Q12HR KIRT Nortriptyline HCl 10 mg 02/04/25 23:10 02/04/25 23:19 Nortriptyline Hcl 10 Mg Capsule PO 10 mg QHS KIRT Administration Ondansetron HCl 4 mg 02/04/25 18:20 Ondansetron Inj 4 Mg/2 Ml Vial IV PUSH Q4H PRN Nausea Perflutren Lipid Microsphere 0 ml 02/04/25 18:30 Perflutren Lipid Microspheres 1.5 Ml Vial Diluted To 10 Ml Total Volume IV PUSH 02/07/25 18:31 ONCE PRN adequate visualization Protocol Radiology Results: ITS Impressions Chest X-Ray 02/04/25 17:12 Impression: No acute cardiopulmonary abnormality. Labs Labs: Laboratory Results - last 24 hr 02/04/25 02/04/25 02/05/25 17:15 17:16 03:00 WBC 7.4 8.7 RBC 4.13 L 3.86 L Hgb 11.7 L 11.0 L Hct 35.8 L 33.8 L MCV 86.7 87.6 MCH 28.3 28.5 MCHC 32.7 32.5 RDW 13.3 13.4 Plt Count 315 303 MPV 10.1 9.9 Immature Gran % (Auto) 0.1 Neut % (Auto) 65.6 Lymph % (Auto) 24.5 [place] % (Auto) 7.9 Eos % (Auto) 1.5 Baso % (Auto) 0.4 Lymph # (Auto) 1.82 [place] # (Auto) 0.6 Eos # (Auto) 0.1 Baso # (Auto) 0.0 Abs Immat Gran (auto) 0.01 Absolute Neuts (auto) 4.9 Absolute Nucleated RBC 0.000 Nucleated RBC % 0.0 PT 13.5 INR 1.0 APTT 25.8 Sodium 135 L 132 L Potassium 3.7 3.6 Chloride 101 98 Carbon Dioxide 27 29 Anion Gap 7 5 BUN 4 L D 8 Creatinine 0.46 L 0.46 L Estim Creat Clear Calc 71 70 Estimated GFR > 60 > 60 Glucose 109 100 Calcium 9.0 8.6 Magnesium 2.1 Total Bilirubin 0.6 AST 23 ALT 16 Alkaline Phosphatase 151 H NT-Pro-B Natriuret Pep 3550 H Total Protein 7.7 Albumin 4.0 Triglycerides 61 Cholesterol 181 LDL Cholesterol Direct 86 HDL Direct 66 TSH 0.665 TSH (Reflex) 0.630 Quality VTE Prophylaxis VTE prophylaxis: pharmacologic ordered
--- NOTE | 2025-02-05 08:32 | ECG_ITS ---
Test Date: 2025-02-05 08:46:09 Measurements Intervals [place] Rate: 90 P: 0 GA: 0 QRS: -27 QRSD: 145 T: 131 QT: 405 QTc: 496 Interpretive Statements ATRIAL FIBRILLATION LEFT BUNDLE BRANCH BLOCK BASELINE ARTIFACT- I, II, III, AVR, AVL, AVF, V1-V6 ABNORMAL ECG Compared to ECG 02/04/2025 15:48:35 HEART RATE HAS DECREASED Electronically Signed On 02-05-2025 09:08:32 CDT by Richard Fernandes D.O.
--- NOTE | 2025-02-05 09:12 | PM.CNCAR ---
Assessment and Plan Assessment and plan (1) Atrial fibrillation with rapid ventricular response: Code(s): I48.91 - Unspecified atrial fibrillation Status: Acute Assessment and Plan: This is a new diagnosis. Chronicity is unknown, although EKG in our system from August of this year demonstrates sinus rhythm with a first-degree AV block, left bundle branch block. I discussed the diagnosis of atrial fibrillation bleeding pathophysiology, management strategies including rate control versus rhythm control, complications/risks of atrial fibrillation. Since she is already rate controlled, we will proceed with rate control strategy with plan to attempt cardioversion as outpatient after she has been anticoagulated for 4-6 weeks. She had a 4.5 second pause this morning on telemetry with associated dizziness. Continue metoprolol, can shift to Toprol XL 50 mg daily at discharge for dosing convenience She has a CHADS2 Vasc score of 3 (age, gender, hypertension). Anticoagulation is indicated. Continue Eliquis 5 mg b.i.d. Check echo TSH is normal Check ApneaLink Continue to monitor on telemetry for any further pauses. (2) Hypertension: Code(s): I10 - Essential (primary) hypertension Status: Acute Assessment and Plan: At goal. Continue current medical regimen without change. History of Present Illness History of Present Illness Consult date/time: 02/05/25 09:12 Requesting physician: Staci Parish APRN Consult reason: atrial fibrillation Reason For Visit: New onset afib (intermittent RVR) Narrative: Daja Mckinley is an 79 year old female who was admitted from the GI lab because she was noted to have an elevated heart rate. Cardiology is consulted for atrial fibrillation. She does not have any prior history of any arrhythmia. She denies any palpitations, chest pain, shortness of breath. She does report that she has been experiencing intermittent dizziness for several months. No syncope or presyncope. She was given a dose of IV metoprolol and her home metoprolol dose was increased. Her heart rate is now well controlled. She is already been placed on Eliquis for systemic anticoagulation. At the time of my visit, she does not have any cardiac complaints. She does complain of soreness in her hips. Review of Systems Review of Systems: All systems reviewed & are unremarkable except as noted in HPI and below PMFSH Past Medical History Medical History Menopausal symptom Small intestinal bacterial overgrowth (SIBO) Lower abdominal pain Irritable bowel syndrome with diarrhea BMI 28.0-28.9,adult BMI 27.0-27.9,adult Abdominal pain Cigarette smoker one half pack a day or less BMI 26.0-26.9,adult Normal colonoscopy Hypertension Surgical History Surgical History H/O dilation and curettage X2 History of tonsillectomy History of shoulder surgery History of bladder surgery Family History Family History Mother Hypertension Cerebrovascular accident Family history of coronary artery disease Father Tuberculosis Sibling Brain aneurysm Social History Social History Social History: She is and has 2 children. She is retired. She desires to have her daughter is the power assistant prosecuting attorney. She has 2 children a daughter and a son. Code status: Full code Smoking packs per day: 0.50 Smoking cigarettes per day: 10.0 Years smoked: 50 Smoking pack-years: 25.00 Smoking status: Former smoker Tobacco type: cigarettes Second hand tobacco smoke exposure: No Smoking end date: 01/30/23 Alcohol intake: current Drinks per week: 2 Substance use: never Substance use type: does not use Lack of Transportation: No Lack of Food: Never True Current Housing: I Have Housing Concerned About Future Housing: No Difficulty Paying Gas/Electric Bills: No Difficulty Paying for Meds: No Currently Unemployed: No Education: High School Diploma/GED Difficulty w/ Childcare or Family Care: No Living arrangements: alone 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 Gender identity (if verbalized by the patient): Female Spiritual care concerns: No Meds Home Medications and Allergies Home Medications ?Medication ?Instructions ?Recorded ?Confirmed ?Type hydrocortisone 2.5 % topical cream 1 applic topical PRN PRN 01/11/24 02/04/25 History dermatology ketoconazole 2 % shampoo 1 applic topical 2XW 01/11/24 02/04/25 History ketoconazole 2 % topical cream 1 applic topical PRN 01/11/24 02/04/25 History escitalopram oxalate 20 mg tablet 20 mg PO DAILY #90 tabs 07/08/24 02/04/25 Rx (Lexapro) dicyclomine 20 mg tablet 20 mg PO QID PRN abdominal pain 1 10/23/24 02/04/25 Rx month #120 tabs nortriptyline 10 mg capsule 10 mg PO QHS 1 month #30 caps 01/09/25 02/04/25 Rx amlodipine 5 mg tablet See Rx Instructions .Route 02/02/25 02/04/25 Rx .COMPLEX #90 tabs losartan 100 mg tablet 100 mg PO DAILY #90 tabs 02/02/25 02/04/25 Rx metoprolol succinate 25 mg 25 mg PO DAILY #90 tabs 02/02/25 02/04/25 Rx tablet,extended release 24 hr Allergies Allergy/AdvReac Type Severity Reaction Status Date / Time cephalothin (From [place]) AdvReac Mild Hypotension Verified 02/04/25 20:38 codeine AdvReac Mild HYPERACTIVE Verified 02/04/25 20:38 ibuprofen AdvReac Mild Confusion Verified 02/04/25 20:38 acetaminophen (From Percocet) AdvReac Unknown Unknown Verified 02/04/25 20:38 morphine AdvReac Unknown Nausea and Verified 02/04/25 20:38 Vomiting oxycodone (From Percocet) AdvReac Unknown Unknown Verified 02/04/25 20:38 Vital Signs Vital Signs - 24 hr 02/04/25 15:33 02/04/25 15:35 02/04/25 15:38 Temperature 36.6 C Pulse Rate 120 H 123 H Respiratory Rate 14 Blood Pressure 129/98 H Pulse Oximetry 100 100 Oxygen Delivery Nasal Cannula Oxygen Flow Rate 2 02/04/25 15:45 02/04/25 15:46 02/04/25 16:00 Temperature Pulse Rate 120 H 109 H 103 H Respiratory Rate 17 17 15 Blood Pressure 165/91 H Pulse Oximetry 96 100 100 Oxygen Delivery Oxygen Flow Rate 02/04/25 16:15 02/04/25 16:30 02/04/25 16:31 Temperature Pulse Rate 108 H 106 H 121 H Respiratory Rate 17 25 H 20 Blood Pressure Pulse Oximetry 100 99 97 Oxygen Delivery Oxygen Flow Rate 02/04/25 16:31 02/04/25 16:38 02/04/25 16:45 Temperature Pulse Rate 118 H 113 H 102 H Respiratory Rate 30 H 16 16 Blood Pressure 169/144 H 152/85 H Pulse Oximetry 100 99 Oxygen Delivery Oxygen Flow Rate 02/04/25 17:00 02/04/25 17:15 02/04/25 17:30 Temperature Pulse Rate 124 H 111 H 114 H Respiratory Rate 18 20 16 Blood Pressure Pulse Oximetry 98 100 95 Oxygen Delivery Oxygen Flow Rate 02/04/25 17:45 02/04/25 18:00 02/04/25 18:01 Temperature Pulse Rate 119 H 109 H 118 H Respiratory Rate 18 15 21 H Blood Pressure 154/84 H Pulse Oximetry 96 97 95 Oxygen Delivery Oxygen Flow Rate 02/04/25 18:04 02/04/25 18:15 02/04/25 18:29 Temperature Pulse Rate 115 H 135 H 115 H Respiratory Rate 17 Blood Pressure 154/84 H Pulse Oximetry 95 96 Oxygen Delivery Oxygen Flow Rate 02/04/25 18:30 02/04/25 18:39 02/04/25 18:45 Temperature Pulse Rate 113 H 106 H 127 H Respiratory Rate 15 18 17 Blood Pressure 154/84 H Pulse Oximetry 96 97 100 Oxygen Delivery Oxygen Flow Rate 02/04/25 18:46 02/04/25 19:00 02/04/25 19:15 Temperature Pulse Rate 114 H 109 H 103 H Respiratory Rate 16 23 H 28 H Blood Pressure 144/82 H Pulse Oximetry 95 98 Oxygen Delivery Oxygen Flow Rate 02/04/25 19:30 02/04/25 19:31 02/04/25 19:32 Temperature Pulse Rate 135 H 123 H 122 H Respiratory Rate 23 H 20 13 Blood Pressure 87/56 L Pulse Oximetry Oxygen Delivery Oxygen Flow Rate 02/04/25 19:45 02/04/25 19:56 02/04/25 20:00 Temperature Pulse Rate 113 H 124 H 102 H Respiratory Rate 18 19 18 Blood Pressure 147/82 H Pulse Oximetry 99 98 Oxygen Delivery Oxygen Flow Rate 02/04/25 22:00 02/04/25 23:36 02/05/25 00:00 Temperature 36.6 C Pulse Rate 99 92 99 Respiratory Rate 18 Blood Pressure 152/89 H Pulse Oximetry 97 Oxygen Delivery Oxygen Flow Rate 02/05/25 02:00 02/05/25 03:29 02/05/25 04:00 Temperature 36.5 C Pulse Rate 79 92 90 Respiratory Rate 16 Blood Pressure 133/69 Pulse Oximetry 98 Oxygen Delivery Oxygen Flow Rate 02/05/25 06:00 02/05/25 08:00 Temperature 36.5 C Pulse Rate 85 95 Respiratory Rate 16 Blood Pressure 127/70 Pulse Oximetry 99 Oxygen Delivery Oxygen Flow Rate Exam Const: General: comfortable, no acute distress, alert and awake Orientation/consciousness: patient oriented x3 HENMT: Head: normal to inspection Eyes: General: appearance normal, both eyes and all related structures Pupils: Equal, round and reactive pupils present Neck: Neck: normal visual inspection, supple and no JVD Carotids: normal carotid upstroke Resp: Effort & Inspection: normal respiratory effort Auscultation: clear to auscultation bilaterally Cardio: Rate: regular rate Rhythm: abnormal rhythm irregularly irregular Heart sounds: S1 normal heart sound present, S2 normal heart sound present and no murmurs GI: Auscultation: normal bowel sounds Skin: General skin exam: normal color Neuro: General: patient oriented x3 Cranial nerves: Yes Equal, round and reactive pupils present Extrem: General: normal to inspection Psych: Appearance: grossly normal Mental Status: mental status grossly normal Results Labs and Meds 02/05/25 03:00 02/05/25 03:00 Lab results: Cardiac Enzymes 02/04/25 Range/Units 17:16 AST 23 (14-36) U/L Coagulation 02/04/25 Range/Units 17:16 PT 13.5 (11.1-14.7) Seconds APTT 25.8 (22.3-36.8) Seconds Lipids 02/05/25 Range/Units 03:00 Triglycerides 61 (<150) mg/dL Cholesterol 181 (0-200) mg/dL CBC 02/04/25 02/05/25 Range/Units 17:16 03:00 WBC 7.4 8.7 (4.5-10.0) K/mm3 RBC 4.13 L 3.86 L (4.2-5.4) M/mm3 Hgb 11.7 L 11.0 L (12.0-15.0) g/dL Hct 35.8 L 33.8 L (37.0-47.0) % Plt Count 315 303 (150-375) k/mm3 Lymph # (Auto) 1.82 (0.9-3.2) K/mm3 [place] # (Auto) 0.6 (0.1-0.6) K/mm3 Eos # (Auto) 0.1 (0-0.3) K/mm3 Baso # (Auto) 0.0 (0.0-0.1) K/mm3 Comprehensive Metabolic Panel 02/04/25 02/05/25 Range/Units 17:16 03:00 Sodium 135 L 132 L (137-145) mmol/L Potassium 3.7 3.6 (3.4-5.0) mmol/L Chloride 101 98 (98-107) mmol/L Carbon Dioxide 27 29 (22-30) mmol/L BUN 4 L D 8 (7-17) mg/dL Creatinine 0.46 L 0.46 L (0.7-1.0) mg/dL Glucose 109 100 (65-110) mg/dL Calcium 9.0 8.6 (8.4-10.2) mg/dL AST 23 (14-36) U/L ALT 16 (6-35) U/L Alkaline Phosphatase 151 H (38-126) U/L Total Protein 7.7 (6.3-8.2) g/dL Albumin 4.0 (3.5-5.1) g/dL Intake and Output 02/04/25 02/05/25 02/05/25 23:59 07:59 15:59 Intake Total 500 50 Balance 500 50 Intake: IV 500 Sodium Chloride 0.9% IV 500 ml 500 @ 999 mls/hr IV CONT .Q31M STA Rx#:[id number] Oral 50 Other: # Unmeasured Voids 2 1 Patient Weight 02/05/25 23:59 Weight 65.3 kg
[2025-02-05] MEDS: ESCITALOPRAM OXALATE 10 MG TABLET 20 MG PO (09:22)
[2025-02-05] MEDS: LOSARTAN POTASSIUM 100 MG TABLET PO (09:22)
[2025-02-05] MEDS: METOPROLOL TARTRATE 25 MG TABLET PO ×2 (09:22→21:00)
[2025-02-05] MEDS: APIXABAN 5 MG TABLET PO ×2 (09:23→21:00)
[2025-02-05] MEDS: PERFLUTREN LIPID MICROSPHERES 1.5 ML VIAL DILUTED TO 10 ML TOTAL VOLUME IV PUSH (11:08)
--- NOTE | 2025-02-05 11:09 | IVDEFINITY ---
Prior to administration of IV Definity the patient was educated on the risks and benefits of the imaging enhancing agent including potential adverse side effects. The patient verbalized understanding. Allergies were verified. No exclusion criteria were identified and at least one of the following inclusion criteria were met: 1) physician request, 2) patient technically difficult to image (per the [place] [employer]ocardi[employer] guidelines of two or more segments not discernable within the apical view), or 3) questionable left ventricular function. ?
[2025-02-05] MEDS: SIMETHICONE 80 MG TAB.CHEW PO (16:56)
[2025-02-05] MEDS: NORTRIPTYLINE HCL 10 MG CAPSULE PO (21:00)
[2025-02-06] VITALS (10 sets, daily range): BP systolic 135–153; BP diastolic 53–64; PULSE 51–58; RESP 12–16; TEMP 36.4–36.6; O2SAT 99–100
--- NOTE | 2025-02-06 00:04 | ECG_ITS ---
Test Date: 2025-02-06 00:13:01 Measurements Intervals [place] Rate: 55 P: 74 NE: 212 QRS: -24 QRSD: 150 T: 121 QT: 477 QTc: 459 Interpretive Statements SINUS BRADYCARDIA WITH FIRST DEGREE AV BLOCK WITH OCCASIONAL SUPRAVENTRICULAR PREMATURE COMPLEXES LEFT BUNDLE BRANCH BLOCK BASELINE ARTIFACT- I, III, AVR, AVL, AVF, V1-V6 ABNORMAL ECG Compared to ECG 02/05/2025 08:46:09 Atrial fibrillation no longer present Electronically Signed On 02-06-2025 06:26:39 CDT by Richard Fernandes D.O.
--- NOTE | 2025-02-06 00:35 | PC.NURSE ---
pt converted to sinus rhythm at 0005 02/06/2025 EKG was done to confirm this. pt resting comfortably
[2025-02-06 06:51] LABS: Hematocrit 32.9 % (37.0-47.0); Hemoglobin 10.8 g/dL (12.0-15.0); Mean Corpuscular HGB Conc 32.8 g/dl (32-36); Mean Corpuscular Hemoglobin 28.5 pg (26-34); Mean Corpuscular Volume 86.8 fl (80-100); Platelet Count Result 297 k/mm3 (150-375); Red Blood Count 3.79 M/mm3 (4.2-5.4); White Blood Count 7.6 K/mm3 (4.5-10.0)
[2025-02-06 07:10] LABS: Alanine Aminotransferase 16 U/L (6-35); Albumin Level 3.6 g/dL (3.5-5.1); Alkaline Phosphatase 113 U/L (38-126); Anion Gap 3 mmol/L (4-12); Aspartate Amino Transferase 24 U/L (14-36); Bilirubin,Total 0.5 mg/dL (0.2-1.3); Blood Urea Nitrogen 9 mg/dL (7-17); Calcium 8.7 mg/dL (8.4-10.2); Carbon Dioxide 29 mmol/L (22-30); Chloride 97 mmol/L (98-107); Estimated CRCL calculation 64 ml/min; Estimated Glomerular Filt Rate > 60; Glucose 108 mg/dL (65-110); Potassium 3.4 mmol/L (3.4-5.0); Sodium 129 mmol/L (137-145); Total Protein 6.6 g/dL (6.3-8.2)
--- NOTE | 2025-02-06 07:37 | P.PNCA_ITS ---
Progress Note: A&P Assessment and Plan (1) Atrial fibrillation with rapid ventricular response: Code(s): I48.91 - Unspecified atrial fibrillation Status: Acute Assessment and Plan: This is a new diagnosis. Chronicity is unknown, although EKG in our system from August of this year demonstrates sinus rhythm with a first-degree AV block, left bundle branch block. I discussed the diagnosis of atrial fibrillation bleeding pathophysiology, management strategies including rate control versus rhythm control, complications/risks of atrial fibrillation. She spontaneously converted to sinus rhythm and remains in sinus rhythm/sinus bradycardia with PVC's and bigeminy * Decrease and change metoprolol to ToprolXL 25mg daily with holding parameters * She has a CHADS2 Vasc score of 3 (age, gender, hypertension). Anticoagulation is indicated. Continue Eliquis 5 mg b.i.d. * Echo unremarkable * TSH is normal * AHI 19 on apnea link. Needs outpatient sleep study. * OK for discharge from a cardiac standpoint (2) Hypertension: Code(s): I10 - Essential (primary) hypertension Status: Acute Assessment and Plan: Resume amlodipine 5mg daily. Further adjustments can be made as an outpatient Subjective Date/time seen: 02/06/25 07:37 Interval history: Cardiology follow up visit Date of service 02/06/2025: Feels well this morning. No complaints. Eager to go home. Converted to sinus rhythm overnight Review of Systems Review of Systems: All systems reviewed & are unremarkable except as noted in HPI and below Exam Const: General: comfortable, no acute distress, alert and awake Orientation/consciousness: patient oriented x3 HENMT: Head: normal to inspection Eyes: General: appearance normal, both eyes and all related structures Pupils: Equal, round and reactive pupils present Neck: Neck: normal visual inspection, supple and no JVD Carotids: normal carotid upstroke Resp: Effort & Inspection: normal respiratory effort Auscultation: clear to auscultation bilaterally Cardio: Rate: regular rate Rhythm: regular rhythm Heart sounds: S1 normal heart sound present, S2 normal heart sound present and no murmurs GI: Auscultation: normal bowel sounds Skin: General skin exam: normal color Neuro: General: patient oriented x3 Cranial nerves: Yes Equal, round and reactive pupils present Extrem: General: normal to inspection Psych: Appearance: grossly normal Mental Status: mental status grossly normal Objective Data Vital Signs Vital Signs: Vital Signs - 24 hr 02/05/25 08:00 02/05/25 08:00 02/05/25 09:22 Temperature 36.5 C Pulse Rate 95 87 98 Respiratory Rate 16 Blood Pressure 127/70 Pulse Oximetry 99 Oxygen Delivery Fraction of Inspired Oxygen 02/05/25 10:00 02/05/25 11:57 02/05/25 12:00 Temperature 36.5 C Pulse Rate 84 94 96 Respiratory Rate 16 Blood Pressure 129/70 Pulse Oximetry 97 Oxygen Delivery Fraction of Inspired Oxygen 02/05/25 14:00 02/05/25 16:00 02/05/25 16:00 Temperature 36.6 C Pulse Rate 88 103 H 78 Respiratory Rate 16 Blood Pressure 122/77 Pulse Oximetry 100 Oxygen Delivery Fraction of Inspired Oxygen 02/05/25 18:00 02/05/25 20:00 02/05/25 20:14 Temperature 36.6 C Pulse Rate 84 79 79 Respiratory Rate 14 Blood Pressure 131/96 H Pulse Oximetry 97 Oxygen Delivery Fraction of Inspired Oxygen 02/05/25 21:00 02/05/25 22:00 02/05/25 22:42 Temperature Pulse Rate 88 93 96 Respiratory Rate Blood Pressure Pulse Oximetry 97 Oxygen Delivery Room Air Fraction of Inspired Oxygen 21 02/05/25 23:23 02/06/25 00:00 02/06/25 02:00 Temperature 36.5 C Pulse Rate 78 52 L 58 L Respiratory Rate 15 Blood Pressure 149/83 H Pulse Oximetry 96 Oxygen Delivery Fraction of Inspired Oxygen 02/06/25 04:00 02/06/25 04:00 02/06/25 04:22 Temperature 36.4 C Pulse Rate 51 L 53 L Respiratory Rate 16 Blood Pressure 153/58 H Pulse Oximetry 100 Oxygen Delivery Room Air Fraction of Inspired Oxygen 02/06/25 06:00 Temperature Pulse Rate 56 L Respiratory Rate Blood Pressure Pulse Oximetry Oxygen Delivery Fraction of Inspired Oxygen Intake/Output Intake/Output: Intake & Output 02/03/25 02/04/25 02/05/25 02/06/25 23:59 23:59 23:59 23:59 Intake Total 500 675 220 Balance 500 675 220 Meds/Results Medications: Active Medications Generic Name Dose Route Start Last Admin Trade Name Freq PRN Reason Stop Dose Admin Acetaminophen 650 mg 02/04/25 18:20 Acetaminophen 325 Mg Tablet PO Q4H PRN Mild Pain (1-3) or Fever Apixaban 5 mg 02/04/25 23:10 02/05/25 21:00 Apixaban 5 Mg Tablet PO 5 mg Q12HR KIRT Administration Dicyclomine HCl 20 mg 02/04/25 22:54 Dicyclomine Hcl 10 Mg Capsule PO QID PRN abdominal pain Escitalopram Oxalate 20 mg 02/05/25 09:00 02/05/25 09:22 Escitalopram Oxalate 10 Mg Tablet PO 20 mg DAILY KIRT Administration Losartan Potassium 100 mg 02/05/25 09:00 02/05/25 09:22 Losartan Potassium 100 Mg Tablet PO 100 mg DAILY KIRT Administration Nortriptyline HCl 10 mg 02/04/25 23:10 02/05/25 21:00 Nortriptyline Hcl 10 Mg Capsule PO 10 mg QHS KIRT Administration Ondansetron HCl 4 mg 02/04/25 18:20 Ondansetron Inj 4 Mg/2 Ml Vial IV PUSH Q4H PRN Nausea Simethicone 80 mg 02/05/25 10:13 02/05/25 16:56 Simethicone 80 Mg Tab.Chew PO 80 mg QID PRN Administration gas/bloating Radiology Results: ITS Impressions Chest X-Ray 02/04/25 17:12 Impression: No acute cardiopulmonary abnormality. Labs Labs: Laboratory Results - last 24 hr 02/05/25 02/06/25 08:34 06:33 WBC 7.6 RBC 3.79 L Hgb 10.8 L Hct 32.9 L MCV 86.8 MCH 28.5 MCHC 32.8 RDW 13.2 Plt Count 297 MPV 10.1 Sodium 129 L Potassium 3.4 Chloride 97 L Carbon Dioxide 29 Anion Gap 3 L BUN 9 Creatinine 0.52 L Estim Creat Clear Calc 64 Estimated GFR > 60 Glucose 108 POC Capillary Glucose 195 H Calcium 8.7 Total Bilirubin 0.5 AST 24 ALT 16 Alkaline Phosphatase 113 Total Protein 6.6 Albumin 3.6 Quality VTE Prophylaxis VTE prophylaxis: pharmacologic ordered
--- NOTE | 2025-02-06 08:46 | PM.IMPN ---
Progress Note: A&P Assessment and Plan (1) New onset atrial fibrillation: Code(s): I48.91 - Unspecified atrial fibrillation Status: Acute Assessment and Plan: In ED found to be in afib HR 120 on EKG, given 2.5 mg of metoprolol and IV fluids in the emergency room. - TSH ordered to rule out metabolic cause for tachyarrhythmia. WNL. - Medication: metoprolol 25 mg BID, dose frequency doubled from home - Chadsvasc Score 4 (age, female, HTN) and HASBLED 2 Anticoagulation: Eliquis 5 mg BID - Echo: LVEF 50-55% - Telemetry - Cardiology consulted Since she is already rate controlled, we will proceed with rate control strategy with plan to attempt cardioversion as outpatient after she has been anticoagulated for 4-6 weeks. She had a 4.5 second pause this morning on telemetry with associated dizziness. Monitor. Continue metoprolol, can shift to Toprol XL 50 mg daily at discharge for dosing convenience Continue Eliquis 5 mg b.i.d. Check ApneaLink Continue to monitor on telemetry for any further pauses. (2) Hypertension: Code(s): I10 - Essential (primary) hypertension Status: Acute Assessment and Plan: Chronic -amlodipine 5 mg daily on hold due to double of metoprolol for afib RVR. May consider adding if blood pressure allows -metoprolol 25 mg daily has been changed to twice a day. -continue losartan 100 mg daily -blood pressures reviewed and remain stable (3) Elevated brain natriuretic peptide (BNP) level: Code(s): R79.89 - Other specified abnormal findings of blood chemistry Status: Acute Assessment and Plan: BNP 3550 No known history of CHF - chest x-ray unremarkable - echo ordered Time Spent With Patient Time with patient: 25 - 35 minutes Subjective Date/time seen: 02/06/25 08:46 Interval history: 79-year-old female patient who has a history of irritable bowel syndrome, hypertension, and hot flashes presented to the hospital for a colonoscopy which was terminated for tachycardia, found to be in Afib RVR. No known history of Afib. Review of Systems Review of Systems: All systems reviewed & are unremarkable except as noted in HPI and below Exam Narrative: AF HR General: female in no acute respiratory distress who is nontoxic appearing, lying semi recumbent in bed. HEENT: Normocephalic. Atraumatic. Extraocular movement intact. Sclera clear and anicteric. No facial asymmetry. Chest: Lungs are clear to auscultation bilaterally. No wheezes or crackles. CV: Heart was irregularly irregular rate and rhythm. S1-S2. No murmurs, gallops, or rubs. Abd: Abdomen was soft. Nontender. Nondistended. Positive bowel sounds. Ext: No clubbing, cyanosis, or edema. DP pulses bilaterally. Neuro: Patient is alert and oriented x4. Speech is clear. Objective Data Vital Signs Vital Signs: Vital Signs - 24 hr 02/05/25 09:22 02/05/25 10:00 02/05/25 11:57 Temperature 97.7 F Pulse Rate 98 84 94 Respiratory Rate 16 Blood Pressure 129/70 Pulse Oximetry 97 Oxygen Delivery Fraction of Inspired Oxygen 02/05/25 12:00 02/05/25 14:00 02/05/25 16:00 Temperature Pulse Rate 96 88 103 H Respiratory Rate Blood Pressure Pulse Oximetry Oxygen Delivery Fraction of Inspired Oxygen 02/05/25 16:00 02/05/25 18:00 02/05/25 20:00 Temperature 97.8 F Pulse Rate 78 84 79 Respiratory Rate 16 Blood Pressure 122/77 Pulse Oximetry 100 Oxygen Delivery Fraction of Inspired Oxygen 02/05/25 20:14 02/05/25 21:00 02/05/25 22:00 Temperature 97.8 F Pulse Rate 79 88 93 Respiratory Rate 14 Blood Pressure 131/96 H Pulse Oximetry 97 Oxygen Delivery Fraction of Inspired Oxygen 02/05/25 22:42 02/05/25 23:23 02/06/25 00:00 Temperature 97.7 F Pulse Rate 96 78 52 L Respiratory Rate 15 Blood Pressure 149/83 H Pulse Oximetry 97 96 Oxygen Delivery Room Air Fraction of Inspired Oxygen 21 02/06/25 02:00 02/06/25 04:00 02/06/25 04:00 Temperature Pulse Rate 58 L 51 L Respiratory Rate Blood Pressure Pulse Oximetry Oxygen Delivery Room Air Fraction of Inspired Oxygen 02/06/25 04:22 02/06/25 06:00 02/06/25 08:00 Temperature 97.6 F 97.7 F Pulse Rate 53 L 56 L 52 L Respiratory Rate 16 16 Blood Pressure 153/58 H 152/64 H Pulse Oximetry 100 99 Oxygen Delivery Fraction of Inspired Oxygen Intake/Output Intake/Output: Intake & Output 02/03/25 02/04/25 02/05/25 02/06/25 23:59 23:59 23:59 23:59 Intake Total 500 675 220 Balance 500 675 220 Meds/Results Medications: Active Medications Generic Name Dose Route Start Last Admin Trade Name Freq PRN Reason Stop Dose Admin Acetaminophen 650 mg 02/04/25 18:20 Acetaminophen 325 Mg Tablet PO Q4H PRN Mild Pain (1-3) or Fever Apixaban 5 mg 02/04/25 23:10 02/05/25 21:00 Apixaban 5 Mg Tablet PO 5 mg Q12HR KIRT Administration Dicyclomine HCl 20 mg 02/04/25 22:54 Dicyclomine Hcl 10 Mg Capsule PO QID PRN abdominal pain Escitalopram Oxalate 20 mg 02/05/25 09:00 02/05/25 09:22 Escitalopram Oxalate 10 Mg Tablet PO 20 mg DAILY KIRT Administration Losartan Potassium 100 mg 02/05/25 09:00 02/05/25 09:22 Losartan Potassium 100 Mg Tablet PO 100 mg DAILY KIRT Administration Metoprolol Succinate 25 mg 02/06/25 09:00 Metoprolol Succinate Ext Rel 25 Mg Tabcr PO QAM KIRT Nortriptyline HCl 10 mg 02/04/25 23:10 02/05/25 21:00 Nortriptyline Hcl 10 Mg Capsule PO 10 mg QHS KIRT Administration Ondansetron HCl 4 mg 02/04/25 18:20 Ondansetron Inj 4 Mg/2 Ml Vial IV PUSH Q4H PRN Nausea Simethicone 80 mg 02/05/25 10:13 02/05/25 16:56 Simethicone 80 Mg Tab.Chew PO 80 mg QID PRN Administration gas/bloating Radiology Results: ITS Impressions Chest X-Ray 02/04/25 17:12 Impression: No acute cardiopulmonary abnormality. Labs Labs: Laboratory Results - last 24 hr 02/06/25 06:33 WBC 7.6 RBC 3.79 L Hgb 10.8 L Hct 32.9 L MCV 86.8 MCH 28.5 MCHC 32.8 RDW 13.2 Plt Count 297 MPV 10.1 Sodium 129 L Potassium 3.4 Chloride 97 L Carbon Dioxide 29 Anion Gap 3 L BUN 9 Creatinine 0.52 L Estim Creat Clear Calc 64 Estimated GFR > 60 Glucose 108 Calcium 8.7 Total Bilirubin 0.5 AST 24 ALT 16 Alkaline Phosphatase 113 Total Protein 6.6 Albumin 3.6 Quality VTE Prophylaxis VTE prophylaxis: pharmacologic ordered
[2025-02-06] MEDS: ESCITALOPRAM OXALATE 10 MG TABLET 20 MG PO (09:35)
[2025-02-06] MEDS: METOPROLOL SUCCINATE EXT REL 25 MG TABCR PO (09:36)
[2025-02-06] MEDS: LOSARTAN POTASSIUM 100 MG TABLET PO (09:36)
[2025-02-06] MEDS: APIXABAN 5 MG TABLET PO (09:36)
[2025-02-06] MEDS: SIMETHICONE 80 MG TAB.CHEW PO (09:56)
[2025-02-06 13:16] LABS: IFOB Positive Control Positive; Immunochemical Fecal Occult Bl Positive (N)
--- NOTE | 2025-02-06 13:38 | P.DS_ITS ---
DS: Admitting Diagnosis Discharge Date 02/06/2025 Admitting Diagnosis new onset afib htn bnp DS: Discharge Diagnosis Discharge Diagnosis (1) New onset atrial fibrillation: Code(s): I48.91 - Unspecified atrial fibrillation Status: Acute (2) Hypertension: Code(s): I10 - Essential (primary) hypertension Status: Acute (3) Elevated brain natriuretic peptide (BNP) level: Code(s): R79.89 - Other specified abnormal findings of blood chemistry Status: Acute DS: Summary Hospital Course Reason for hospitalization: new onset afib htn bnp Hospital Course: 79-year-old female patient who has a history of irritable bowel syndrome, hypertension, and hot flashes presented to the hospital for a colonoscopy which was terminated for tachycardia. In ED found to be in afib HR 120 on EKG, given 2.5 mg of metoprolol and IV fluids in the emergency room. No known history of Afib. TSH ordered to rule out metabolic cause for tachyarrhythmia which was WNL. Cardiology consulted. Echo was obtained and unremarkable. Patient started on eliquis for elevated chadsvasc score. Had an in depth conversation with patient and her daughter about risks of anticoagulation, they stated understanding. Patient metoprolol changed to toprol xl 25 mg daily per car diology. Initially patients home amlodipine was being held given the increased metoprolol however she continued to have elevated blood pressures which prompted this medication to be resumed. Blood pressures remain stable and patient denies any dizziness/lightheadedness. Patient also had an apnea link performed which showed several episodes of apnea with no significant desaturations. Discussed with patient and family that she needs an official sleep study which is to be ordered per PCP, they stated understanding. Patient had a slightly low sodium level on day of discharge. She remained asymptomatic. She has chronic hyponatremia which per family is being monitored per PCP. Patient to obtain a BMP and follow up with PCP for further evaluation. Patient had no complaints at time of discharge denying chest pain, shortness of breath, palpitations, nausea/vomiting, abdominal pain. Patient discharged home with family in a stable condition. She is to follow-up with her primary care provider in 1 week and Cardiology as scheduled. Status at Discharge Functional status at discharge: independent ambulation Time Spent with Patient Time attestation: Total time spent providing and/or coordinating discharge services: Time spent: Greater than 30 minutes Exam Narrative: AF HR 54 RR 12 Spo2 100 BP 135/53 General: female in no acute respiratory distress who is nontoxic appearing, sitting on side of the bed and ambulating throughout the room without assistive device HEENT: Normocephalic. Atraumatic. Extraocular movement intact. Sclera clear and anicteric. No facial asymmetry. Chest: Lungs are clear to auscultation bilaterally. No wheezes or crackles. CV: Heart was irregularly irregular rate and rhythm. Abd: Abdomen was soft. Nontender. Nondistended. Positive bowel sounds. Ext: No clubbing, cyanosis, or edema. DP pulses bilaterally. Neuro: Patient is alert. Speech is clear. DS: Data Data Completed and Pending Completed studies during hospitalization: chest xr Labs on day of discharge: Labs from last 24 hours 02/06/25 02/06/25 13:01 06:33 WBC 7.6 RBC 3.79 L Hgb 10.8 L Hct 32.9 L MCV 86.8 MCH 28.5 MCHC 32.8 RDW 13.2 Plt Count 297 MPV 10.1 Sodium 129 L Potassium 3.4 Chloride 97 L Carbon Dioxide 29 Anion Gap 3 L BUN 9 Creatinine 0.52 L Estim Creat Clear Calc 64 Estimated GFR > 60 Glucose 108 Calcium 8.7 Total Bilirubin 0.5 AST 24 ALT 16 Alkaline Phosphatase 113 Total Protein 6.6 Albumin 3.6 Stl Occult Blood (IFOB) Positive H Discharge Plan Discharge Attending physician on discharge: Gracie Arita Consulting providers: Xuan Curry; Dov Barahona Discharging Clinician: Xuan Curry Anticipated Discharge Date/Time: 02/06/25 13:17 Patient Disposition: Home Activity: as tolerated Diet: as tolerated and heart healthy Discharge Instructions: Discharge disposition: Patient admitted to the hospital for new onset AFib Evaluated by Cardiology Take all medications as prescribed even if feeling better Toprol XL 25 mg daily Eliquis twice a day Attached is information on these medications Strict bleeding precautions since you are being started on Eliquis including shaving with an electric razor, holding pressure for greater than 20 minutes for injury, protection of had with any falls, etc. Follow up with cardiology Patient underwent an apnea link during admission that showed multiple episodes of apnea but no prolonged desaturations in oxygenation Patient needs to obtain an official outpatient sleep study Follow up with PCP for referral Patient did have a slightly lower sodium level Patient remains asymptomatic Obtain a repeat BMP in 3-5 days to further reassess Follow-up with primary care provider Monitor blood pressures Continue amlodipine and losartan as previously prescribed Take caution while standing, rising, or moving Change positions slowly taking a break between each position change If you standing feel dizzy sit back down and take a break Encouraged to continue with yearly vaccinations Return to the emergency department if he developed sudden shortness of breath, chest pain, nausea, vomiting, upset stomach or intractable diarrhea Return to the emergency department if you develop fever greater than 100.5 Follow-up with the primary care physician within 1-2 weeks Thank you for choosing [facility] for your healthcare needs Patient Instructions: Metoprolol (By mouth), Apixaban (By mouth), Heart Failure (GEN), A-fib (Atrial Fibrillation) (DC), Blood Thinners (DC) Patient Language: Qatari Stand Alone Forms: General Discharge Information Follow-up/Referrals: Dov Barahona MD [Physician, Interventional Cardiology] - Call for Appointment Guilherme Alexis MD [Primary Care Provider, Family Practice] - 1 Week Discharge Medications: New metoprolol succinate [Toprol XL] 25 mg Tablet Extended Release 24 Hr 25 mg PO QAM Qty: 30 0RF Eliquis 5 mg Tablet 5 mg PO Q12HR Qty: 60 0RF Continued ketoconazole 2 % cream 1 applic topical PRN hydrocortisone 2.5 % cream 1 applic topical PRN PRN (Reason: dermatology) ketoconazole 2 % shampoo 1 applic topical 2XW escitalopram oxalate [Lexapro] 20 mg tablet 20 mg PO DAILY Qty: 90 3RF dicyclomine 20 mg tablet 20 mg PO QID PRN (Reason: abdominal pain) 30 Days Qty: 120 5RF nortriptyline 10 mg capsule 10 mg PO QHS 30 Days Qty: 30 3RF losartan 100 mg tablet 100 mg PO DAILY Qty: 90 0RF amlodipine 5 mg tablet See Rx Instructions .ROUTE .COMPLEX Qty: 90 0RF Dose Instruction: TAKE 1 TABLET BY MOUTH DAILY Rx Instructions: TAKE 1 TABLET BY MOUTH DAILY Discontinued metoprolol succinate 25 mg tablet extended release 24 hr 25 mg PO DAILY Qty: 90 3RF Other Ambulatory Orders: Basic Metabolic Panel (Routine) Timeframe: 5 Days Location: Determined by Patient Ordered By: Xuan Curry Date of admission: 02/05/25 12:42 Primary Care Provider: Guilherme Alexis Admitting Provider: Benito Ibarra Attending physician on admission: Benito Ibarra Condition: Stable Hospitalist MIPS Heart Failure (Exclusion) Patient has history of Heart Transplant or Left Ventricular Assistive Device?: No IF YES, STOP HERE Heart Failure (Qualifier) Patient has current or prior documentation of LVEF less than or equal to 40%, or mod/servere depressed LVSF?: No IF NO, STOP HERE
== END 2025-02-06 15:45 | disposition home or self-care (01) | DRG 309 ==
LOC: ANHED 18:25 → ANHIMU 19:17
PROVIDERS: Nurse Practitioner; Admitting Provider Family Medicine; Emergency Provider Student in an Organized Health Care Education/Training Program; PCP Family Medicine; Visit Provider Student in an Organized Health Care Education/Training Program
DX: I48.91 Unspecified atrial fibrillation (principal); E87.1 Hypo-osmolality and hyponatremia; R79.89 Other specified abnormal findings of blood chemistry; K58.0 Irritable bowel syndrome with diarrhea; I10 Essential (primary) hypertension; G47.30 Sleep apnea, unspecified; M25.552 Pain in left hip; M25.551 Pain in right hip; I95.9 Hypotension, unspecified; F10.90 Alcohol use, unspecified, uncomplicated; Z87.891 Personal history of nicotine dependence
CPT/HCPCS: 36415; 71045; 80048; 80053; 80061; 82274; 82948; 83735; 83880; 84443; 85025; 85027; 85610; 85730; 93005; 94762; 96374; 96375; 99285; A9270; C8929; G0378; J0616; J7040; Q9957